=== PATIENT | male | born 1965 | race Caucasian/White ===

== ENCOUNTER 2018-02-02 07:45 | Inpatient (IN) | payer SELFPAY ==
[2018-02-02] VITALS (20 sets, daily range): BP systolic 111–186; BP diastolic 57–95; PULSE 47–84; RESP 11–24; TEMP 97.3–98.1; O2SAT 93–100
[~2018-02-02] VITALS: Ht 167.6 cm; Wt 100.5 kg
[~2018-02-02 07:45] MED LIST: ALPR.25 PO; ASPI325T PO; CARV6.25 PO; LISI-357 PO; MAGN250T13 PO; PLAV75TA PO; PRAV40TA2 PO
--- NOTE | 2018-02-02 07:57 | PD ---
HPI Chief Complaint: Chest Pain Time Seen by Provider: 07:47 Travel History International Travel<30 days: No Contact w/Intl Traveler<30days: No Traveled to known affect area: No History of Present Illness HPI 52 y/o male presents from triage with his with intermittent chest pain for the past couple of days. He states that it got worse this morning. He states he also started sweating this morning. He states that he took a full aspirin today. He states that he currently does not have insurance and has not followed with a district manager for a couple of years. He states his last stent was in 2013 and he had one also in 2005. He denies any heart workup since then. He denies any other concurrent complaints. Quality is pressure. Severity is moderate. He denies specific modifying factors. PFSH Past Medical History Hx Anticoagulant Therapy: Yes Arthritis: Yes Asthma: No Autoimmune Disease: No Blood Disorders: No Anxiety: Yes Depression: Yes Heart Rhythm Problems: No Cancer: No Cardiac Catheterization: Yes (10/25/2013) Cardiovascular Problems: Yes High Cholesterol: No Chemotherapy: No Chest Pain: Yes Congestive Heart Failure: No COPD: No Cerebrovascular Accident: No Diabetes: No Diminished Hearing: No Endocrine: No Gastrointestinal Disorders: Yes (ACID REFLUX) GERD: Yes Glaucoma: No Genitourinary: No Headaches: No Hepatitis: No Hiatal Hernia: No Hypertension: No Immune Disorder: No Kidney Stones: No Musculoskeletal: Yes Neurologic: No Psychiatric: Yes Reproductive: No Respiratory: Yes Migraines: No Myocardial Infarction: Yes () Radiation Therapy: No Renal Failure: No Seizures: No Sickle Cell Disease: No Sleep Apnea: No Thyroid Disease: No Ulcer: No Tetanus Vaccination: Unknown Influenza Vaccination: No Past Surgical History Abdominal Surgery: No AICD: No Appendectomy: No Arteriovenous Shunt: No Body Medical Devices: ESOPHAGITIS Cardiac Surgery: No Cholecystectomy: No Coronary Stent: Yes (05/2006X1 - 10/2013X1) Ear Surgery: No Endocrine Surgery: No Eye Surgery: No Genitourinary Surgery: No Gynecologic Surgery: No Insulin Pump: No Joint Replacement: No Oral Surgery: No Pacemaker: No Thoracic Surgery: No Tonsillectomy: Yes (1969) Other Surgery: Yes Social History Alcohol Use: No Tobacco Use: Yes Substance Use: No Allergies-Medications (Allergen,Severity, Reaction): Coded Allergies: No Known Allergies (Unverified , 02/02/18) Reported Meds & Prescriptions Reported Meds & Active Scripts Active Reported [Fish Oil] 1 Cap PO DAILY Aspirin 325 Mg Tab 325 Mg PO DAILY Review of Systems Except as stated in HPI: all other systems reviewed are Neg Physical Exam Narrative GENERAL: 52-year-old male who appears uncomfortable SKIN: Focused skin assessment diaphoretic HEAD: Atraumatic. Normocephalic. EYES: Pupils equal and round. No scleral icterus. No injection or drainage. ENT: No nasal bleeding or discharge. Mucous membranes pink and moist. NECK: Trachea midline. No JVD. CARDIOVASCULAR: Regular rate and rhythm. RESPIRATORY: No accessory muscle use. Clear to auscultation. Breath sounds equal bilaterally. GASTROINTESTINAL: Abdomen soft, non-tender, nondistended. MUSCULOSKELETAL: No obvious deformities. No clubbing. No cyanosis. No edema. NEUROLOGICAL: Awake and alert. No obvious cranial nerve deficits. Motor grossly within normal limits. Normal speech. Data Data Last Documented VS Vital Signs Date Time Temp Pulse Resp B/P (MAP) Pulse Ox O2 Delivery O2 Flow Rate FiO2 02/02/18 09:19 55 158/70 02/02/18 09:13 18 98 Nasal Cannula 2.00 02/02/18 07:55 97.3 Orders Orders Electrocardiogram (02/02/18 07:49) B-Type Natriuretic Peptide (02/02/18 07:49) Ckmb (Isoenzyme) Profile (02/02/18 07:49) Complete Blood Count With Diff (02/02/18 07:49) Comprehensive Metabolic Panel (02/02/18 07:49) Magnesium (Mg) (02/02/18 07:49) Prothrombin Time / Inr (Pt) (02/02/18 07:49) Act Partial Throm Time (Ptt) (02/02/18 07:49) Troponin I (02/02/18 07:49) Lipase (02/02/18 07:49) Chest, Single Ap (02/02/18 07:49) Ecg Monitoring (02/02/18 07:49) Bilateral Bp Monitoring (02/02/18 07:49) Iv Access Insert/Monitor (02/02/18 07:49) Oximetry (02/02/18 07:49) Nitroglycerin-D5w 50 Mg/250 Ml (Nitrogly (02/02/18 08:00) Sodium Chloride 0.9% Flush (Ns Flush) (02/02/18 08:00) Electrocardiogram (02/02/18 08:00) Heparin Inj (Heparin Inj) (02/02/18 08:15) Heparin Inj (Heparin Inj) (02/02/18 14:15) Heparin Inj (Heparin Inj) (02/02/18 14:15) Heparin-D5w 25,000 U/250 Ml (Heparin-D5w (02/02/18 08:15) Cbc No Diff, Includes Plts (02/05/18 06:00) Act Partial Throm Time (Ptt) (02/02/18 15:09) Occult Blood (Hemoccult) Stool (02/02/18 08:09) Diet Npo (02/02/18 Breakfast) Pantoprazole Inj (Protonix Inj) (02/02/18 08:15) Morphine Inj (Morphine Inj) (02/02/18 08:30) Ondansetron Inj (Zofran Inj) (02/02/18 08:30) Consult Cardiology (02/02/18 ) (Hub Use Only)Inp Phy Cons/Ref (02/02/18 ) Admit Order (Ed Use Only) (02/02/18 09:40) Labs Laboratory Tests Test 02/02/18 07:50 White Blood Count 11.2 TH/MM3 Red Blood Count 5.81 MIL/MM3 Hemoglobin 19.3 GM/DL Hematocrit 54.2 % Mean Corpuscular Volume 93.4 FL Mean Corpuscular Hemoglobin 33.2 PG Mean Corpuscular Hemoglobin Concent 35.5 % Red Cell Distribution Width 13.5 % Platelet Count 193 TH/MM3 Mean Platelet Volume 9.0 FL Neutrophils (%) (Auto) 63.6 % Lymphocytes (%) (Auto) 24.9 % Monocytes (%) (Auto) 8.2 % Eosinophils (%) (Auto) 2.3 % Basophils (%) (Auto) 1.0 % Neutrophils # (Auto) 7.1 TH/MM3 Lymphocytes # (Auto) 2.8 TH/MM3 Monocytes # (Auto) 0.9 TH/MM3 Eosinophils # (Auto) 0.3 TH/MM3 Basophils # (Auto) 0.1 TH/MM3 CBC Comment DIFF FINAL Differential Comment Prothrombin Time 10.5 SEC Prothromb Time International Ratio 1.0 RATIO Activated Partial Thromboplast Time 27.5 SEC Blood Urea Nitrogen 17 MG/DL Creatinine 0.98 MG/DL Random Glucose 124 MG/DL Total Protein 8.4 GM/DL Albumin 3.8 GM/DL Calcium Level 9.1 MG/DL Magnesium Level 2.2 MG/DL Alkaline Phosphatase 93 U/L Aspartate Amino Transf (AST/SGOT) 20 U/L Alanine Aminotransferase (ALT/SGPT) 41 U/L Total Bilirubin 0.3 MG/DL Sodium Level 139 MEQ/L Potassium Level 3.9 MEQ/L Chloride Level 104 MEQ/L Carbon Dioxide Level 23.8 MEQ/L Anion Gap 11 MEQ/L Estimat Glomerular Filtration Rate 80 ML/MIN Total Creatine Kinase 75 U/L Troponin I LESS THAN 0.02 NG/ML B-Type Natriuretic Peptide 37 PG/ML Lipase 313 U/L [facility] Medical Decision Making Medical Screen Exam Complete: Yes Emergency Medical Condition: Yes Medical Record Reviewed: Yes (Past history confirmed) Interpretation(s) EKG is sinus rhythm at 73, hyperacute T's laterally, no ST elevation or depression Repeat EKG unchanged CBC & BMP Diagram 02/02/18 07:50 Total Protein 8.4 H, Albumin 3.8, Calcium Level 9.1, Magnesium Level 2.2, Alkaline Phosphatase 93, Aspartate Amino Transf (AST/SGOT) 20, Alanine Aminotransferase (ALT/SGPT) 41, Total Bilirubin 0.3 Last 24 hours Impressions Chest X-Ray 02/02/18 0749 Signed Impressions: CONCLUSION: No acute abnormality or significant interval change. Differential Diagnosis PR, vasospasm, gastritis, CHF Narrative Course Will check lab work, chest x-ray, EKG and placed on nitroglycerin drip and he will need to be monitored closely. On recheck pain has gone down from 10 out 10 to 8 out of 10 on nitroglycerin drip. Repeat EKG is unchanged. Will keep n.p.o. and start heparin drip after discussion with district manager Pain is now 3 out of 10. Will dose with morphine and admit. Patient agrees to plan Critical Care Narrative Aggregate critical care time was 45 minutes. Time to perform other separately billable procedures was not included in the critical care time. My time did not include minutes spent treating any other patients simultaneously or on activities that did not directly contribute to the patient's treatment. The services I provided to this patient were to treat and/or prevent clinically significant deterioration that could result in: PR, cardiogenic shock, I provided critical care services requiring my management, as noted below: Chart data review, documentation time, medication orders and management, vital sign assessments/reviewing monitor data, ordering and reviewing lab tests, ordering and interpreting/reviewing x-rays and diagnostic studies, care of the patient and discussion of the patient with the admitting physicians. Physician Communication Physician Communication Dr. Brown agrees to nitroglycerin drip and to close repeat EKG. Dr. Brown request data input clerk.o. and heparin dr wong agrees to admit Diagnosis Primary Impression: Unstable angina Admitting Information Admitting Physician Requests: Admit Abigail Hernandez MD February 02, 2018 07:57
[2018-02-02] MEDS ORDERED: SODIUM CHLORIDE 0.9% FLUSH 10 ML FLUSH IVF PRN (08:00)
[2018-02-02] MEDS ORDERED: NITROGLYCERIN-D5W 50 MG/250 ML 250 ML IV ONE (08:00)
[2018-02-02] MEDS ORDERED: FISHOIL PO (08:07)
[2018-02-02] MEDS ORDERED: ASPI-183 PO (08:07)
[2018-02-02 08:15] LABS: AUTOMATED NEUTROPHIL # 7.1 TH/MM3 (1.8-7.7); BASOPHIL # 0.1 TH/MM3 (0-0.2); EOSINOPHIL # 0.3 TH/MM3 (0-0.4); EOSINOPHIL % 2.3 % (0.0-4.0); HEMATOCRIT 54.2 % (39.0-51.0); HEMOGLOBIN 19.3 GM/DL (13.0-17.0); LYMPH % 24.9 % (9.0-44.0); LYMPHOCYTE # 2.8 TH/MM3 (1.0-4.8); MEAN CELL VOLUME 93.4 FL (80.0-100.0); MEAN CORPUSCULAR HEMOGLOBIN 33.2 PG (27.0-34.0); MEAN CORPUSCULAR HGB CONC 35.5 % (32.0-36.0); MONO % 8.2 % (0.0-8.0); MONOCYTE # 0.9 TH/MM3 (0-0.9); NEUT % 63.6 % (16.0-70.0); PLATELET COUNT 193 TH/MM3 (150-450); RED BLOOD COUNT 5.81 MIL/MM3 (4.50-5.90); RED CELL DISTRIBUTION WIDTH 13.5 % (11.6-17.2); WHITE BLOOD COUNT 11.2 TH/MM3 (4.0-11.0)
[2018-02-02] MEDS ORDERED: HEPARIN-D5W 25,000 U/250 ML 250 ML IV PRN (08:15)
[2018-02-02] MEDS ORDERED: PANTOPRAZOLE SODIUM 40 MG VIAL IV PUSH ONE (08:15)
[2018-02-02] MEDS ORDERED: HEPARIN SODIUM - IV 10,000 UNITS/10 ML VIAL IV ONE (08:15)
[2018-02-02 08:24] LABS: PROTHROMBIN TIME - PATIENT 10.5 SEC (9.8-11.6)
[2018-02-02] MEDS ORDERED: MORPHINE SULFATE 4 MG/ML INJ IV PUSH ONE (08:30)
[2018-02-02] MEDS ORDERED: ONDANSETRON HCL 4 MG/2 ML VIAL IV PUSH ONE (08:30)
[2018-02-02 08:32] LABS: ALBUMIN 3.8 GM/DL (3.4-5.0); ALT (GPT) 41 U/L (12-78); AST (GOT) 20 U/L (15-37); BICARBONATE 23.8 MEQ/L (21.0-32.0); BLOOD UREA NITROGEN 17 MG/DL (7-18); CALCIUM 9.1 MG/DL (8.5-10.1); CHLORIDE 104 MEQ/L (98-107); CREATININE 0.98 MG/DL (0.60-1.30); GLOMERULAR FILTRATION RATE 80 ML/MIN (>89); GLUCOSE,RANDOM 124 MG/DL (74-106); MAGNESIUM 2.2 MG/DL (1.5-2.5); SODIUM (NA) 139 MEQ/L (136-145)
[2018-02-02 08:36] LABS: ALKALINE PHOSPHATASE 93 U/L (45-117); TOTAL BILIRUBIN ADULT 0.3 MG/DL (0.2-1.0); TOTAL PROTEIN 8.4 GM/DL (6.4-8.2); TROPONIN I LESS THAN 0.02 NG/ML (0.02-0.05)
--- NOTE | 2018-02-02 08:44 | RADRPT ---
EXAM DATE: 02/02/2018 8:20 AM EDT AGE/SEX: 52 years / Male INDICATIONS: Mid-chest pain and shortness of breath. CLINICAL DATA: This is the patient's initial encounter. Patient reports that signs and symptoms have been present for 3 days and indicates a pain score of 10/10. MEDICAL/SURGICAL HISTORY: None. None. COMPARISON: [facility] [place], CHEST SINGLE AP, 08/01/2012. . FINDINGS: No significant new focal pleural or parenchymal opacities. Mild diffuse interstitial promi nence similar to previous exam. The cardiomediastinal contours are unremarkable. Osseous structures are intact. CONCLUSION: No acute abnormality or significant interval change. Electronically signed by: Betito Luke MD 02/02/2018 8:43 AM EDT
[2018-02-02] MEDS ORDERED: HEPARIN-NS/PF INJ 1,000 ML ONE (11:49)
[2018-02-02] MEDS ORDERED: AMINOCAPROIC ACID INJ 250 MG/ML 20 ML VIAL IV ONE (12:00)
[2018-02-02] MEDS ORDERED: AMIODARONE HCL 150 MG/3 ML VIAL IV ONE (12:00)
[2018-02-02] MEDS ORDERED: NORMOSOL R INJ 2,000 ML IV ONE (12:00)
[2018-02-02] MEDS ORDERED: MAGNESIUM SULFATE 1 GM/2 ML VIAL IV ONE (12:00)
[2018-02-02] MEDS ORDERED: DEXTROSE 5% IN WATER 100 ML BAG IV ONE (12:00)
[2018-02-02] MEDS ORDERED: LACTATED RINGER'S 1000 ML INJ 2,000 ML IV ONE (12:00)
[2018-02-02] MEDS ORDERED: NS 100 ML (PAB BAG) 100 ML IV ONE (12:00)
[2018-02-02] MEDS ORDERED: SODIUM CHLOR 0.9% 250 ML INJ 250 ML IV ONE (12:00)
[2018-02-02] MEDS ORDERED: SODIUM CHLORID 0.9% 500 ML INJ 500 ML IV ONE (12:00)
[2018-02-02] MEDS ORDERED: HEPARIN SODIUM - SQ 10,000 UNITS/ML VIAL OTHER ONE (12:00)
[2018-02-02] MEDS ORDERED: PROTAMINE SULFATE 250 MG/25 ML VIAL IV ONE (12:00)
[2018-02-02] MEDS ORDERED: PHENYLEPH/NS 1000 MCG/10 ML SYR IV ONE (12:00)
[2018-02-02] MEDS ORDERED: SODIUM BICARBONATE 8.4% INJ 50 MEQ/50 ML SYR IV ONE (12:00)
[2018-02-02] MEDS ORDERED: DEXMEDETOMIDINE HCL 200 MCG/2 ML VIAL IV ONE (12:00)
[2018-02-02] MEDS ORDERED: VECURONIUM BROMIDE 10 MG VIAL IV ONE (12:00)
[2018-02-02] MEDS ORDERED: PHENYLEPHRINE HCL 10 MG/ML VIAL IV ONE (12:00)
[2018-02-02] MEDS ORDERED: NEOSTIGMINE METHYLSULFATE 10 MG/10 ML VIAL IV PUSH ONE (12:00)
[2018-02-02] MEDS ORDERED: GLYCOPYRROLATE 0.2 MG/ML VIAL IV ONE (12:00)
[2018-02-02] MEDS ORDERED: MIDAZOLAM HCL 2 MG/2 ML VIAL ONE ×2 (12:10→18:54)
[2018-02-02] MEDS ORDERED: HEPARIN-NS/PF INJ 500 ML ONE (12:43)
[2018-02-02] MEDS ORDERED: SODIUM CHLORIDE 0.9% FLUSH 10 ML FLUSH IV FLUSH PRN ×3 (12:45→17:45)
[2018-02-02] MEDS ORDERED: MISC INFORMATION XX ONE (12:45)
--- NOTE | 2018-02-02 12:45 | MB ---
cc: Davi Brown MD DATE: 02/02/2018 HISTORY OF PRESENT ILLNESS: Marcus is a very pleasant 52-year-old gentleman with history of PCI x 2, history of myocardial infarction, who began developing chest pain several days prior to admission: The chest pain recurred with activities of daily living this morning, 06/23, similar to the pain he had prior to his previous heart attack was relieved in the ER with aspirin, nitro and heparin drip. Otherwise, he denies any fevers, chills, cough, GI or bleeding, PND, orthopnea, syncope or dizziness. PAST MEDICAL HISTORY:. As per History of Present Illness. Also includes anxiety, depression, acid reflux, myocardial infarction in 2005 and 2013, esophagitis, stent placement May 2006 and October 2013, tonsillectomy. SOCIAL HISTORY: He does smoke. Denies alcohol use. Currently says he is vaping. ALLERGIES: NONE. MEDICATIONS PRIOR TO ADMISSION: Aspirin 325 mg daily. MEDICATIONS IN THE HOSPITAL: Heparin bolus and drip, IV nitro; the patient received aspirin 325 mg en route to the ER. PHYSICAL EXAMINATION: VITAL SIGNS: Blood pressure 113/58, pulse ranging between 47 and 55, respiratory rate 15, temperature 97.3. Note: Blood pressures were as high as 186/84 in the ER. Sats 99% on 2 liters nasal cannula. GENERAL: He is alert and oriented x 3, in no acute distress. NECK: Supple. No JVD, no bruit. HEART: S1, S2. No murmurs, rubs or gallops. LUNGS: Clear to auscultation bilaterally. ABDOMEN: Soft, nontender, nondistended with positive bowel sounds. EXTREMITIES: No lower extremity edema. LABORATORY DATA: White count of 11.2, hemoglobin 19.3, hematocrit 54.2, platelet count 193. Sodium 139, potassium 3.9, chloride 104, bicarbonate 23.8, BUN 17, creatinine 0.98, glucose 124. Troponin less than 0.02 seconds. Second troponin is 0.26. AST 20, ALT 41. INR is 1.0. IMAGING STUDIES: Chest x-ray: No acute abnormality or significant interval change. EKG is not available, but I did see this in the ER. It showed anteroseptal Q-waves, but no acute ST-T wave changes. DIAGNOSES: 1. Ccp-RL-sdsdnempt myocardial infarction. 2. Tobacco abuse. 3. Coronary artery disease. 4. Polycythemia. 5. Elevated white count. 6. Hyperglycemia. DISCUSSION: The patient has been appropriately treated with aspirin, heparin and nitro in the emergency room with relief of symptoms. Given his tobacco use, previous history of coronary artery disease, elevated troponin, lack of use of statin, it is very likely the patient is going to have an ischemic etiology to his symptoms and presentation. Therefore, I have recommended urgent left heart catheterization. I explained to the patient that the risks of catheterization with PCI is 5-10% chance of , stroke, heart attack, bleeding, infection, need for bypass surgery, surgery for dialysis, blood transfusion, bleeding, infection, anaphylaxis and arrhythmia. The patient understands and consented to proceed with the procedure. Strongly recommend smoking cessation. Further recommendations based on the details of his coronary anatomy and angiography. MD CORTES Hwang/SB , 12:16 PM , 12:45 PM
--- NOTE | 2018-02-02 13:07 | MA ---
cc: Davi Brown MD DATE: 02/02/2018 PROCEDURE PERFORMED: Left heart catheterization, left ventriculography, coronary angiography. INDICATIONS: Non-ST elevation myocardial infarction. Coronary artery disease with multiple cardiac risk factors. METHOD: The patient was brought to the cardiac catheterization lab, prepped and draped in the usual sterile fashion. 10 mL of 1% lidocaine was used to locally anesthetize his right common femoral artery. A 4-Belarusian sheath was placed in the right common femoral artery and 4-[place]ian JL4 and JR4 catheters were used to perform left and right coronary angiography and left ventriculography. FINDINGS: LV pressure is 120/10-11. The right coronary artery is dominant. It is diffusely ectatic, largest reference vessel diameter is probably at least 6.5 mm. Mild to moderate relative stenosis in the midsegment, up to 30-40% angiographically. The right PDA has a proximal bifurcation; it has mild diffuse disease of 20-30% angiographically. The right posterolateral artery is a large vessel, which has 2 bifurcation points with mild diffuse disease up to 10-20% angiographically. The left main coronary has a distal 90% stenosis. The LAD has an ostial 90% stenosis. It is a transapical vessel supplying the distal inferior wall with mild diffuse disease up to 20% angiographically. The ramus intermedius vessel is a medium-sized vessel. The ramus is a 2.5 mm vessel, mild disease up to 20% angiographically. The left circumflex vessel has an ostial 90% stenosis. The first obtuse marginal vessel is a medium to large-sized vessel, reference vessel diameter 3 mm. Mild diffuse disease up to 20% angiographically. The remainder of the AV groove left circumflex vessel has no significant disease angiographically. It supplies a very small obtuse marginal vessel off the mid-segment, 0.5 mm in diameter and 2 small posterolateral arteries, 0.5-1 mm in diameter. ASSESSMENT AND RECOMMENDATIONS: 1. Severe left main and two vessel coronary artery disease in a right dominant system, as detailed above. 2. Preserved left ventricular systolic function, ejection fraction of 55%. 3. I discussed the case with Dr. Melba Sifuentes. Would recommend urgent coronary artery bypass grafting. We will leave the sheath in place, restart the patient's heparin without a bolus which has been started in the cath laboratory technician. Order a preop 2-dimensional echocardiogram and carotid ultrasound. The patient's condition is currently critical. I strongly recommend smoking cessation. Will check fasting lipids, ALT, CK, treat per NCEP guidelines. MD CORTES Hwang/JEWEL , 12:38 PM , 01:07 PM
[2018-02-02] MEDS ORDERED: DEXTROSE 50% IN WATER 50 ML VIAL(D50) IV PUSH PRN ×2 (13:15→17:45)
[2018-02-02] MEDS ORDERED: ceFAZolin 2 GM PREMIX 50 ML IV SCH (13:15)
[2018-02-02] MEDS ORDERED: INSULIN REGULAR (IV INFUSION) 100 UNITS in SODIUM CHLORIDE 0.9% INJ 99 ML IV PRN ×2 (13:15→17:45)
[2018-02-02] MEDS ORDERED: PAPAVERINE INJ 60 MG, NITROGLYCERIN INJ 100 MCG, VERAPAMIL INJ 100 MG in SODIUM CHLORID... IRRIGATION SCH (13:15)
[2018-02-02] MEDS ORDERED: METOPROLOL TARTRATE 25 MG TAB PO SCH (13:15)
[2018-02-02] MEDS ORDERED: CEFAZOLIN INJ 500 MG in SODIUM CHLORIDE 0.9% IRR BTL 500 ML IRRIGATION SCH (13:15)
[2018-02-02] MEDS ORDERED: CHLORHEXIDINE GLUCONATE 4% SOLN 120 ML BTL TOPICAL SCH (13:15)
--- NOTE | 2018-02-02 13:17 | CATHPROC ---
[employer] HIS Report Study Information Study Number Admission Scheduled Start Study Start [id number] Feb 02 2018 9:42AM 02/02/2018 Feb 02 2018 12:00PM [place] [facility] Cardiac Catheterization Admit Source Facility Department Emergency department [facility] Physician and Clinical Staff Initial Davi Domingo Aviation Safety Techniciannicole Ruff RN, Anoop Bowers,RN Recorder Dania Pearson,RT(R) Scrub Lydia Salamanca,STACEY TECH2 Procedures Performed Procedure Location (Site) Vessel Name Coronary Angiograms LCA Left Coronary Coronary Angiograms RCA Right Coronary L Heart Cath LV Gram-hand inj. LV LV Ventricle Wire insertion Fem Art (right) Femoral Art Equipment Time Mechanic Insulator Description Size Mfg Part Number Used/Scraped TRANSDUCER, TRUWAVE [id number] 12:03 NINO SKAGGS * Used W/STOCKCOCK *[id number] *[id number] *[id number] 12:03 MEDLINE IND[employer] PACK, CCL CUSTOM * Used *[id number] 12:03 [employer] PACER PEN, SKIN DUAL W/ RULER * Used *[id number] 12:03 [employer] Shop Expert WIRE, 3MMJ .035 180CM 180CM Used *[id number] 12:03 NAMIC MANIFOLD, 4 PORT * Used *[id number] 12:03 NYCOMED OMNIPAQUE, 350 MG, 150ML 150ML [id number] Used 12:24 NYCOMED OMNIPAQUE, 350 MG, 150ML 150ML [id number] Used [id number] 12:03 [employer] MED[employer] BLANKET,WARM AIR CCL * Used *[id number] 12:03 TERUMO MEDICAL SHEATH, FR4 TERUMO (10CM) FR 4 Used *[id number] History: Allergies Allergy Reaction No Known Allergies History: Risk Factors Family History of Hypertension Dyslipidemia Previous AL Previous Heart Failure Premature CAD Yes Yes Yes Yes No Prior Valve Prior PCI Prior PCIDate Prior CABG Surgery No Yes 10/25/2013 No Cerebrovascular Peripheral Artery Chronic Lung On Dialysis Diabetes Disease Disease Disease No No No No No History: Symptoms/Diagnosis Selection Items Chest pain History: CV Disease Selection Items Known CAD History: Stress Tests Stress or Imaging Studies Performed No History: Other Current Smoker Method Packs a Day Years Used Pack Years Yes Cigarettes 2 32 64 Labs Hgb (g/dl) Hct (%) RBC (MIL/MM3) WBC (l/cumm) Platelets (thousands) 11.60-17.00 35.00-51.00 4.00-5.90 4.00-11.00 150.00-450.00 19.3 54.2 5.8 11.2 193 Glucose (mg/dl) BUN (mg/dl) Creatinine (mg/dl) BUN:Creatinine (1:x) 74.00-106.00 7.00-18.00 0.50-1.30 10.00-20.00 124 17 0.9 18.9 Na (meq/l) K (meq/l) Cl (meq/l) CO2 (mmol/L) Ca (mg/dl) 136.00-145.00 3.50-5.10 98.00-107.00 21.00-32.00 8.50-10.10 139 3.9 104 23.8 9.1 PT (sec) PTT (sec) INR (PTT:PT) 9.80-11.60 24.30-30.10 0.90-1.10 10.5 27.5 1 Troponin I (ng/ml) CPK (u/l) CPK-MB (ng/ML) 0.02-0.05 26.00-308.00 0.50-3.60 0.26 75 Not Drawn Medication Medication Total Dose (Bolus/Oral) Medication Total Dosage/Unit 1% XYLOCAINE 20 mL FENTANYL 25 mcg VERSED 1 mg Medications (Bolus/Oral) Medication Time Given Dosage/Unit Administered By Reason VERSED 02/02/2018 12:12:38 PM 1 mg Anoop Welch 1 mg VERSED given in lab by Anoop Welch RN via Peripheral IV. FENTANYL 02/02/2018 12:13:50 PM 25 mcg Anoop Welch 25 mcg FENTANYL given in lab by Anoop Welch RN via Peripheral IV. 1% XYLOCAINE 02/02/2018 12:18:01 PM 20 mL Davi Brown 20 mL 1% XYLOCAINE given in lab by Davi Brown in Right Groin via Subcutaneous. Medication (Drip) Medication Time Given Dosage/Unit Concentration/Unit Diluent (ml) Solution HEPARIN DRIP 02/02/2018 12:35:10 PM 1000 units/hr 28182 units 250 D5W 1000 units/hr HEPARIN DRIP given in lab by Davi Brown via Peripheral IV. Pump/Drip Flow = 10 ml /hr [place] [address] units in 250 ml. IV Solutions 02/02/2018 12:05:22 PM 0 mL (IV) 500 NaCl .9 Patient arrived on IV Solutions in Left Antecubital via Peripheral IV. Pump/Drip Flow = 20 ml/hr usin g NaCl .9. NITROGLYCERIN DRIP 02/02/2018 12:04:47 PM 30 mcg/min 50 mg 250 D5W Patient arrived on 30 mcg/min NITROGLYCERIN DRIP in Right Forearm via Peripheral IV. Pump/Drip Flow = 9 ml/hr using D5W with a concentration of 50 mg in 250 ml. Initial Case Assessment Cardiovascular HR Rhythm NIBP Chest Pain 55 reg 133/83 0 Edema Present Skin color Skin None Normal Warm Circulatory - Right Pulses Dorsalis Pedis Femoral 2 2 Scale (0,1,2,3,4,d) Circulatory - Left Pulses Dorsalis Pedis Femoral 2 2 Scale (0,1,2,3,4,d) Circulatory - Lower Extremities Color Lower Right Color Lower Left Normal Normal Neurological State Oriented to time-place- Alert Moves all extremities person Respiration - General Respiration Rate SpO2 (%) (B/min) 15 96 Final Case Assessment Cardiovascular HR Rhythm NIBP Chest Pain 75 reg 128/82 0 Edema Present Skin color Skin None Normal Warm Circulatory - Right Pulses Dorsalis Pedis Femoral 2 2 Scale (0,1,2,3,4,d) Circulatory - Left Pulses Dorsalis Pedis Femoral 2 2 Scale (0,1,2,3,4,d) Circulatory - Lower Extremities Color Lower Right Color Lower Left Normal Normal Neurological State Oriented to time-place- Alert Moves all extremities person Respiration - General Respiration Rate SpO2 (%) (B/min) 12 94 Chronological Log Time Study Chronological Log 11:45:31 Patient arrived via Bed. 11:45:59 heparin discontinued 11:46:37 Patient Name, D.O.B, / Armband Verified By R.N. 11:47:42 Consent signed by the physician and the patient and verified by the [facility] staff. 11:48:46 Pre-op and post- op instructions given; patient acknowledges understanding of instructions. 11:49:52 Verbal Stimulation=2 Physical Stimulation=2 Airway=2 Respiration=2 TOTAL=8. (0=absent, 1=li mited, 2=present) 11:50:10 Verbal Stimulation=2 Physical Stimulation=2 Airway=2 Respiration=2 TOTAL=8. (0=absent, 1=li mited, 2=present) Vitals capture started with the following parameters, Patient=Adult, Interval=5 min, Initial Pr fyyqxm=284 mmHg, 12:00:15 Deflation Rate=5 mmHg, Cuff placed on Left Arm 12:00:29 Reference ECG taken 12:01:18 Patient has been NPO for More than 6Hrs. 12:01:19 Skin Breakdown-none 12:02:07 HR=57 bpm, QIGI=336/91 mmhg, SpO2=95.0 %, Resp=11 B/min, Pain=0, Vish=10, Wiggins=2 12:04:36 Patient Warmer Placed on the Table. 12:04:37 A # 20 IV was noted in the Forearm (right). Grade = 0 Patient arrived on 30 mcg/min NITROGLYCERIN DRIP in Right Forearm via Peripheral IV. Pump/Drip Flow = 9 ml/hr 12:04:47 using D5W with a concentration of 50 mg in 250 ml. 12:05:15 A # 20 IV was noted in the Antecubital (left). Grade = 0 12:05:22 Patient arrived on IV Solutions in Left Antecubital via Peripheral IV. Pump/Drip Flow = 20 ml/hr using NaCl .9. 12:05:45 History and physical on the chart or being dictated. Assessment: Initial Case, HR=55 BPM, Rhythm=reg, QPMG=665/83 mmhg, Chest Pain=0, Edema=None, Co mahendra=Normal, Skin = Warm Right Pulses: Brenton Ped=2, Femoral=2 Left Pulses: [place] Ped=2, Femoral=2 12:05:46 Lower Right Extremities: Color=Normal Lower Left Extremities: Color=Normal Neurological: State=Alert, Ox3, NGO Respiration: Resp=15 B/min, SpO2=96 % 12:06:35 Pressure channel 1 zeroed. 12:06:42 HR=56 bpm, IEYN=442/83 mmhg, SpO2=96.0 %, Resp=13 B/min, Pain=0, Vish=10, Wiggins=2 12:07:18 Bilateral groins prepped with 2% chlorhexidine, and draped after a 3 minute waiting time. 12:07:29 MD arrived. Time Out. Correct patient, correct procedure, correct physician, labs, allergies, and equipment verified with oil laboratory analyst 12:11:18 team present. Fire risk assesment completed (see hard stop sheet for coding). Time Out Conc urred by MD and individual staff in procedure. 12:11:39 HR=53 bpm, DXQE=964/76 mmhg, SpO2=95.0 %, Resp=12 B/min, Pain=0, Vish=10, Wiggins=2 12:12:38 1 mg VERSED given in lab by Anoop Welch, CARMEL via Peripheral IV. 12:13:50 25 mcg FENTANYL given in lab by Anoop Welch RN via Peripheral IV. 12:17:08 HR=54 bpm, SDQW=028/74 mmhg, SpO2=93.0 %, Resp=14 B/min, Pain=0, Vish=10, Wiggins=2 12:17:49 Case Start 12:17:51 Verbal Stimulation=2 Physical Stimulation=2 Airway=2 Respiration=2 TOTAL=8. (0=absent, 1=li mited, 2=present) 12:18:01 20 mL 1% XYLOCAINE given in lab by Davi Brown in Right Groin via Subcutaneous. 12:19:00 Access site was Right Femoral Artery. 12:19:05 A wire was inserted via Fem Art (right). 12:19:07 A SHEATH, FR4 TERUMO (10CM) FR 4 was advanced into the Fem Art (right) using the Percutaneo us technique. 12:19:32 Activated Clotting Time Drawn A JR 4.0 INFINITI CATHETER FR 4 was advanced over a wire. OMNIPAQUE, 350 MG, 150ML 150ML was us ed for 12:20:05 injections. Recorded Pressure: LV, HR=55, Condition=Condition 1 12:21:06 (Left Ventricle) LV 111/1/9 Recorded Pressure: LV, HR=57, Condition=Condition 1 12:21:17 (Left Ventricle) LV 113/-1/4 12:21:27 The LV was manually injected with 8 cc's and visualized. OMNIPAQUE, 350 MG, 150ML 150ML use d. Recorded Pressure: LV, Ao, HR=57, Condition=Condition 1 12:21:31 (Left Ventricle) LV 23/-5/22, (Aorta) Ao 109/67/85 12:21:37 HR=58 bpm, BIXM=276/75 mmhg, SpO2=94.0 %, Resp=12 B/min, Pain=0, Vish=10, Wiggins=2 12:22:25 The RCA was injected and visualized at various angles. OMNIPAQUE, 350 MG, 150ML 150ML used . Recorded Pressure: Ao, HR=56, Condition=Condition 1 12:22:31 (Aorta) Ao 108/65/82 12:22:43 ACT (Normal Range 90-180) = 168 12:23:06 Catheter was removed A JL 4.0 INFINITI CATHETER FR 4 was advanced over a wire. OMNIPAQUE, 350 MG, 150ML 150ML was us ed for 12:23:21 injections. 12:24:58 The LCA was injected and visualized at various angles. OMNIPAQUE, 350 MG, 150ML 150ML used . 12:26:38 HR=73 bpm, RIDO=367/82 mmhg, SpO2=93 %, Resp=20 B/min, Pain=0, Vish=10, Wiggins=2 12:27:22 Catheter was removed 12:27:33 Case End Assessment: Final Case, HR=75 BPM, Rhythm=reg, DPEI=303/82 mmhg, Chest Pain=0, Edema=None, [place] r=Normal, Skin = Warm Right Pulses: Brenton Ped=2, Femoral=2 Left Pulses: Brenton Ped=2, Femoral=2 12:28:04 Lower Right Extremities: Color=Normal Lower Left Extremities: Color=Normal Neurological: State=Alert, Ox3, NGO Respiration: Resp=12 B/min, SpO2=94 % 12:28:32 Catheter(s) removed without difficulty 12:30:35 Sheath(s) left in place,sutured,and connected to franky 12::39 HR=59 bpm, PDEA=268/79 mmhg, SpO2=93.0 %, Resp=18 B/min, Pain=0, Vish=10, Wiggins=2 12:31:43 Sterile dressing applied to site 12::44 No case complications noted. 12::46 Cine recording checked. 12:31:49 Bedside Report will be given. 12:31:54 dr garcia consulted 12:32:30 A Left Heart Cath was performed. 12:32:33 Clinical correlaton risk stratification. 12:33:28 dr garcia arrived to view films 1000 units/hr HEPARIN DRIP given in lab by Davi Brown via Peripheral IV. Pump/Drip Flow = 10 ml/hr using D5W 12:35:10 [place] [address] units in 250 ml. 12:36:38 HR=54 bpm, NQQC=086/75 mmhg, SpO2=94.0 %, Resp=14 B/min, Pain=0, Vish=10, Wiggins=2 12:41:39 HR=58 bpm, GJYM=275/71 mmhg, SpO2=94.0 %, Resp=7 B/min, Pain=0, Vish=10, Wiggins=2 12:46:40 HR=52 bpm, MNHY=851/69 mmhg, SpO2=92.0 %, Resp=12 B/min, Pain=0, Vish=10, Wiggins=2 12:46:41 In the Fem Art (right) the SHEATH, FR4 TERUMO (10CM) FR [address] by Kaveh Salamanca, BANK MESSENGER TECH2. 12:50:58 stat echo being done now 12:52:12 HR=52 bpm, GBZN=483/66 mmhg, SpO2=94.0 %, Resp=10 B/min, Pain=0, Vish=10, Wiggins=2 12:52:21 Pressure channel 1 zeroed. 12:56:38 HR=57 bpm, HITF=454/66 mmhg, SpO2=93 %, Resp=19 B/min, Pain=0, Vish=10, Wiggins=2 13:01:39 HR=57 bpm, AYGF=172/63 mmhg, SpO2=90.0 %, Resp=15 B/min, Pain=0, Vish=10, Wiggins=2 13:05:31 Baylee Go CHILD WELFARE SPECIALIST consulting with pt 13:06:40 HR=58 bpm, KLZR=993/72 mmhg, SpO2=93.0 %, Resp=9 B/min, Pain=0, Vish=10, Wiggins=2 13:11:37 Vitals capture stopped. End Study - Contrast Media Used In Study Contrast Total Opened (mL) Total Used (mL) Total Wasted (mL) Omnipaque 25 25 0 End Study - Maximum Contrast Load Max Contrast Load (mL) 600.0 End Study - Radiation Exposure Fluoro Time (minutes) 2.0 End Study - Patient Disposition Complications Transferred To Interventional Outcome No Critical Care Bed No attempt made
[2018-02-02] MEDS ORDERED: HEPARIN SODIUM - SQ 10,000 UNITS/ML VIAL ONE (13:19)
[2018-02-02] MEDS ORDERED: methylPREDNISolone SOD SUCC 125 MG/2 ML VIAL ONE (13:19)
[2018-02-02] MEDS ORDERED: VANCOMYCIN HCL 1000 MG VIAL ONE (13:20)
[2018-02-02] MEDS ORDERED: ceFAZolin 2 GM PREMIX 50 ML ONE (13:20)
--- NOTE | 2018-02-02 13:24 | ECHRPT ---
Indication: Chest pain, unspecified CONCLUSIONS The left ventricular systolic function is low normal with an estimated ejection fraction in the rang e of 50- 55%. Wall thickness is measured at the upper limits of normal. Normal left ventricular size. BP: / HR: Rhythm: Sinus MEASUREMENTS (Male / Female) Normal Values Technical Quality:Fair 2D ECHO LV Diastolic Diameter PLAX 4.4 cm 4.2 - 5.9 / 3.9 - 5.3 cm LV Systolic Diameter PLAX 3.5 cm IVS Diastolic Thickness 1.1 cm 0.6 - 1.0 / 0.6 - 0.9 cm LVPW Diastolic Thickness 1.1 cm 0.6 - 1.0 / 0.6 - 0.9 cm LV Relative Wall Thickness 0.5 LVOT Diameter 2.0 cm M-MODE Aortic Root Diameter MM 3.3 cm LA Systolic Diameter MM 4.1 cm LA Ao Ratio MM 1.2 AV Cusp Separation MM 2.0 cm DOPPLER AV Peak Velocity 151.0 cm/s AV Peak Gradient 9.1 mmHg LVOT Peak Velocity 93.8 cm/s LVOT Peak Gradient 3.5 mmHg AV Area Cont Eq pk 2.0 cm Mitral E Point Velocity 84.4 cm/s Mitral A Point Velocity 41.5 cm/s Mitral E to A Ratio 2.0 LV E' Lateral Velocity 12.1 cm/s Mitral E to LV E' Lateral Ratio 7.0 LV E' Septal Velocity 8.3 cm/s Mitral E to LV E' Septal Ratio 10.2 PV Peak Velocity 90.9 cm/s PV Peak Gradient 3.3 mmHg FINDINGS LEFT VENTRICLE The left ventricular systolic function is low normal with an estimated ejection fraction in the rang e of 50- 55%. Wall thickness is measured at the upper limits of normal. Normal left ventricular size. RIGHT VENTRICLE Normal right ventricular size and systolic function. LEFT ATRIUM The left atrial size is normal. RIGHT ATRIUM The right atrial size is normal. ATRIAL SEPTUM Normal atrial septal thickness without atrial level shunting by limited color doppler interrogation. AORTA The aortic root and proximal ascending aorta are normal in size on limited imaging. MITRAL VALVE Structurally normal mitral valve. No mitral valve stenosis or regurgitation. AORTIC VALVE Trileaflet aortic valve. No aortic valve stenosis or regurgitation. TRICUSPID VALVE Structurally normal tricuspid valve. No tricuspid valve stenosis or regurgitation. PULMONARY VALVE The pulmonary valve is not well visualized. VESSELS The inferior vena cava is normal in size. PERICARDIUM No pericardial effusion. Davi Kevin MD, FACC, FSCAI (Electronically Signed) Final Date:02 Feb 2018 13:23
[2018-02-02] MEDS ORDERED: IOHEXOL 350 MG/ML 50 ML BTL (for Cath Lab) OTHER ONE (13:26)
[2018-02-02] MEDS ORDERED: ceFAZolin 2 GM in NS 100 ML IV SCH (13:30)
[2018-02-02] MEDS ORDERED: PILL SPLITTER OTHER PRN (13:45)
[2018-02-02 13:49] LABS: ALBUMIN 3.6 GM/DL (3.4-5.0); DIRECT BILIRUBIN ADULT 0.1 MG/DL (0.0-0.2)
[2018-02-02 13:51] LABS: CHOLESTEROL/ HDL RATIO 5.04 RATIO; HDL CHOLESTEROL 36.3 MG/DL (40.0-60.0); INDIRECT BILIRUBIN 0.2 MG/DL (0.0-0.8); TOTAL BILIRUBIN ADULT 0.3 MG/DL (0.2-1.0); TOTAL PROTEIN 7.8 GM/DL (6.4-8.2)
[2018-02-02] MEDS ORDERED: HEPARIN SODIUM - IV 10,000 UNITS/10 ML VIAL IV PRN ×2 (14:15)
[2018-02-02] MEDS ORDERED: ALBUMIN 25% INJ 50 ML IV ONE (14:30)
[2018-02-02] MEDS ORDERED: CARDIOPLEGIC IRR 2,000 ML ONE (14:30)
[2018-02-02] MEDS ORDERED: POTASSIUM CHLOR 40 MEQ PREMIX 100 ML ONE (14:30)
[2018-02-02] MEDS ORDERED: HEPARIN SODIUM - IV 10,000 UNITS/10 ML VIAL ONE (14:31)
[2018-02-02] MEDS ORDERED: SODIUM BICARBONATE 8.4% INJ 100 ML ONE (14:31)
[2018-02-02] MEDS ORDERED: MANNITOL INJ 100 ML ONE (14:31)
[2018-02-02] MEDS ORDERED: CALCIUM CHLORIDE 10% SOLN 1 GRAM/10 ML SYR ONE (14:32)
--- NOTE | 2018-02-02 15:23 | PD.CAR.PN ---
CVT Progress Note Subjective/Hospital Course: pt seen and evaluated / full consult to follow RISK SCORES About the STS Risk Calculator Procedure: CAB Only Risk of Mortality: 0.754% Morbidity or Mortality: 9.562% Long Length of Stay: 2.907% Short Length of Stay: 66.61% Permanent Stroke: 0.467% Prolonged Ventilation: 7.592% DSW Infection: 0.35% Renal Failure: 1.213% Reoperation: 4.273% Objective: Vital Signs Date Time Temp Pulse Resp B/P (MAP) Pulse Ox O2 Delivery O2 Flow Rate FiO2 02/02/18 13:45 98.1 56 16 125/81 (96) 93 122/64 (83) 02/02/18 13:00 60 02/02/18 11:31 47 15 113/58 (76) 96 Nasal Cannula 2.00 02/02/18 11:30 47 15 113/58 (76) 96 Nasal Cannula 2.00 02/02/18 10:36 47 15 121/68 (85) 96 Nasal Cannula 2.00 02/02/18 10:05 48 112/58 02/02/18 09:19 55 158/70 02/02/18 09:13 53 18 125/63 (83) 98 Nasal Cannula 2.00 02/02/18 09:10 53 125/63 02/02/18 08:24 50 14 171/95 (120) 99 Nasal Cannula 2.00 02/02/18 08:21 57 171/95 02/02/18 08:13 54 180/111 02/02/18 08:09 54 21 186/84 (118) 99 Nasal Cannula 2.00 02/02/18 08:03 60 160/79 02/02/18 07:55 97.3 76 21 169/76 (107) 99 Nasal Cannula 2.00 160/79 (106) 02/02/18 07:53 76 21 169/76 (107) 100 Nasal Cannula 2.00 02/02/18 07:51 76 22 169/76 (107) 99 Nasal Cannula 2.00 02/02/18 07:51 76 24 99 Nasal Cannula 2.00 02/02/18 07:46 84 24 169/76 (107) Labs: Laboratory Tests Test 02/02/18 07:50 02/02/18 10:43 White Blood Count 11.2 TH/MM3 (4.0-11.0) Red Blood Count 5.81 MIL/MM3 (4.50-5.90) Hemoglobin 19.3 GM/DL (13.0-17.0) Hematocrit 54.2 % (39.0-51.0) Mean Corpuscular Volume 93.4 FL (80.0-100.0) Mean Corpuscular Hemoglobin 33.2 PG (27.0-34.0) Mean Corpuscular Hemoglobin Concent 35.5 % (32.0-36.0) Red Cell Distribution Width 13.5 % (11.6-17.2) Platelet Count 193 TH/MM3 (150-450) Mean Platelet Volume 9.0 FL (7.0-11.0) Neutrophils (%) (Auto) 63.6 % (16.0-70.0) Lymphocytes (%) (Auto) 24.9 % (9.0-44.0) Monocytes (%) (Auto) 8.2 % (0.0-8.0) Eosinophils (%) (Auto) 2.3 % (0.0-4.0) Basophils (%) (Auto) 1.0 % (0.0-2.0) Neutrophils # (Auto) 7.1 TH/MM3 (1.8-7.7) Lymphocytes # (Auto) 2.8 TH/MM3 (1.0-4.8) Monocytes # (Auto) 0.9 TH/MM3 (0-0.9) Eosinophils # (Auto) 0.3 TH/MM3 (0-0.4) Basophils # (Auto) 0.1 TH/MM3 (0-0.2) CBC Comment DIFF FINAL Differential Comment Prothrombin Time 10.5 SEC (9.8-11.6) Prothromb Time International Ratio 1.0 RATIO Activated Partial Thromboplast Time 27.5 SEC (24.3-30.1) Blood Urea Nitrogen 17 MG/DL (7-18) Creatinine 0.98 MG/DL (0.60-1.30) Random Glucose 124 MG/DL (74-106) Total Protein 8.4 GM/DL (6.4-8.2) 7.8 GM/DL (6.4-8.2) Albumin 3.8 GM/DL (3.4-5.0) 3.6 GM/DL (3.4-5.0) Calcium Level 9.1 MG/DL (8.5-10.1) Magnesium Level 2.2 MG/DL (1.5-2.5) Alkaline Phosphatase 93 U/L (45-117) 81 U/L (45-117) Aspartate Amino Transf (AST/SGOT) 20 U/L (15-37) 23 U/L (15-37) Alanine Aminotransferase (ALT/SGPT) 41 U/L (12-78) 39 U/L (12-78) Total Bilirubin 0.3 MG/DL (0.2-1.0) 0.3 MG/DL (0.2-1.0) Sodium Level 139 MEQ/L (136-145) Potassium Level 3.9 MEQ/L (3.5-5.1) Chloride Level 104 MEQ/L (98-107) Carbon Dioxide Level 23.8 MEQ/L (21.0-32.0) Anion Gap 11 MEQ/L (5-15) Estimat Glomerular Filtration Rate 80 ML/MIN (>89) Total Creatine Kinase 75 U/L (39-308) Troponin I LESS THAN 0.02 NG/ML 0.26 NG/ML (0.02-0.05) B-Type Natriuretic Peptide 37 PG/ML (0-100) Lipase 313 U/L (73-393) Direct Bilirubin 0.1 MG/DL (0.0-0.2) Indirect Bilirubin 0.2 MG/DL (0.0-0.8) Triglycerides Level 107 MG/DL (42-150) Cholesterol Level 183 MG/DL (120-200) LDL Cholesterol 125 MG/DL (0-99) HDL Cholesterol 36.3 MG/DL (40.0-60.0) Cholesterol/HDL Ratio 5.04 RATIO Result Diagram: 02/02/18 0750 02/02/18 0750 Parisa Higgins February 02, 2018 15:23
--- NOTE | 2018-02-02 15:44 | HHI.FF ---
Face to Face Verification Diagnosis: (1) Acute systolic CHF (congestive heart failure) (2) ST elevation myocardial infarction (STEMI) of anterior wall (3) CAD (coronary artery disease) (4) S/P CABG (coronary artery bypass graft) Home Health Nursing Order: Signs/symptoms of disease process Medication education-adverse effect Wound care and dressing changes Nursing assessment with vital signs Instructions: PREVENA Single Use Negative Wound Therapy System Caregiver Instruction Sheet 1. A Prevena dressing system was applied to the chest incision during surgery , to promote wound healing. It works via a suction device (negative pressure wound therapy) to remove low to moderate levels of exudate (drainage) and infectious materials. We recommend that the device stay in place for up to seven days, from day of surgery. 2. Day of Surgery__/ Day of Removal ___/ 3. The dressing should only be removed by a health urgent care nurse practitioner. Please arrange removal of device to coincide with Home Health visit and or with Nursing staff at Rehab 4. If skin reddening or irritation of skin occurs, or excessive drainage, please notify the Cardiovascular Surgeons office at [phone]. 5. Light showering is permissible; however the pump should be disconnected and placed in safe location, where it will not get wet. The dressing should not be exposed to direct spray or submerged in water. No bath tub / shower only. Ensure the end of the tubing attached to the dressing is facing down so that water does not enter the top of the tube. 6. To remove Prevena dressing: press purple button to turn off device / remove the suction. Then disconnect the tubing from the pump. The fixation strips should be stretched away from the skin and the dressing lifted at one corner and peeled back until it has been fully removed. 7. After removal, it is ok to shower daily using liquid dial soap and clean wash cloth, rinse and pat dry, and leave incision open to air dry. For any concerns regarding Prevena dressing, and or wounds, please contact Daniella Spencer, patient navigator at [phone] or notify the Cardiovascular Surgeons office at [phone]. 3 Heart and Vascular Surgery patients *Special attention to sternal dressing Mandatory frequency Assess and evaluation, 4 days in a row The next week 3X week 2 times a week for 4 weeks 1 time a week for 5 weeks Schedule Heart and Vascular patients for full 60 day certification period Initial visit Review Open Heart Surgery Discharge Instructions (Sternal precautions, Activity, Elastic hose, Incision care, Driving, Incentive spirometry, Smoking, [place], Work and other) Need Betadine to paint incision Medication reconciliation Importance of follow up care/ check on appointments Make calendar record temperature daily When to call [facility] at Home nurse, review instructions, phone list Incentive Spirometry, demonstration Visit 1- Begin discharge instruction for patient family and/ or caregiver using teach back method- Signs and symptoms of infection Disease characteristics Medicines and side effects Foods and nutrition/ appetite Infection control/ hand washing/ hygiene Visit 2- Continue teaching Discharge instructions- include additional information on smoking cessation , sternal dressing (sternal vac) Visit 3- Continue teaching- Cough and deep breathing, incision monitoring. Choose my plate Visit 4- Continue teaching- Discuss limitations Discuss how they are feeling Discuss progress toward goals Remaining visits- continue teaching and monitoring For any questions please call : Thursday 8am-5pm Heart & Vascular Surgery Office ( Dr. Cho & Dr. Sifuentes), After Hours / Nights (5pm -8am) Weekends and Holidays Please call [facility] Card[facility] Unit ([facility]) Charge Nurse Incentive spirometry Q1 hr x 10, while awake, also use acapella device hourly whole awake Sternal Breast Bone Precautions: NO pushing or pulling, ( pt must use sternal pillow to support chest with all activities and with coughing ( takes up to 3 months breast bone to heal ) Daily incision care: ok to shower daily, no tub bath. Wash all incisions with liquid dial soap, clean wash cloth to each site, rinse and pat dry. Observe for any signs of infection, such as drainage which is dark yellow, mann, green or foul smelling. Immediately report to the surgeon any drainage from the chest incision, or legs, and for any abnormal drainage from the chest tube sites. Notify surgeon if any temp >101.5 degrees F. When specialty dressing removed/ or if you do not have one, continue to shower daily as above, then rinse and pat incision dry and paint with betadine daily x 5 days. Allow steri strips to fall off if you have any. Avoid lotions, creams, salves, oils, etc. for the first month Please see attached forms for additional instructions regarding post Open Heart specialty wound vacuum dressings. WAYNE or Prevena , Dressing to be removed by Nursing staff on _02/09/[address] Sifuentes patients , please obtain CBC, BMP, PA & Lat CXR in 2 weeks, results to Dr. Sifuentes ( prescription will be given) ( ) (Tele: [phone]) , F/U appointment: as per DC instructions: PCP in 2 weeks, CV surgeon 2 weeks, Risk Control Manager 3-4 weeks For any questions regarding incisions/ dressing / meds / post op care or above Symptoms, Thursday 8am-5pm Heart & Vascular Surgery Office ( Dr. Cho & Dr. Sifuentes), After Hours / Nights (5pm -8am) Weekends and Holidays Please call [facility] ([facility]) Charge Nurse I have seen patient Marcus Lewis on 02/02/18. My clinical findings support the need for the requested home health care services because: Deconditioned w/ increased weakness I certify that my clinical findings support that this patient is homebound because: Post-op weakness Parisa Higgins February 02, 2018 15:44
--- NOTE | 2018-02-02 16:01 | MB ---
cc: Parisa Higgins Jacqueline R ARNP DATE: 02/02/2018 DATE OF : 1965 HISTORY OF PRESENT ILLNESS: A 52-year-old male with history of coronary artery disease with prior PCI 10 years ago for the first and then in October of 2013. He has 2 stents into the LAD. He presented to the emergency room with chest pain 10/10 early this morning, felt like it was the same kind of pain that he had with his previous LA. His pain was relieved with aspirin, nitro and heparin drip. Troponin peaked at 0.26. He was taken to the laborer shaft sinking by Dr. Brown with risk factors including age, prior LA, tobacco abuse. Catheterization showed ejection fraction of 55%, left main disease 95%, proximal LAD 95%. The circumflex was 90%. We were called immediately to take the patient to the operating room after discussing and interviewing the patient in the laborer shaft sinking. PAST MEDICAL HISTORY: Includes anxiety, depression, prior LA in 2005 and 2013, esophagitis, tonsillectomy. The patient has had no followup with primary care physician. He was on the Plavix for a short time after his last stent placement. MEDICATIONS: He only takes an aspirin. ALLERGIES: HE HAS NO KNOWN ALLERGIES. PAST SURGICAL HISTORY: Tonsillectomy, cardiac stent placement. FAMILY HISTORY: Mother with ovarian cancer. Father alive, has history of heart disease with a stent. 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 He has been smoking since age 15, 1/2 pack to 1 pack per day, but stopped in September. He now uses a vaporizing cigarette. REVIEW OF SYSTEMS: GENERAL: No night sweats, fever, heat or cold intolerance. SKIN: No psoriasis, itching or hives. HEENT: No blurred vision or hearing loss. He does have poor dentition, some loose teeth in the left upper back molar area. NECK: His neck is supple. CHEST: He has positive chest pain as above in the HPI. GASTROINTESTINAL: No diarrhea or vomiting. GENITOURINARY: No burning, frequency, urgency. NEUROLOGIC: No history of TIA, CVA, seizure disorder. ENDOCRINOLOGY: No history of diabetes and/or hypothyroidism. PHYSICAL EXAMINATION: VITAL SIGNS: Blood pressure 120/60, heart rate of 56, temperature max 98.1. The patient is awake, alert, currently pain free. HEENT: Head is normocephalic, atraumatic. Pupils equal and reactive. Oral mucosa pink, moist. NECK: Supple. No JVD. He has got very poor dentition with some halitosis. HEART SOUNDS: S1, S2. Regular rate and rhythm. No audible rubs, murmurs, gallops. LUNGS: Clear to auscultation. No wheezes, rales or rhonchi. ABDOMEN: Obese, soft, nontender. No masses or organomegaly. EXTREMITIES: No cyanosis, clubbing, or edema. LABORATORY DATA: Hemoglobin 19, hematocrit of 54, white cell count of 11, platelet count of 193. Sodium 139, potassium 3.9, BUN of 17 with a creatinine of 0.98, glucose 124, AST 23, ALT 39. Troponin 0.26, triglycerides 107, cholesterol 183, LDL 125. INR 1.0. IMAGING STUDIES: Chest x-ray: No acute changes. Echocardiogram: EF of 50%. No valvular disease. IMPRESSION: This is a 52-year-old male admitted with a non-ST elevation myocardial infarction, underwent emergent cardiac catheterization with left main disease. At this time, the cardiac films have been reviewed by Dr. Melba Sifuentes. Procedures, alternatives and risks discussed with the patient. STS data documented at 0.754%. PLAN: The patient will be taken emergently to the operating room today for coronary artery bypass x 2. The patient is agreeable. I did discuss and get the consent signed by the since the patient had received some sedation during his heart catheterization. JOSEPHINE Acharya MD JRT/JEWEL , 03:31 PM , 04:00 PM
--- NOTE | 2018-02-02 16:34 | HHI.HP ---
[facility] [place] Physician No Primary Care Physician Admission Diagnosis unstable angina Diagnoses: Chief Complaint: chest pain Travel History International Travel<30 Days: No Contact w/Intl Traveler <30 Da: No Traveled to Known Affected Are: No History of Present Illness A 52-year-old male with history of coronary artery disease with prior PCI 10 years ago for the first and then in October of 2013. He has 2stents into the LAD. He presented to the emergency room with chest pain 10/ early this morning, felt like it was the same kind of pain that he had with his previous TN. His pain was relieved with aspirin,nitro and heparin drip. Troponin peaked at 0.26. He was taken to the laborer pullet farm by Dr. Brown. Cardiac Catheterization showed ejection fraction of 55%, left main disease 95%, proximal LAD 95%. The circumflex was 90%. Cardiothoracic surgery was emergently consulted for surgery Past Family Social History Past Medical History MEDICATIONS: He only takes an aspirin. Hypertension, CAD Past Surgical History Tonsillectomy, cardiac stent placement. Reported Medications Aspirin Allergies: Coded Allergies: No Known Allergies (Unverified , 02/02/18) Family History Mother with ovarian cancer. Father alive, has history of heart disease with a stent. 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 He has been smoking since age 15, 1/2 pack to 1 pack per day, but stopped in September. He now uses a vaporizing cigarette. rare alcohol use Physical Exam Vital Signs Vital Signs Date Time Temp Pulse Resp B/P (MAP) Pulse Ox O2 Delivery O2 Flow Rate FiO2 02/02/18 13:45 98.1 56 16 125/81 (96) 93 122/64 (83) 02/02/18 13:00 60 02/02/18 11:31 47 15 113/58 (76) 96 Nasal Cannula 2.00 02/02/18 11:30 47 15 113/58 (76) 96 Nasal Cannula 2.00 02/02/18 10:36 47 15 121/68 (85) 96 Nasal Cannula 2.00 02/02/18 10:05 48 112/58 02/02/18 09:19 55 158/70 02/02/18 09:13 53 18 125/63 (83) 98 Nasal Cannula 2.00 02/02/18 09:10 53 125/63 02/02/18 08:24 50 14 171/95 (120) 99 Nasal Cannula 2.00 02/02/18 08:21 57 171/95 02/02/18 08:13 54 180/111 02/02/18 08:09 54 21 186/84 (118) 99 Nasal Cannula 2.00 02/02/18 08:03 60 160/79 02/02/18 07:55 97.3 76 21 169/76 (107) 99 Nasal Cannula 2.00 160/79 (106) 02/02/18 07:53 76 21 169/76 (107) 100 Nasal Cannula 2.00 02/02/18 07:51 76 22 169/76 (107) 99 Nasal Cannula 2.00 02/02/18 07:51 76 24 99 Nasal Cannula 2.00 02/02/18 07:46 84 24 169/76 (107) Physical Exam seen post op- patient on vent SKIN: No rashes, Cool and dry. HEAD: Atraumatic. EYES: Pupils equal round and reactive. ET in place ENT: Nose without bleeding, NECK: No JVD or lymphadenopathy. Supple, nontender, no meningeal signs. CARDIOVASCULAR: Regular rate RESPIRATORY: Clear to auscultation. Breath sounds equal bilaterally. No wheezes , rales, or rhonchi. GASTROINTESTINAL: Abdomen soft,alas in place MUSCULOSKELETAL: Extremities without clubbing, cyanosis, or edema. NEUROLOGICAL: patient seen post op on vent Laboratory Laboratory Tests Test 02/02/18 07:50 02/02/18 10:43 White Blood Count 11.2 Red Blood Count 5.81 Hemoglobin 19.3 Hematocrit 54.2 Mean Corpuscular Volume 93.4 Mean Corpuscular Hemoglobin 33.2 Mean Corpuscular Hemoglobin Concent 35.5 Red Cell Distribution Width 13.5 Platelet Count 193 Mean Platelet Volume 9.0 Neutrophils (%) (Auto) 63.6 Lymphocytes (%) (Auto) 24.9 Monocytes (%) (Auto) 8.2 Eosinophils (%) (Auto) 2.3 Basophils (%) (Auto) 1.0 Neutrophils # (Auto) 7.1 Lymphocytes # (Auto) 2.8 Monocytes # (Auto) 0.9 Eosinophils # (Auto) 0.3 Basophils # (Auto) 0.1 CBC Comment DIFF FINAL Differential Comment Prothrombin Time 10.5 Prothromb Time International Ratio 1.0 Activated Partial Thromboplast Time 27.5 Blood Urea Nitrogen 17 Creatinine 0.98 Random Glucose 124 Total Protein 8.4 7.8 Albumin 3.8 3.6 Calcium Level 9.1 Magnesium Level 2.2 Alkaline Phosphatase 93 81 Aspartate Amino Transf (AST/SGOT) 20 23 Alanine Aminotransferase (ALT/SGPT) 41 39 Total Bilirubin 0.3 0.3 Sodium Level 139 Potassium Level 3.9 Chloride Level 104 Carbon Dioxide Level 23.8 Anion Gap 11 Estimat Glomerular Filtration Rate 80 Total Creatine Kinase 75 Troponin I LESS THAN 0.02 0.26 B-Type Natriuretic Peptide 37 Lipase 313 Direct Bilirubin 0.1 Indirect Bilirubin 0.2 Triglycerides Level 107 Cholesterol Level 183 LDL Cholesterol 125 HDL Cholesterol 36.3 Cholesterol/HDL Ratio 5.04 Result Diagram: 02/02/18 0750 02/02/18 0750 Imaging Last Impressions Chest X-Ray 02/02/18 0749 Signed Impressions: CONCLUSION: No acute abnormality or significant interval change. Caprini VTE Risk Assessment Caprini VTE Risk Assessment: Mod/High Risk (score >= 2) VTE Pharm Contraindication: possible procedure Caprini Risk Assessment Model Point Value = 1 Point Value = 2 Point Value = 3 Point Value = 5 Age 41-60 Minor surgery BMI > 25 kg/m2 Swollen legs Varicose veins or History of unexplained or recurrent spontaneous Oral contraceptives or hormone replacement Sepsis (< 1 month) Serious lung disease, including pneumonia (< 1 month) Abnormal pulmonary function Acute myocardial infarction Congestive heart failure (< 1 month) History of inflammatory bowel disease Medical patient at bed rest Age 61-74 Arthroscopic surgery Major open surgery (> 45 min) Laparoscopic surgery (> 45 min) Malignancy Confined to bed (> 72 hours) Immobilizing plaster cast Central venous access Age >= 75 History of VTE Family history of VTE Factor V Leiden Prothrombin [id number] Lupus anticoagulant Anticardiolipin antibodies Elevated serum homocysteine Heparin-induced thrombocytopenia Other congenital or acquired thrombophilia Stroke (< 1 month) Elective arthroplasty Hip, pelvis, or leg fracture Acute spinal cord injury (< 1 month) Prophylaxis Regimen Total Risk Factor Score Risk Level Prophylaxis Regimen 0-1 Low Early ambulation 2 Moderate Order ONE of the following: *Sequential Compression Device (SCD) *Heparin 5000 units SQ BID 3-4 Higher Order ONE of the following medications: *Heparin 5000 units SQ TID *Enoxaparin/Lovenox 40 mg SQ daily (WT < 150 kg, CrCl > 30 mL/min) *Enoxaparin/Lovenox 30 mg SQ daily (WT < 150 kg, CrCl > 10-29 mL/min) *Enoxaparin/Lovenox 30 mg SQ BID (WT < 150 kg, CrCl > 30 mL/min) AND/OR *Sequential Compression Device (SCD) 5 or more Highest Order ONE of the following medications: *Heparin 5000 units SQ TID (Preferred with Epidurals) *Enoxaparin/Lovenox 40 mg SQ daily (WT < 150 kg, CrCl > 30 mL/min) *Enoxaparin/Lovenox 30 mg SQ daily (WT < 150 kg, CrCl > 10-29 mL/min) *Enoxaparin/Lovenox 30 mg SQ BID (WT < 150 kg, CrCl > 30 mL/min) AND *Sequential Compression Device (SCD) Assessment and Plan Assessment and Plan 52-year-old male admitted with a ACS- non-ST elevation myocardial infarction, underwent emergent cardiac catheterization with left main disease Hyperlipidemia - LDL 125 - Cardiothoracic ff - coronary artery bypass x 2. - cardiology ff - continue cardiac meds - will start statins post op Erythrocytosis - non smoker, not dehydrated - get erythropoietin level -recheck CBC in am - consider Hematology consult post op Physician Certification 2 Midnight Certification Type: Admission for Inpatient Services Order for Inpatient Services The services are ordered in accordance with Medicare regulations or non- Medicare payer requirements, as applicable. In the case of services not specified as inpatient-only, they are appropriately provided as inpatient services in accordance with the 2-midnight benchmark. Estimated LOS (days): 3 days is the estimated time the patient will need to remain in the hospital, assuming treatment plan goals are met and no additional complications. Post-Hospital Plan: Not yet determined Lang Jarrett MD February 02, 2018 16:34
--- NOTE | 2018-02-02 17:00 | EKG ---
Date Performed: 02/02/2018 Time Performed: 07:44:09 PTAGE: 52 years EKG: Sinus rhythm ANTERIOR MYOCARDIAL INFARCTION ABNORMAL ECG INTERPRETATION BASED ON A DEFAULT AGE OF 40 YEARS PREVIOUS TRACING 02/18/2014 @ 22.50.34 Since the previous tracing, no significant change n oted DOCTOR: Andreea Perdue Interpretating Date/Time 02/02/2018 16:59:24
--- NOTE | 2018-02-02 17:00 | EKG ---
Date Performed: 02/02/2018 Time Performed: 08:05:50 PTAGE: 52 years EKG: SINUS BRADYCARDIA ANTEROSEPTAL MYOCARDIAL INFARCTION ABNORMAL ECG PREVIOUS TRACING : 02/02/2018 08.05 Since the previous tracing, no significant change noted DOCTOR: Andreea Perdue Interpretating Date/Time 02/02/2018 16:59:37
[2018-02-02] MEDS ORDERED: LACTATED RINGER'S 1000 ML INJ 500 ML IV PRN (17:39)
[2018-02-02] MEDS ORDERED: CLEVIDIPINE INJ 50 ML IV PRN (17:45)
[2018-02-02] MEDS ORDERED: DEXMEDETOMIDINE INJ 200 MCG in SODIUM CHLORIDE 0.9% INJ 50 ML IV PRN (17:45)
[2018-02-02] MEDS ORDERED: CALCIUM CHLORIDE INJ 1 GM in SODIUM CHLORIDE 0.9% INJ 100 ML IV PRN (17:45)
[2018-02-02] MEDS ORDERED: POTASSIUM CHLORIDE 20 MEQ CONTROLLED RELEASE TAB PO PRN ×2 (17:45)
[2018-02-02] MEDS ORDERED: ALBUMIN 5% INJ 250 ML IV PRN (17:45)
[2018-02-02] MEDS ORDERED: Post-op Orders (for Pharmacy) OTHER ONE (17:45)
[2018-02-02] MEDS ORDERED: RESP: RACEPINEPHRINE 2.25% 0.5 ML NEB NEB PRN (17:45)
[2018-02-02] MEDS ORDERED: hydrALAZINE HCL 20 MG/ML VIAL IV PUSH PRN (17:45)
[2018-02-02] MEDS ORDERED: RESP: ALBUTEROL 2.5 MG/IPRATROPIUM 0.5 MG NEB (PRN) NEB (17:45)
[2018-02-02] MEDS ORDERED: POTASSIUM CHLOR 20 MEQ PREMIX 100 ML IV PRN ×3 (17:45)
[2018-02-02] MEDS ORDERED: ACETAMINOPHEN 325 MG TAB PO PRN (17:45)
[2018-02-02] MEDS ORDERED: CALCIUM CHLORIDE 10% 1 GRAM/10 ML VIAL IV PUSH PRN (17:45)
[2018-02-02] MEDS ORDERED: MAGNESIUM SULFATE INJ 2 GM in SODIUM CHLORIDE 0.9% INJ 100 ML IV PRN ×4 (17:45)
[2018-02-02] MEDS ORDERED: METOPROLOL TARTRATE 5 MG/5 ML VIAL IV PUSH PRN (17:45)
[2018-02-02] MEDS ORDERED: SODIUM BICARBONATE 8.4% SOLN 50 MEQ/50 ML VIAL IV PUSH PRN ×2 (17:45)
[2018-02-02] MEDS ORDERED: ONDANSETRON ODT 4 MG TAB PO PRN (17:45)
[2018-02-02] MEDS ORDERED: ACETAMINOPHEN 650 MG SUPP RECTAL PRN (17:45)
--- NOTE | 2018-02-02 17:48 | PD.OP ---
cc: Davi Brown MD; Melba Sifuentes MD Operative Report Date of Surgery: February 02, 2018 Preoperative Diagnosis: (1) ST elevation myocardial infarction (STEMI) of anterior wall (2) Acute systolic CHF (congestive heart failure) (3) CAD (coronary artery disease) Postoperative Diagnosis: same Procedure: Emergency CABG x 2 MUIR to LAD - fair SVG to OM - good [place] Anesthesia: Dr. Ryan Surgeon: Melba Sifuentes Telephone Order Clerk(s): Leah Lama PAC Operation and Findings: The risks, benefits, complications, treatment options, and expected outcomes were discussed with the patient. The possibilities of reaction to medication, pulmonary aspiration, perforation of viscus, bleeding, recurrent infection, the need for additional procedures, failure to diagnose a condition, and creating a complication requiring transfusion or operation were discussed with the patient. The patient concurred with the proposed plan, giving informed consent. The site of surgery properly noted/marked. The patient was taken to Operating Room, identified as Marcus Lewis and the procedure verified as Emergency CABG, [place], [place]. A Time Out was held and the above information confirmed. Standard monitoring lines and Little catheter were placed. General anesthesia was induced. The patient was prepped and draped in a sterile fashion. A median sternotomy was performed and electrocautery was used to obtain hemostasis. The left internal mammary artery was procured as a pedicle from the 7th rib to the 1st rib in the usual manner. Simultaneously left greater saphenous vein was procured from the left leg using a minimally invasive endoscopic technique. The vein was prepared for anastomosis and the leg wound was irrigated and closed in 2 layers. The pericardium was opened and a pericardial sling was created using interrupted 0 silk sutures. The patient was heparinized for cardiopulmonary bypass and the distal mammary pedicle was instrumented for anastomosis. The heart was instrumented for cardiopulmonary bypass in the usual manner. Antegrade blood cardioplegia was employed. The patient was placed on cardiopulmonary bypass. An aortic cross-clamp was applied and the heart was arrested using cold blood cardioplegia. Antegrade cardioplegia was administered after he each anastomosis. After adequate arrest, the 1st circumflex marginal artery was then opened with a [place] blade and found to be a 1.5 millimeter good target. The OM1 artery was intramyocardial. Saphenous vein was approximated to the OM1 artery using a running 7 0 Prolene suture. The graft was measured for length and orientation and was suspended from the pericardium. The distal LAD was opened with a [place] blade and found to be a 1.5 millimeter diffusely diseased fair target. The left internal mammary artery was approximated to the LAD using a running 7 0 Prolene suture. The pedicle was attached to the epicardium using interrupted 5 0 silk suture. The patient was systemically rewarmed and received a hotshot dose of warm blood cardioplegia. The aorta was vented and the proximal anastomosis to the OM1 graft was accomplished using a running 5 0 Prolene suture after creating an aortotomy was a 5 millimeter punch. The cross -clamp was removed and all proximal and distal anastomoses were examined for hemostasis. The patient was weaned from cardiopulmonary bypass. Protamine was given. There was no adverse reaction. Decannulation was carried out without incident. Wound was checked for hemostasis which was obtained using electrocautery. A 36 Irish mediastinal and 32 Irish left pleural chest tubes were placed and secured to the skin with 0 silk suture. The sternum was closed with stainless steel wire. The fascia was closed with 1. PDS. The subcutaneous tissue was closed using a running 2-0 Vicryl suture. The skin was closed with 4- 0 Monocryl. Sterile dressings were placed. At the end of the operation, all sponge, instruments, and needle counts were correct. The patient was transferred to the CVICU in stable condition. Findings: Diffuse CAD XC: 37 min CPB: 47 min Drains: mediastinal x 1 pleural x 1 Complications: none Disposition: to CVICU in stable condition Melba Sifuentes MD February 02, 2018 17:48
[2018-02-02] MEDS ORDERED: GLUCAGON 1 MG/ML VIAL OTHER PRN (18:45)
[2018-02-02] MEDS ORDERED: fentaNYL CITRATE 250 MCG/5 ML AMP ONE (18:55)
[2018-02-02] MEDS: ACETAMINOPHEN 1000 MG/100 ML 100 ML IV SCH ×2 (19:11→23:38)
[2018-02-02] MEDS: KETOROLAC TROMETHAMINE 30 MG/ML (IVP) VIAL IV PUSH PRN (19:12)
--- NOTE | 2018-02-02 19:12 | RADRPT ---
EXAM DATE: 02/02/2018 7:04 PM EDT AGE/SEX: 52 years / Male INDICATIONS: Post CABG. CLINICAL DATA: This is the patient's initial encounter. Patient reports that signs and symptoms have been present for 1 day and indicates a pain score of Nonresponsive. MEDICAL/SURGICAL HISTORY: None. None. [place] [facility] [place]. . FINDINGS: The patient is status post sternotomy. ET tube, right internal jugular vein central line, left chest tube, and mediastinal drain are well placed. The heart size is normal. The lungs are gross ly clear. CONCLUSION: Status post coronary bypass surgery with the tubes and lines being in good position. Electronically signed by: Ezequiel Ramos MD 02/02/2018 7:11 PM EDT
[2018-02-02] MEDS: oxyCODONE/ACETAMINOPHEN 5 MG/325 MG TAB PO PRN ×2 (19:44→23:37)
[2018-02-02] MEDS: RESP: ALBUTEROL 2.5 MG/IPRATROPIUM 0.5 MG NEB (SCH) NEB (20:17)
[2018-02-02] MEDS ORDERED: SODIUM CHLORIDE 0.9% FLUSH 10 ML FLUSH IV FLUSH SCH ×2 (21:00)
[2018-02-02] MEDS: SODIUM CHLORIDE 0.9% FLUSH 10 ML FLUSH IV FLUSH SCH (21:00)
[2018-02-02] MEDS: AMIODARONE 200 MG TAB PO SCH (22:00)
--- NOTE | 2018-02-02 23:04 | RADRPT ---
EXAM DATE: 02/02/2018 10:58 PM EDT AGE/SEX: 52 years / Male INDICATIONS: Unstable angina. CLINICAL DATA: This is the patient's initial encounter. Patient reports that signs and symptoms have been present for 2 days and indicates a pain score of 4/10. MEDICAL/SURGICAL HISTORY: Gastroesophageal reflux disease. Arthritis. Myocardial infarction. A nticoagulant therapy. Tonsillectomy. Cardiac catheterization with stent placement. Left hip surgery. COMPARISON: . No external comparison. VELOCITY PARAMETERS: ICA/CCA Ratio: Right 0.4 , Left 1.3 ICA: Right 57 cm/sec, Left 111 cm/sec CCA: Right 137 cm/sec, Left 84 cm/sec ECA: Right 119 cm/sec, Left 137 cm/sec Vertebral: Right 64 cm/sec antegrade, Left UTO cm/sec absent FINDINGS: Right Carotid: No significant stenosis is visualized. The waveforms are within normal limits. Left Carotid: No significant stenosis is visualized. The waveforms are within normal limits. Other: The left vertebral artery was not identified. The right vertebral artery demonstrates normal antegrade flow. CONCLUSION: 1. No significant stenosis seen in the carotid systems. There is minimally elevated peak systolic ve locity at the right common carotid artery without a significant stenosis identified. 2. The left vertebral artery was not identified. There is normal antegrade flow in the right vertebr al artery. Electronically signed by: Ezequiel Ramos MD 02/02/2018 11:03 PM EDT
[2018-02-02] MEDS: ceFAZolin 2 GM PREMIX 50 ML IV SCH (23:37)
[2018-02-02] MEDS ORDERED: ONDANSETRON HCL 4 MG/2 ML VIAL ONE (23:40)
[2018-02-03] VITALS (18 sets, daily range): BP systolic 109–139; BP diastolic 49–75; PULSE 52–83; RESP 12–18; TEMP 97.7–98.1; O2SAT 90–97
[2018-02-03] MEDS: KETOROLAC TROMETHAMINE 30 MG/ML (IVP) VIAL IV PUSH PRN ×2 (02:48→20:08)
[2018-02-03] MEDS: oxyCODONE/ACETAMINOPHEN 5 MG/325 MG TAB PO PRN ×3 (03:53→16:19)
[2018-02-03] MEDS: RESP: ALBUTEROL 2.5 MG/IPRATROPIUM 0.5 MG NEB (SCH) NEB ×2 (04:30→12:21)
--- NOTE | 2018-02-03 04:40 | RADRPT ---
EXAM DATE: 02/03/2018 4:36 AM EDT AGE/SEX: 52 years / Male INDICATIONS: Short of breath. CLINICAL DATA: This is the patient's subsequent encounter. Patient reports that signs and symptoms h ave been present for 4 - 6 days and indicates a pain score of 0/10. MEDICAL/SURGICAL HISTORY: None. None. COMPARISON: [facility] – [place], CHEST SINGLE AP, 02/02/2018. . FINDINGS: A single AP portable semierect view of the chest was obtained and demonstrates interval extubation. T he left-sided chest tube remains in place with no pneumothorax. The right internal jugular central ve nous line remains in place. There are no confluent infiltrates or effusions. The heart size remains a t the upper limits of normal with no perihilar edema. The patient is status post median sternotomy. T he bony thorax is otherwise intact. CONCLUSION: 1. Left-sided chest tube with no pneumothorax. 2. Status post extubation. Electronically signed by: Yobany Becerra MD 02/03/2018 4:39 AM EDT
[2018-02-03 05:09] LABS: AUTOMATED NEUTROPHIL # 14.6 TH/MM3 (1.8-7.7); BASOPHIL % 0.1 % (0.0-2.0); HEMATOCRIT 48.4 % (39.0-51.0); HEMOGLOBIN 16.7 GM/DL (13.0-17.0); LYMPH % 4.7 % (9.0-44.0); LYMPHOCYTE # 0.8 TH/MM3 (1.0-4.8); MEAN CELL VOLUME 94.5 FL (80.0-100.0); MEAN CORPUSCULAR HEMOGLOBIN 32.6 PG (27.0-34.0); MEAN CORPUSCULAR HGB CONC 34.5 % (32.0-36.0); MEAN PLATELET VOLUME 8.8 FL (7.0-11.0); MONO % 5.3 % (0.0-8.0); MONOCYTE # 0.9 TH/MM3 (0-0.9); NEUT % 89.9 % (16.0-70.0); PLATELET COUNT 117 TH/MM3 (150-450); RED BLOOD COUNT 5.12 MIL/MM3 (4.50-5.90); RED CELL DISTRIBUTION WIDTH 13.5 % (11.6-17.2); WHITE BLOOD COUNT 16.2 TH/MM3 (4.0-11.0)
[2018-02-03 05:27] LABS: BACTERIA, URINE RARE /hpf; BILIRUBIN, URINE NEG (NEG); BLOOD, URINE SMALL (NEG); GLUCOSE,URINE NEG (NEG); HYALINE CAST, URINE 6 /lpf (RARE); KETONE, URINE NEG (NEG); MUCUS URINE FEW /lpf (OCC); NITRITE,URINE NEG (NEG); RENAL EPITHELIAL CELLS <1 /hpf; TRANSITIONAL EPI CELLS, URINE <1 /hpf; URINE COLOR YELLOW (YELLW/STRAW); URINE LEUKOCYTE ESTERASE MOD (NEG)
[2018-02-03 05:37] LABS: BICARBONATE 23.6 MEQ/L (21.0-32.0); CALCIUM 8.4 MG/DL (8.5-10.1); CREATININE 0.89 MG/DL (0.60-1.30); MAGNESIUM 2.2 MG/DL (1.5-2.5)
[2018-02-03] MEDS: ACETAMINOPHEN 1000 MG/100 ML 100 ML IV SCH ×2 (05:42→11:54)
[2018-02-03] MEDS: PANTOPRAZOLE SOD 40 MG DELAYED RELEASE TAB PO SCH (06:00)
[2018-02-03] MEDS: AMIODARONE 200 MG TAB PO SCH ×3 (06:00→20:11)
[2018-02-03] MEDS: ceFAZolin 2 GM PREMIX 50 ML IV SCH ×3 (06:20→23:09)
[2018-02-03] MEDS ORDERED: ATORVASTATIN 40 MG TAB PO ONE (06:45)
[2018-02-03] MEDS ORDERED: GLUCAGON 1 MG/ML VIAL OTHER PRN (08:30)
[2018-02-03] MEDS ORDERED: BISACODYL 10 MG SUPP RECTAL PRN (08:30)
[2018-02-03] MEDS ORDERED: DEXTROSE 50% IN WATER 50 ML VIAL(D50) IV PUSH PRN (08:30)
[2018-02-03] MEDS: MAGNESIUM HYDROXIDE SUSP 30 ML CUP PO SCH (09:00)
[2018-02-03] MEDS: SODIUM CHLORIDE 0.9% FLUSH 10 ML FLUSH IV FLUSH SCH ×2 (09:00→20:12)
[2018-02-03] MEDS ORDERED: ATORVASTATIN 40 MG TAB PO SCH (09:00)
[2018-02-03] MEDS: ASPIRIN 81 MG CHEW TAB PO SCH (09:00)
[2018-02-03] MEDS: CHLORHEXIDINE GLUCONATE 0.12% 15 ML CUP SWISH-SPIT SCH ×2 (09:01→20:13)
[2018-02-03] MEDS: METOPROLOL TARTRATE 25 MG TAB PO SCH ×2 (09:01→20:09)
[2018-02-03] MEDS: MULTIVITAMINS/MINERALS THERAPEUTIC TAB PO SCH (09:01)
[2018-02-03] MEDS: INSULIN ASPART SUPPLEMENTAL SCALE SQ SCH ×4 (09:24→22:00)
[2018-02-03] MEDS ORDERED: FUROSEMIDE 40 MG/4 ML VIAL IV PUSH ONE (11:00)
[2018-02-03] MEDS ORDERED: POTASSIUM CHLORIDE 8 MEQ CONTROLLED RELEASE TAB PO ONE (11:00)
--- NOTE | 2018-02-03 11:04 | PD.CAR.PN ---
CVT Progress Note Subjective/Hospital Course: A 52-year-old male with history of coronary artery disease with prior PCI 10 years ago for the first and then in October of 2013. He has 2 stents into the LAD. He presented to the emergency room with chest pain 10/10 morning of 02/02 , felt like it was the same kind of pain that he had with his previous SC. His pain was relieved with aspirin, nitro and heparin drip. Troponin peaked at 0.26. He was taken to the cleaner laboratory equipment by Dr. Brown with risk factors including age, prior SC, tobacco abuse. Catheterization showed ejection fraction of 55%, left main disease 95%, proximal LAD 95%. The circumflex was 90%. We were called immediately to take the patient to the operating room after discussing and interviewing the patient in the cleaner laboratory equipment. PAST MEDICAL HISTORY: Includes anxiety, depression, prior SC in 2005 and 2013, esophagitis, tonsillectomy. preop dx (1) ST elevation myocardial infarction (STEMI) of anterior wall (2) Acute systolic CHF (congestive heart failure) (3) CAD (coronary artery disease) surgery 02/02 Emergency CABG x 2 MUIR to LAD - fair SVG to OM - good L EVH pt extubated after surgery crystalloid 3200cc, 1000cc cell saver, 2000cc EBL 02/03 remains on 5 liter 02 gentle diuresis will need social service consult and PCP for followup pain controlled transfer to stepdown unit Objective: GENERAL: A&O x 3 SKIN: Warm and dry. prevena dressing to chest , latasha wrap to left leg HEAD: Normocephalic. EYES: No scleral icterus. No injection or drainage. NECK: Supple, trachea midline. No JVD or lymphadenopathy. CARDIOVASCULAR: Regular rate and rhythm without murmurs, gallops, or rubs. RESPIRATORY: Breath sounds equal bilaterally. No accessory muscle use. few coarse breaths sounds , chest tube drained 160cc/ 12 hrs , no air leak GASTROINTESTINAL: Abdomen soft, non-tender, nondistended. MUSCULOSKELETAL: No cyanosis, or edema. BACK: Nontender without obvious deformity. No CVA tenderness. Vital Signs Date Time Temp Pulse Resp B/P (MAP) Pulse Ox O2 Delivery O2 Flow Rate FiO2 02/03/18 07:00 74 02/03/18 07:00 98.0 65 16 121/75 (90) 93 118/59 (78) 02/03/18 07:00 93 Nasal Cannula 5.00 02/03/18 03:00 97.8 58 12 126/73 (90) 94 109/49 (69) 02/03/18 03:00 58 02/02/18 23:20 97 Nasal Cannula 6.00 02/02/18 23:00 69 02/02/18 23:00 97.5 71 16 114/75 (88) 93 111/57 (75) 02/02/18 23:00 96 Nasal Cannula 6.00 02/02/18 21:00 95 Partial Non-Rebreather 02/02/18 20:25 93 Partial Rebreather 12.00 02/02/18 20:10 95 Nasal Cannula 5 02/02/18 20:10 95 Nasal Cannula 5.00 02/02/18 20:05 93 Nasal Cannula 5.00 02/02/18 19:00 97.5 47 11 125/60 (81) 97 125/58 (80) 02/02/18 19:00 55 02/02/18 18:55 93 60 02/02/18 18:41 95 55 02/02/18 18:40 49 02/02/18 18:40 55 02/02/18 13:45 98.1 56 16 125/81 (96) 93 122/64 (83) 02/02/18 13:00 60 02/02/18 11:31 47 15 113/58 (76) 96 Nasal Cannula 2.00 02/02/18 11:30 47 15 113/58 (76) 96 Nasal Cannula 2.00 Labs: Laboratory Tests Test 02/03/18 04:30 White Blood Count 16.2 TH/MM3 (4.0-11.0) Red Blood Count 5.12 MIL/MM3 (4.50-5.90) Hemoglobin 16.7 GM/DL (13.0-17.0) Hematocrit 48.4 % (39.0-51.0) Mean Corpuscular Volume 94.5 FL (80.0-100.0) Mean Corpuscular Hemoglobin 32.6 PG (27.0-34.0) Mean Corpuscular Hemoglobin Concent 34.5 % (32.0-36.0) Red Cell Distribution Width 13.5 % (11.6-17.2) Platelet Count 117 TH/MM3 (150-450) Mean Platelet Volume 8.8 FL (7.0-11.0) Neutrophils (%) (Auto) 89.9 % (16.0-70.0) Lymphocytes (%) (Auto) 4.7 % (9.0-44.0) Monocytes (%) (Auto) 5.3 % (0.0-8.0) Eosinophils (%) (Auto) 0.0 % (0.0-4.0) Basophils (%) (Auto) 0.1 % (0.0-2.0) Neutrophils # (Auto) 14.6 TH/MM3 (1.8-7.7) Lymphocytes # (Auto) 0.8 TH/MM3 (1.0-4.8) Monocytes # (Auto) 0.9 TH/MM3 (0-0.9) Eosinophils # (Auto) 0.0 TH/MM3 (0-0.4) Basophils # (Auto) 0.0 TH/MM3 (0-0.2) CBC Comment DIFF FINAL Differential Comment Urine Color YELLOW (YELLW/STRAW) Urine Turbidity CLEAR (CLEAR) Urine pH 6.0 (5.0-8.5) Urine Specific [place] 1.033 (1.002-1.035) Urine Protein TRACE mg/dL (NEG-TRACE) Urine Glucose (UA) NEG mg/dL (NEG) Urine Ketones NEG mg/dL (NEG) Urine Occult Blood SMALL (NEG) Urine Nitrite NEG (NEG) Urine Bilirubin NEG (NEG) Urine Urobilinogen LESS THAN 2.0 MG/DL (LESS Urine Leukocyte Esterase MOD (NEG) Urine RBC 6 /hpf (0-3) Urine WBC 41 /hpf (0-5) Urine Transitional Epithelial Cells <1 /hpf (NONE) Urine Renal Epithelial Cells <1 /hpf (NONE) Urine Bacteria RARE /hpf (NONE) Urine Hyaline Casts 6 /lpf (RARE) Urine Mucus FEW /lpf (OCC) Microscopic Urinalysis Comment CULTURE INDICATED Nasal Screen MRSA (PCR) MRSA NOT DETECTED (NOT Blood Urea Nitrogen 14 MG/DL (7-18) Creatinine 0.89 MG/DL (0.60-1.30) Random Glucose 117 MG/DL (74-106) Calcium Level 8.4 MG/DL (8.5-10.1) Magnesium Level 2.2 MG/DL (1.5-2.5) Sodium Level 139 MEQ/L (136-145) Potassium Level 4.6 MEQ/L (3.5-5.1) Chloride Level 104 MEQ/L (98-107) Carbon Dioxide Level 23.6 MEQ/L (21.0-32.0) Anion Gap 11 MEQ/L (5-15) Estimat Glomerular Filtration Rate 89 ML/MIN (>89) Result Diagram: 02/03/1842902/03/18429 Telemetry: NSR no acute changes (1) S/P CABG (coronary artery bypass graft) Plan: statin BB, ASA, amiodarone gentle diuresis OOB pulm toileting nebs ezpap acapella will need social service consult f/u UA (2) Chest pain (3) Bronchitis (4) CAD (coronary artery disease) (5) ST elevation myocardial infarction (STEMI) of anterior wall (6) Acute systolic CHF (congestive heart failure) Parisa Higgins February 03, 2018 11:04
--- NOTE | 2018-02-03 12:05 | HHI.PR ---
Subjective Remarks awake and alert, sore chest tube side telemetry - sinus Objective Vitals Vital Signs Date Time Temp Pulse Resp B/P (MAP) Pulse Ox O2 Delivery O2 Flow Rate FiO2 02/03/18 11:01 97.8 60 18 114/61 (78) 96 Arterial Line 02/03/18 07:00 74 02/03/18 07:00 98.0 65 16 121/75 (90) 93 118/59 (78) 02/03/18 07:00 93 Nasal Cannula 5.00 02/03/18 03:00 97.8 58 12 126/73 (90) 94 109/49 (69) 02/03/18 03:00 58 02/02/18 23:20 97 Nasal Cannula 6.00 02/02/18 23:00 69 02/02/18 23:00 97.5 71 16 114/75 (88) 93 111/57 (75) 02/02/18 23:00 96 Nasal Cannula 6.00 02/02/18 21:00 95 Partial Non-Rebreather 02/02/18 20:25 93 Partial Rebreather 12.00 02/02/18 20:10 95 Nasal Cannula 5 02/02/18 20:10 95 Nasal Cannula 5.00 02/02/18 20:05 93 Nasal Cannula 5.00 02/02/18 19:00 97.5 47 11 125/60 (81) 97 125/58 (80) 02/02/18 19:00 55 02/02/18 18:55 93 60 02/02/18 18:41 95 55 02/02/18 18:40 49 02/02/18 18:40 55 02/02/18 13:45 98.1 56 16 125/81 (96) 93 122/64 (83) 02/02/18 13:00 60 I/O 02/02/18 02/02/18 02/02/18 02/03/18 02/03/18 02/03/18 07:00 15:00 23:00 07:00 15:00 23:00 Intake Total 4510 ml 870 ml 240 ml Output Total 2825 ml 1430 ml 275 ml Balance 1685 ml -560 ml -35 ml Intake Oral 720 ml 240 ml IV Total 310 ml 150 ml Autotransfusion 1000 ml Other 3200 ml Output Urine Total 825 ml 1270 ml 225 ml Chest Tube Drainage Total 160 ml 50 ml Estimated Blood Loss 2000 ml # Bowel Movements 0 0 Result Diagram: 02/03/18 0430 02/03/18 0430 Imaging Last Impressions Chest X-Ray 02/03/18 0500 Signed Impressions: CONCLUSION: Carotid Artery Ultrasound 02/02/18 0000 Signed Impressions: CONCLUSION: Objective Remarks awake and alert, clear speech, 0n 02 NC anicteric chest tube in place regularr hythm no rales abdiomen - soft, alas in place extremities no edema, good epripheral pulses Procedures 02/02 Emergency CABG x 2 MUIR to LAD - fair SVG to OM - good [facility] [place] A/P Assessment and Plan 52-year-old male admitted with a ACS- non-ST elevation myocardial infarction S/P CABG 02/02 Hyperlipidemia - LDL 125 - cardiology ff - on-ASA/BB/Amiodarone - statins Erythrocytosis - Hgb 19 on admission- down 16- post op . continue to ff - non smoker, not dehydrated - erythropoietin level pending - Monitor CBC as OP - if persists- consider Hematology consult as OP PT daily Lang Jarrett MD February 03, 2018 12:05
--- NOTE | 2018-02-03 14:38 | EKG ---
Date Performed: 02/03/2018 Time Performed: 02:41:00 PTAGE: 52 years EKG: Sinus bradycardia with sinus arrhythmia Low QRS voltages in precordial leads Borderline ECG Compared to prior electrocardiogram, Anteroseptal infarct pattern is no longer present. This could b e due to changes in lead placement and clinical correlation suggested. PREVIOUS TRACING : 02/02/2018 08.05 DOCTOR: Hernando Lorenzo Interpretating Date/Time 02/03/2018 14:38:04
--- NOTE | 2018-02-03 15:05 | PD.CARD.PN ---
Subjective Subjective Remarks alert in nad Objective Medications Current Medications Medications (Trade) Dose Ordered Sig/Chayo Route Start Time Stop Time Status Last Admin (Pill Splitter) 1 ea UNSCH PRN OTHER 02/02/18 13:45 (Peridex 0.12% Liq) 15 ml BID SWISH-SPIT 02/03/18 09:00 02/03/18 09:01 (NS Flush) 2 ml BID IV FLUSH 02/02/18 21:00 (NS Flush) 2 ml UNSCH PRN IV FLUSH 02/02/18 17:45 (Aspirin Chew) 81 mg DAILY PO 02/03/18 09:00 02/03/18 09:00 (Protonix) 40 mg DAILY@06 PO 02/03/18 06:00 02/03/18 06:00 (Cordarone) 400 mg Q8HR PO 02/02/18 22:00 (Tylenol) 650 mg Q4H PRN PO 02/02/18 17:45 (Percocet 5-325 Mg) 1 tab Q3H PRN PO 02/02/18 17:45 02/03/18 03:53 (Toradol Inj) 15 mg Q6H PRN IV PUSH 02/02/18 17:45 02/04/18 17:44 02/03/18 02:48 (Zofran Odt) 4 mg Q6H PRN PO 02/02/18 17:45 (Apresoline Inj) 10 mg Q4H PRN IV PUSH 02/02/18 17:45 Cefazolin Sodium/ Dextrose 50 ml @ 100 mls/hr Q8H IV 02/02/18 23:00 02/04/18 07:29 02/03/18 06:20 (Duoneb Neb) 1 ampule Q2HR NEB PRN NEB 02/02/18 17:45 (Lipitor) 40 mg HS PO 02/03/18 21:00 (Percocet 5-325 Mg) 2 tab Q4H PRN PO 02/03/18 08:30 02/03/18 09:04 (Duoneb Neb) 1 ampule Q6HR WHILE AWAKE NEB NEB 02/03/18 14:00 02/05/18 13:59 02/03/18 12:21 (Colace) 100 mg BID PO 02/03/18 21:00 (Theragran M Tab) 1 tab DAILY PO 02/03/18 09:00 02/03/18 09:01 (Milk Of Magnesia Liq) 30 ml DAILY PO 02/03/18 09:00 02/03/18 09:00 (Dulcolax Supp) 10 mg UNSCH PRN RECTAL 02/03/18 08:30 (Miralax) 17 gm DAILY PO 02/04/18 09:00 (Senokot) 8.6 mg HS PO 02/03/18 21:00 (Fleets Enema (Adult)) 118 ml UNSCH PRN RECTAL 02/04/18 09:00 (Lopressor) 12.5 mg BID PO 02/03/18 09:00 02/03/18 09:01 (NovoLOG SUPPLEMENTAL SCALE) 1 02,06,10,14,18,22 SQ 02/03/18 10:00 02/04/18 09:59 (D50w (Vial) Inj) 50 ml UNSCH PRN IV PUSH 02/03/18 08:30 (Glucagon Inj) 1 mg UNSCH PRN OTHER 02/03/18 08:30 (NovoLOG SUPPLEMENTAL SCALE) 1 ACHS SQ 02/04/18 12:00 Vital Signs / I&O Vital Signs Date Time Temp Pulse Resp B/P (MAP) Pulse Ox O2 Delivery O2 Flow Rate FiO2 02/03/18 12:01 82 02/03/18 11:01 97.8 60 18 114/61 (78) 96 Arterial Line 02/03/18 11:01 62 02/03/18 10:01 83 02/03/18 10:01 97.7 83 18 122/68 (86) 95 Arterial Line 02/03/18 07:00 74 02/03/18 07:00 98.0 65 16 121/75 (90) 93 118/59 (78) 02/03/18 07:00 93 Nasal Cannula 5.00 02/03/18 03:00 97.8 58 12 126/73 (90) 94 109/49 (69) 02/03/18 03:00 58 02/02/18 23:20 97 Nasal Cannula 6.00 02/02/18 23:00 69 02/02/18 23:00 97.5 71 16 114/75 (88) 93 111/57 (75) 02/02/18 23:00 96 Nasal Cannula 6.00 02/02/18 21:00 95 Partial Non-Rebreather 02/02/18 20:25 93 Partial Rebreather 12.00 02/02/18 20:10 95 Nasal Cannula 5 02/02/18 20:10 95 Nasal Cannula 5.00 02/02/18 20:05 93 Nasal Cannula 5.00 02/02/18 19:00 97.5 47 11 125/60 (81) 97 125/58 (80) 02/02/18 19:00 55 02/02/18 18:55 93 60 02/02/18 18:41 95 55 02/02/18 18:40 49 02/02/18 18:40 55 I/O 02/02/18 02/02/18 02/02/18 02/03/18 02/03/18 02/03/18 07:00 15:00 23:00 07:00 15:00 23:00 Intake Total 4510 ml 870 ml 240 ml Output Total 2825 ml 1430 ml 275 ml Balance 1685 ml -560 ml -35 ml Intake Oral 720 ml 240 ml IV Total 310 ml 150 ml Autotransfusion 1000 ml Other 3200 ml Output Urine Total 825 ml 1270 ml 225 ml Chest Tube Drainage Total 160 ml 50 ml Estimated Blood Loss 2000 ml # Bowel Movements 0 0 Laboratory Laboratory Tests Test 02/02/18 21:15 02/03/18 04:30 White Blood Count 16.2 TH/MM3 Red Blood Count 5.12 MIL/MM3 Hemoglobin 16.7 GM/DL Hematocrit 48.4 % Mean Corpuscular Volume 94.5 FL Mean Corpuscular Hemoglobin 32.6 PG Mean Corpuscular Hemoglobin Concent 34.5 % Red Cell Distribution Width 13.5 % Platelet Count 117 TH/MM3 Mean Platelet Volume 8.8 FL Neutrophils (%) (Auto) 89.9 % Lymphocytes (%) (Auto) 4.7 % Monocytes (%) (Auto) 5.3 % Eosinophils (%) (Auto) 0.0 % Basophils (%) (Auto) 0.1 % Neutrophils # (Auto) 14.6 TH/MM3 Lymphocytes # (Auto) 0.8 TH/MM3 Monocytes # (Auto) 0.9 TH/MM3 Eosinophils # (Auto) 0.0 TH/MM3 Basophils # (Auto) 0.0 TH/MM3 CBC Comment DIFF FINAL Differential Comment Urine Color YELLOW Urine Turbidity CLEAR Urine pH 6.0 Urine Specific [place] 1.033 Urine Protein TRACE mg/dL Urine Glucose (UA) NEG mg/dL Urine Ketones NEG mg/dL Urine Occult Blood SMALL Urine Nitrite NEG Urine Bilirubin NEG Urine Urobilinogen LESS THAN 2.0 MG/DL Urine Leukocyte Esterase MOD Urine RBC 6 /hpf Urine WBC 41 /hpf Urine Transitional Epithelial Cells <1 /hpf Urine Renal Epithelial Cells <1 /hpf Urine Bacteria RARE /hpf Urine Hyaline Casts 6 /lpf Urine Mucus FEW /lpf Microscopic Urinalysis Comment CULTURE INDICATED Nasal Screen MRSA (PCR) MRSA NOT DETECTED Blood Urea Nitrogen 14 MG/DL Creatinine 0.89 MG/DL Random Glucose 117 MG/DL Calcium Level 8.4 MG/DL Magnesium Level 2.2 MG/DL Sodium Level 139 MEQ/L Potassium Level 4.6 MEQ/L Chloride Level 104 MEQ/L Carbon Dioxide Level 23.6 MEQ/L Anion Gap 11 MEQ/L Estimat Glomerular Filtration Rate 89 ML/MIN Imaging Last 24 hours Impressions Chest X-Ray 02/03/18 0500 Signed Impressions: CONCLUSION: Assessment and Plan Problem List: (1) S/P CABG (coronary artery bypass graft) ICD Codes: Z95.1 - Presence of aortocoronary bypass graft (2) Chest pain ICD Codes: R07.9 - Chest pain Status: Acute (3) Bronchitis ICD Codes: J40 - Bronchitis Status: Acute (4) CAD (coronary artery disease) ICD Codes: I25.10 - CAD (coronary artery disease) Status: Acute (5) ST elevation myocardial infarction (STEMI) of anterior wall ICD Codes: I21.09 - ST elevation myocardial infarction (STEMI) of anterior wall Status: Acute (6) Acute systolic CHF (congestive heart failure) ICD Codes: I50.21 - Acute systolic CHF (congestive heart failure) Status: Acute (7) Tobacco abuse ICD Codes: Z72.0 - Tobacco use (8) NSTEMI (non-ST elevated myocardial infarction) ICD Codes: I21.4 - Non-ST elevation (NSTEMI) myocardial infarction Assessment and Plan 1.) NSTEMI - pod#1 cabg, doing well, continue aspirin, add lipitor 40 mg hs Davi Brown MD February 03, 2018 15:05
[2018-02-03] MEDS: DOCUSATE SODIUM 100 MG CAP PO SCH (20:11)
[2018-02-03] MEDS: ATORVASTATIN 40 MG TAB PO SCH (20:11)
[2018-02-03] MEDS: SENNOSIDES 8.6 MG TAB PO SCH (20:12)
[2018-02-03] MEDS ORDERED: CYCLOBENZAPRINE HCL 10 MG TAB PO ONE (22:00)
[2018-02-04] VITALS (28 sets, daily range): BP systolic 119–141; BP diastolic 59–76; PULSE 46–80; RESP 16–18; TEMP 97.7–98.2; O2SAT 89–97
[2018-02-04] MEDS: INSULIN ASPART SUPPLEMENTAL SCALE SQ SCH ×5 (02:00→21:00)
[2018-02-04] MEDS: KETOROLAC TROMETHAMINE 30 MG/ML (IVP) VIAL IV PUSH PRN (04:49)
[2018-02-04] MEDS: PANTOPRAZOLE SOD 40 MG DELAYED RELEASE TAB PO SCH (04:50)
[2018-02-04] MEDS: oxyCODONE/ACETAMINOPHEN 5 MG/325 MG TAB PO PRN ×3 (04:50→20:13)
[2018-02-04] MEDS: AMIODARONE 200 MG TAB PO SCH ×3 (04:50→20:13)
[2018-02-04 05:04] LABS: AUTOMATED NEUTROPHIL # 9.5 TH/MM3 (1.8-7.7); BASOPHIL # 0.1 TH/MM3 (0-0.2); BASOPHIL % 0.8 % (0.0-2.0); EOSINOPHIL % 0.4 % (0.0-4.0); HEMATOCRIT 42.7 % (39.0-51.0); HEMOGLOBIN 14.8 GM/DL (13.0-17.0); LYMPH % 12.5 % (9.0-44.0); LYMPHOCYTE # 1.5 TH/MM3 (1.0-4.8); MEAN CELL VOLUME 93.8 FL (80.0-100.0); MEAN CORPUSCULAR HEMOGLOBIN 32.6 PG (27.0-34.0); MEAN CORPUSCULAR HGB CONC 34.7 % (32.0-36.0); MEAN PLATELET VOLUME 8.9 FL (7.0-11.0); MONO % 6.2 % (0.0-8.0); MONOCYTE # 0.7 TH/MM3 (0-0.9); NEUT % 80.1 % (16.0-70.0); PLATELET COUNT 99 TH/MM3 (150-450); RED BLOOD COUNT 4.55 MIL/MM3 (4.50-5.90); RED CELL DISTRIBUTION WIDTH 13.6 % (11.6-17.2); WHITE BLOOD COUNT 11.9 TH/MM3 (4.0-11.0)
[2018-02-04 08:04] LABS: BICARBONATE 33.2 MEQ/L (21.0-32.0); CALCIUM 8.3 MG/DL (8.5-10.1); CREATININE 0.87 MG/DL (0.60-1.30); MAGNESIUM 2.3 MG/DL (1.5-2.5)
[2018-02-04] MEDS: MULTIVITAMINS/MINERALS THERAPEUTIC TAB PO SCH (08:29)
[2018-02-04] MEDS: ASPIRIN 81 MG CHEW TAB PO SCH (08:29)
[2018-02-04] MEDS: SODIUM CHLORIDE 0.9% FLUSH 10 ML FLUSH IV FLUSH SCH ×2 (08:30→20:15)
[2018-02-04] MEDS: ceFAZolin 2 GM PREMIX 50 ML IV SCH (08:30)
[2018-02-04] MEDS: METOPROLOL TARTRATE 25 MG TAB PO SCH ×2 (08:30→20:14)
[2018-02-04] MEDS: CHLORHEXIDINE GLUCONATE 0.12% 15 ML CUP SWISH-SPIT SCH ×2 (08:31→20:13)
[2018-02-04] MEDS: DOCUSATE SODIUM 100 MG CAP PO SCH ×2 (08:31→20:14)
[2018-02-04] MEDS: POLYETHYLENE GLYCOL 17 GM PKG PO SCH (08:31)
[2018-02-04] MEDS: MAGNESIUM HYDROXIDE SUSP 30 ML CUP PO SCH (08:31)
[2018-02-04] MEDS: RESP: ALBUTEROL 2.5 MG/IPRATROPIUM 0.5 MG NEB (SCH) NEB ×3 (08:44→20:22)
[2018-02-04] MEDS ORDERED: SOD PHOSPHATE/SOD BIPHOSPHATE (ADULT) ENEMA 133ML RECTAL PRN (09:00)
--- NOTE | 2018-02-04 10:36 | PD.CAR.PN ---
CVT Progress Note Subjective/Hospital Course: A 52-year-old male with history of coronary artery disease with prior PCI 10 years ago for the first and then in October of 2013. He has 2 stents into the LAD. He presented to the emergency room with chest pain 10/10 morning of 02/02 , felt like it was the same kind of pain that he had with his previous SC. His pain was relieved with aspirin, nitro and heparin drip. Troponin peaked at 0.26. He was taken to the laboratory technologist by Dr. Brown with risk factors including age, prior SC, tobacco abuse. Catheterization showed ejection fraction of 55%, left main disease 95%, proximal LAD 95%. The circumflex was 90%. We were called immediately to take the patient to the operating room after discussing and interviewing the patient in the laboratory technologist. PAST MEDICAL HISTORY: Includes anxiety, depression, prior SC in 2005 and 2013, esophagitis, tonsillectomy. preop dx (1) ST elevation myocardial infarction (STEMI) of anterior wall (2) Acute systolic CHF (congestive heart failure) (3) CAD (coronary artery disease) surgery 02/02 Emergency CABG x 2 MUIR to LAD - fair SVG to OM - good L [facility] pt extubated after surgery crystalloid 3200cc, 1000cc cell saver, 2000cc EBL 02/03 remains on 5 liter 02 gentle diuresis will need social service consult and PCP for followup pain controlled transfer to stepdown unit 02/04 chest tube removed without difficulty on BB ASA, statin - balance / wean 02 as tolerated Objective: Vital Signs Date Time Temp Pulse Resp B/P (MAP) Pulse Ox O2 Delivery O2 Flow Rate FiO2 02/04/18 08:38 95 Nasal Cannula 3.00 02/04/18 08:15 98.1 60 18 119/63 (81) 90 02/04/18 08:15 90 Nasal Cannula 4.00 02/04/18 07:01 61 02/04/18 06:00 56 02/04/18 05:00 66 02/04/18 04:00 98.2 65 16 140/67 (91) 97 02/04/18 04:00 56 02/04/18 03:00 61 02/04/18 02:00 50 02/04/18 01:00 50 02/04/18 00:00 54 02/03/18 23:34 97.8 54 14 129/57 (81) 97 5/23/18 23:00 55 02/03/18 22:00 58 02/03/18 21:00 52 02/03/18 20:00 97.8 69 14 139/74 (95) 90 02/03/18 20:00 74 02/03/18 20:00 96 Nasal Cannula 4.00 02/03/18 19:00 76 02/03/18 18:01 65 02/03/18 17:01 62 02/03/18 16:04 63 02/03/18 15:01 98.1 74 18 120/59 (79) 96 02/03/18 15:00 60 02/03/18 14:00 60 02/03/18 13:00 64 02/03/18 12:01 82 02/03/18 11:01 97.8 60 18 114/61 (78) 96 Arterial Line 02/03/18 11:01 62 Labs: Laboratory Tests Test 02/04/18 04:30 02/04/18 07:12 White Blood Count 11.9 TH/MM3 (4.0-11.0) Red Blood Count 4.55 MIL/MM3 (4.50-5.90) Hemoglobin 14.8 GM/DL (13.0-17.0) Hematocrit 42.7 % (39.0-51.0) Mean Corpuscular Volume 93.8 FL (80.0-100.0) Mean Corpuscular Hemoglobin 32.6 PG (27.0-34.0) Mean Corpuscular Hemoglobin Concent 34.7 % (32.0-36.0) Red Cell Distribution Width 13.6 % (11.6-17.2) Platelet Count 99 TH/MM3 (150-450) Mean Platelet Volume 8.9 FL (7.0-11.0) Neutrophils (%) (Auto) 80.1 % (16.0-70.0) Lymphocytes (%) (Auto) 12.5 % (9.0-44.0) Monocytes (%) (Auto) 6.2 % (0.0-8.0) Eosinophils (%) (Auto) 0.4 % (0.0-4.0) Basophils (%) (Auto) 0.8 % (0.0-2.0) Neutrophils # (Auto) 9.5 TH/MM3 (1.8-7.7) Lymphocytes # (Auto) 1.5 TH/MM3 (1.0-4.8) Monocytes # (Auto) 0.7 TH/MM3 (0-0.9) Eosinophils # (Auto) 0.0 TH/MM3 (0-0.4) Basophils # (Auto) 0.1 TH/MM3 (0-0.2) CBC Comment AUTO DIFF Differential Comment AUTO DIFF CONFIRMED Blood Urea Nitrogen 16 MG/DL (7-18) Creatinine 0.87 MG/DL (0.60-1.30) Random Glucose 109 MG/DL (74-106) Calcium Level 8.3 MG/DL (8.5-10.1) Magnesium Level 2.3 MG/DL (1.5-2.5) Sodium Level 139 MEQ/L (136-145) Potassium Level 4.7 MEQ/L (3.5-5.1) Chloride Level 101 MEQ/L (98-107) Carbon Dioxide Level 33.2 MEQ/L (21.0-32.0) Anion Gap 5 MEQ/L (5-15) Estimat Glomerular Filtration Rate 92 ML/MIN (>89) Result Diagram: 02/04/18 0430 02/04/18 0712 (1) S/P CABG (coronary artery bypass graft) Plan: ASA, stain BB OOB ambulate pulm toileting CM to eval for [facility] chest tubes dc without difficulty (2) Chest pain (3) Bronchitis (4) CAD (coronary artery disease) (5) ST elevation myocardial infarction (STEMI) of anterior wall (6) Acute systolic CHF (congestive heart failure) (7) Tobacco abuse Plan: smoking cessation (8) NSTEMI (non-ST elevated myocardial infarction) Parisa Higgins February 04, 2018 10:36
--- NOTE | 2018-02-04 10:57 | HHI.PR ---
Subjective Remarks telemetry sinus up in chair already had breakfast, no N/V Objective Vitals Vital Signs Date Time Temp Pulse Resp B/P (MAP) Pulse Ox O2 Delivery O2 Flow Rate FiO2 02/04/18 08:38 95 Nasal Cannula 3.00 02/04/18 08:15 98.1 60 18 119/63 (81) 90 02/04/18 08:15 90 Nasal Cannula 4.00 02/04/18 07:01 61 02/04/18 06:00 56 02/04/18 05:00 66 02/04/18 04:00 98.2 65 16 140/67 (91) 97 02/04/18 04:00 56 02/04/18 03:00 61 02/04/18 02:00 50 02/04/18 01:00 50 02/04/18 00:00 54 02/03/18 23:34 97.8 54 14 129/57 (81) 97 02/03/18 23:00 55 02/03/18 22:00 58 02/03/18 21:00 52 02/03/18 20:00 97.8 69 14 139/74 (95) 90 02/03/18 20:00 74 02/03/18 20:00 96 Nasal Cannula 4.00 02/03/18 19:00 76 02/03/18 18:01 65 02/03/18 17:01 62 02/03/18 16:04 63 02/03/18 15:01 98.1 74 18 120/59 (79) 96 02/03/18 15:00 60 02/03/18 14:00 60 02/03/18 13:00 64 02/03/18 12:01 82 02/03/18 11:01 97.8 60 18 114/61 (78) 96 Arterial Line 02/03/18 11:01 62 I/O 02/03/18 02/03/18 02/03/18 02/04/18 02/04/18 02/04/18 07:00 15:00 23:00 07:00 15:00 23:00 Intake Total 870 ml 340 ml 480 ml 530 ml Output Total 1430 ml 275 ml 1295 ml 1625 ml Balance -560 ml 65 ml -815 ml -1095 ml Intake Oral 720 ml 240 ml 480 ml 480 ml IV Total 150 ml 100 ml 50 ml Output Urine Total 1270 ml 225 ml 1175 ml 1575 ml Chest Tube Drainage Total 160 ml 50 ml 120 ml 50 ml # Bowel Movements 0 0 0 0 Result Diagram: 02/04/18 0430 02/04/18 0712 Imaging Last Impressions Chest X-Ray 02/03/18 0500 Signed Impressions: CONCLUSION: 1. Left-sided chest tube with no pneumothorax. 2. Status post extubation. Carotid Artery Ultrasound 02/02/18 0000 Signed Impressions: CONCLUSION: 1. No significant stenosis seen in the carotid systems. There is minimally genesis vated peak systolic velocity at the right common carotid artery without a signi ficant stenosis identified. 2. The left vertebral artery was not identified. There is normal antegrade el w in the right vertebral artery. Objective Remarks awake and alert, clear speech, 0n 02 NC anicteric chest tube in place regular rhythm no rales abdomen - soft, extremities no edema,good pulses Procedures 02/02 Emergency CABG x 2 MUIR to LAD - fair SVG to OM - good [facility] [place] A/P Assessment and Plan 52-year-old male admitted with a ACS- non-ST elevation myocardial infarction S/P CABG 02/02 Hyperlipidemia - LDL 125 - cardiology ff - on-ASA/BB/Amiodarone - statins Erythrocytosis improved post op - Hgb 19 on admission- down 16- post op . continue to ff - non smoker, not dehydrated - erythropoietin level pending - Monitor CBC as OP - if persists- consider Hematology consult as OP PT daily Lang Jarrett MD February 04, 2018 10:57
--- NOTE | 2018-02-04 13:53 | HHI.DCPOC ---
Discharge Care Plan Diagnosis: (1) CAD (coronary artery disease) (2) ST elevation myocardial infarction (STEMI) of anterior wall (3) Tobacco abuse (4) NSTEMI (non-ST elevated myocardial infarction) (5) S/P CABG (coronary artery bypass graft) Additional Problems PREVENA Single Use Negative Wound Therapy System Caregiver Instruction Sheet 1. A Prevena dressing system was applied to the chest incision during surgery , to promote wound healing. It works via a suction device (negative pressure wound therapy) to remove low to moderate levels of exudate (drainage) and infectious materials. We recommend that the device stay in place for up to seven days, from day of surgery. 2. Day of Surgery___/ Day of Removal ___/ 3. The dressing should only be removed by a health manager care management. Please arrange removal of device to coincide with Home Health visit and or with Nursing staff at Rehab 4. If skin reddening or irritation of skin occurs, or excessive drainage, please notify the Cardiovascular Surgeons office at [phone]. 5. Light showering is permissible; however the pump should be disconnected and placed in safe location, where it will not get wet. The dressing should not be exposed to direct spray or submerged in water. No bath tub / shower only. Ensure the end of the tubing attached to the dressing is facing down so that water does not enter the top of the tube. 6. To remove Prevena dressing: press purple button to turn off device / remove the suction. Then disconnect the tubing from the pump. The fixation strips should be stretched away from the skin and the dressing lifted at one corner and peeled back until it has been fully removed. 7. After removal, it is ok to shower daily using liquid dial soap and clean wash cloth, rinse and pat dry, and leave incision open to air dry. For any concerns regarding Prevena dressing, and or wounds, please contact Daniella Spencer patient navigator at [phone] or notify the Cardiovascular Surgeons office at [phone]. Incentive spirometry Q1 hr x 10, while awake, also use acapella device hourly whole awake Sternal Breast Bone Precautions: NO pushing or pulling, ( pt must use sternal pillow to support chest with all activities and with coughing ( takes up to 3 months breast bone to heal ) All females to wear sternal bra , launder as needed Daily incision care: ok to shower daily, no tub bath. Wash all incisions with liquid dial soap, clean wash cloth to each site, rinse and pat dry. Observe for any signs of infection, such as drainage which is dark yellow, mann, green or foul smelling. Immediately report to the surgeon any drainage from the chest incision, or legs, and for any abnormal drainage from the chest tube sites. Notify surgeon if any temp >101.5 degrees F. When specialty dressing removed/ or if you do not have one, continue to shower daily as above, then rinse and pat incision dry and paint with betadine daily x 5 days. Allow steri strips to fall off if you have any. Avoid lotions, creams, salves, oils, etc. for the first month Please see attached forms for additional instructions regarding post Open Heart specialty wound vacuum dressings. WAYNE or Prevena , Dressing to be removed by Nursing staff on __02/09/[address] Sifuentes patients , please obtain CBC, BMP, PA & Lat CXR in 2 weeks, results to Dr. Sifuentes ( prescription will be given) ( ) (Tele: [phone]) , F/U appointment: as per MI instructions: PCP in 2 weeks, CV surgeon 2 weeks, Audio Tape Librarian 3-4 weeks For any questions regarding incisions/ dressing / meds / post op care or above Symptoms, Thursday 8am-5pm Heart & Vascular Surgery Office ( Dr. Cho & Dr. Sifuentes), After Hours / Nights (5pm -8am) Weekends and Holidays Please call [facility] ([facility]) Charge Nurse Goals to Promote Your Health * To prevent worsening of your condition and complications * To maintain your health at the optimal level Directions to Meet Your Goals Take your medications as prescribed Follow your dietary instruction Follow activity as directed Keep your appointments as scheduled Take your immunizations and boosters as scheduled If your symptoms worsen call your PCP, if no PCP go to Urgent Care Center or Emergency Room Smoking is Dangerous to Your Health. Avoid second hand smoke Call the 24-hour hour crisis hotline for domestic abuse at Parisa Higgins February 04, 2018 13:53
--- NOTE | 2018-02-04 16:49 | PD.CARD.PN ---
Subjective Subjective Remarks alert in nad Objective Medications Current Medications Medications (Trade) Dose Ordered Sig/Chayo Route Start Time Stop Time Status Last Admin (Pill Splitter) 1 ea UNSCH PRN OTHER 02/02/18 13:45 (Peridex 0.12% Liq) 15 ml BID SWISH-SPIT 02/03/18 09:00 02/04/18 08:31 (NS Flush) 2 ml BID IV FLUSH 02/02/18 21:00 02/04/18 08:30 (NS Flush) 2 ml UNSCH PRN IV FLUSH 02/02/18 17:45 (Aspirin Chew) 81 mg DAILY PO 02/03/18 09:00 02/04/18 08:29 (Protonix) 40 mg DAILY@06 PO 02/03/18 06:00 02/04/18 04:50 (Cordarone) 400 mg Q8HR PO 02/02/18 22:00 02/04/18 16:25 (Tylenol) 650 mg Q4H PRN PO 02/02/18 17:45 (Percocet 5-325 Mg) 1 tab Q3H PRN PO 02/02/18 17:45 02/04/18 11:44 (Toradol Inj) 15 mg Q6H PRN IV PUSH 02/02/18 17:45 02/04/18 17:44 02/04/18 04:49 (Zofran Odt) 4 mg Q6H PRN PO 02/02/18 17:45 (Apresoline Inj) 10 mg Q4H PRN IV PUSH 02/02/18 17:45 (Duoneb Neb) 1 ampule Q2HR NEB PRN NEB 02/02/18 17:45 (Lipitor) 40 mg HS PO 02/03/18 21:00 02/03/18 20:11 (Percocet 5-325 Mg) 2 tab Q4H PRN PO 02/03/18 08:30 02/04/18 04:50 (Duoneb Neb) 1 ampule Q6HR WHILE AWAKE NEB NEB 02/03/18 14:00 02/05/18 13:59 02/04/18 12:01 (Colace) 100 mg BID PO 02/03/18 21:00 (Theragran M Tab) 1 tab DAILY PO 02/03/18 09:00 02/04/18 08:29 (Milk Of Magnesia Liq) 30 ml DAILY PO 02/03/18 09:00 02/03/18 09:00 (Dulcolax Supp) 10 mg UNSCH PRN RECTAL 02/03/18 08:30 (Miralax) 17 gm DAILY PO 02/04/18 09:00 (Senokot) 8.6 mg HS PO 02/03/18 21:00 (Fleets Enema (Adult)) 118 ml UNSCH PRN RECTAL 02/04/18 09:00 (Lopressor) 12.5 mg BID PO 02/03/18 09:00 02/04/18 08:30 (D50w (Vial) Inj) 50 ml UNSCH PRN IV PUSH 02/03/18 08:30 (Glucagon Inj) 1 mg UNSCH PRN OTHER 02/03/18 08:30 (NovoLOG SUPPLEMENTAL SCALE) 1 ACHS SQ 02/04/18 12:00 Vital Signs / I&O Vital Signs Date Time Temp Pulse Resp B/P (MAP) Pulse Ox O2 Delivery O2 Flow Rate FiO2 02/04/18 15:15 98.1 60 18 122/74 (90) 90 02/04/18 12:00 58 02/04/18 11:30 97.7 58 18 131/59 (83) 96 02/04/18 11:00 58 02/04/18 10:00 66 02/04/18 09:00 64 02/04/18 08:38 95 Nasal Cannula 3.00 02/04/18 08:15 98.1 60 18 119/63 (81) 90 02/04/18 08:15 90 Nasal Cannula 4.00 02/04/18 08:00 62 02/04/18 07:01 61 02/04/18 06:00 56 02/04/18 05:00 66 02/04/18 04:00 98.2 65 16 140/67 (91) 97 02/04/18 04:00 56 02/04/18 03:00 61 02/04/18 02:00 50 02/04/18 01:00 50 02/04/18 00:00 54 02/03/18 23:34 97.8 54 14 129/57 (81) 97 02/03/18 23:00 55 02/03/18 22:00 58 02/03/18 21:00 52 02/03/18 20:00 97.8 69 14 139/74 (95) 90 02/03/18 20:00 74 02/03/18 20:00 96 Nasal Cannula 4.00 02/03/18 19:00 76 02/03/18 18:01 65 02/03/18 17:01 62 I/O 02/03/18 02/03/18 02/03/18 02/04/18 02/04/18 02/04/18 07:00 15:00 23:00 07:00 15:00 23:00 Intake Total 870 ml 340 ml 480 ml 530 ml 50 ml Output Total 1430 ml 275 ml 1295 ml 1625 ml Balance -560 ml 65 ml -815 ml -1095 ml 50 ml Intake Oral 720 ml 240 ml 480 ml 480 ml IV Total 150 ml 100 ml 50 ml 50 ml Output Urine Total 1270 ml 225 ml 1175 ml 1575 ml Chest Tube Drainage Total 160 ml 50 ml 120 ml 50 ml # Bowel Movements 0 0 0 0 Laboratory GENERAL: SKIN: Warm and dry. HEAD: Normocephalic. EYES: No scleral icterus. No injection or drainage. NECK: Supple, trachea midline. No JVD or lymphadenopathy. CARDIOVASCULAR: Regular rate and rhythm without murmurs, gallops, or rubs. RESPIRATORY: Breath sounds equal bilaterally. No accessory muscle use. GASTROINTESTINAL: Abdomen soft, non-tender, nondistended. MUSCULOSKELETAL: No cyanosis, or edema. BACK: Nontender without obvious deformity. No CVA tenderness. Laboratory Tests Test 02/04/18 04:30 02/04/18 07:12 White Blood Count 11.9 TH/MM3 Red Blood Count 4.55 MIL/MM3 Hemoglobin 14.8 GM/DL Hematocrit 42.7 % Mean Corpuscular Volume 93.8 FL Mean Corpuscular Hemoglobin 32.6 PG Mean Corpuscular Hemoglobin Concent 34.7 % Red Cell Distribution Width 13.6 % Platelet Count 99 TH/MM3 Mean Platelet Volume 8.9 FL Neutrophils (%) (Auto) 80.1 % Lymphocytes (%) (Auto) 12.5 % Monocytes (%) (Auto) 6.2 % Eosinophils (%) (Auto) 0.4 % Basophils (%) (Auto) 0.8 % Neutrophils # (Auto) 9.5 TH/MM3 Lymphocytes # (Auto) 1.5 TH/MM3 Monocytes # (Auto) 0.7 TH/MM3 Eosinophils # (Auto) 0.0 TH/MM3 Basophils # (Auto) 0.1 TH/MM3 CBC Comment AUTO DIFF Differential Comment AUTO DIFF CONFIRMED Blood Urea Nitrogen 16 MG/DL Creatinine 0.87 MG/DL Random Glucose 109 MG/DL Calcium Level 8.3 MG/DL Magnesium Level 2.3 MG/DL Sodium Level 139 MEQ/L Potassium Level 4.7 MEQ/L Chloride Level 101 MEQ/L Carbon Dioxide Level 33.2 MEQ/L Anion Gap 5 MEQ/L Estimat Glomerular Filtration Rate 92 ML/MIN Assessment and Plan Problem List: (1) S/P CABG (coronary artery bypass graft) ICD Codes: Z95.1 - Presence of aortocoronary bypass graft (2) Chest pain ICD Codes: R07.9 - Chest pain Status: Acute (3) Bronchitis ICD Codes: J40 - Bronchitis Status: Acute (4) CAD (coronary artery disease) ICD Codes: I25.10 - CAD (coronary artery disease) Status: Acute (5) ST elevation myocardial infarction (STEMI) of anterior wall ICD Codes: I21.09 - ST elevation myocardial infarction (STEMI) of anterior wall Status: Acute (6) Acute systolic CHF (congestive heart failure) ICD Codes: I50.21 - Acute systolic CHF (congestive heart failure) Status: Acute (7) Tobacco abuse ICD Codes: Z72.0 - Tobacco use (8) NSTEMI (non-ST elevated myocardial infarction) ICD Codes: I21.4 - Non-ST elevation (NSTEMI) myocardial infarction Assessment and Plan 1.) NSTEMI - pod#2 cabg, doing well, continue aspirin, lipitor 40 mg hs, metoprolol; chest tubes out Davi Brown MD February 04, 2018 16:49
[2018-02-04] MEDS: ATORVASTATIN 40 MG TAB PO SCH (20:13)
[2018-02-04] MEDS: SENNOSIDES 8.6 MG TAB PO SCH (20:14)
[2018-02-04] MEDS ORDERED: PILL SPLITTER OTHER PRN (21:15)
[2018-02-04] MEDS: CYCLOBENZAPRINE HCL 10 MG TAB PO SCH (22:36)
[2018-02-05] VITALS (27 sets, daily range): BP systolic 113–174; BP diastolic 65–102; PULSE 46–88; RESP 16–18; TEMP 97.8–98.2; O2SAT 92–97
[2018-02-05 04:45] LABS: HEMATOCRIT 43.5 % (39.0-51.0); HEMOGLOBIN 14.9 GM/DL (13.0-17.0); MEAN CELL VOLUME 95.2 FL (80.0-100.0); MEAN CORPUSCULAR HEMOGLOBIN 32.5 PG (27.0-34.0); MEAN CORPUSCULAR HGB CONC 34.2 % (32.0-36.0); MEAN PLATELET VOLUME 8.2 FL (7.0-11.0); PLATELET COUNT 107 TH/MM3 (150-450); RED BLOOD COUNT 4.57 MIL/MM3 (4.50-5.90); RED CELL DISTRIBUTION WIDTH 13.7 % (11.6-17.2); WHITE BLOOD COUNT 10.2 TH/MM3 (4.0-11.0)
[2018-02-05] MEDS: PANTOPRAZOLE SOD 40 MG DELAYED RELEASE TAB PO SCH (05:48)
[2018-02-05] MEDS: AMIODARONE 200 MG TAB PO SCH ×2 (05:48→14:05)
[2018-02-05] MEDS: oxyCODONE/ACETAMINOPHEN 5 MG/325 MG TAB PO PRN ×3 (06:24→21:21)
--- NOTE | 2018-02-05 06:52 | RADRPT ---
EXAM DATE: 02/05/2018 6:27 AM EDT AGE/SEX: 52 years / Male INDICATIONS: Chest tube removal- rule out pneumothorax. CLINICAL DATA: This is the patient's subsequent encounter. Patient reports that signs and symptoms h ave been present for 1 day and indicates a pain score of Nonresponsive. MEDICAL/SURGICAL HISTORY: None. Non-responsive. [place] [facility] [place]. . FINDINGS: The patient is status post sternotomy. The heart size is borderline enlarged. There is a right manufacturing intern al jugular central line in good position. There is some minimal increased density at the bases being worse on the right. The left-sided chest tube is been removed. No pneumothorax is seen. CONCLUSION: Suspected minimal atelectasis at the bases being worse on the right. Electronically signed by: Ezequiel Ramos MD 02/05/2018 6:51 AM EDT
[2018-02-05] MEDS: INSULIN ASPART SUPPLEMENTAL SCALE SQ SCH (08:00)
[2018-02-05] MEDS: RESP: ALBUTEROL 2.5 MG/IPRATROPIUM 0.5 MG NEB (SCH) NEB ×3 (08:16→19:51)
[2018-02-05] MEDS: MAGNESIUM HYDROXIDE SUSP 30 ML CUP PO SCH (08:30)
[2018-02-05] MEDS: METOPROLOL TARTRATE 25 MG TAB PO SCH ×2 (08:30→21:22)
[2018-02-05] MEDS: MULTIVITAMINS/MINERALS THERAPEUTIC TAB PO SCH (08:30)
[2018-02-05] MEDS: ASPIRIN 81 MG CHEW TAB PO SCH (08:30)
[2018-02-05] MEDS: POLYETHYLENE GLYCOL 17 GM PKG PO SCH (08:31)
[2018-02-05] MEDS: DOCUSATE SODIUM 100 MG CAP PO SCH ×3 (08:31→21:15)
[2018-02-05] MEDS: CHLORHEXIDINE GLUCONATE 0.12% 15 ML CUP SWISH-SPIT SCH ×2 (08:31→21:00)
[2018-02-05] MEDS: SODIUM CHLORIDE 0.9% FLUSH 10 ML FLUSH IV FLUSH SCH ×2 (08:32→21:00)
[2018-02-05] MEDS ORDERED: FUROSEMIDE 40 MG/4 ML VIAL IV PUSH ONE (10:00)
[2018-02-05] MEDS: methylPREDNISolone SOD SUCC 40 MG/1 ML VIAL IV PUSH SCH ×2 (14:07→17:19)
--- NOTE | 2018-02-05 14:08 | PD.CARD.PN ---
Subjective Subjective Remarks alert in nad Objective Medications Current Medications Medications (Trade) Dose Ordered Sig/Chayo Route Start Time Stop Time Status Last Admin (Pill Splitter) 1 ea UNSCH PRN OTHER 02/02/18 13:45 (Peridex 0.12% Liq) 15 ml BID SWISH-SPIT 02/03/18 09:00 02/05/18 08:31 (NS Flush) 2 ml BID IV FLUSH 02/02/18 21:00 02/05/18 08:32 (NS Flush) 2 ml UNSCH PRN IV FLUSH 02/02/18 17:45 (Aspirin Chew) 81 mg DAILY PO 02/03/18 09:00 02/05/18 08:30 (Protonix) 40 mg DAILY@06 PO 02/03/18 06:00 02/05/18 05:48 (Cordarone) 400 mg Q8HR PO 02/02/18 22:00 02/05/18 14:05 (Tylenol) 650 mg Q4H PRN PO 02/02/18 17:45 (Percocet 5-325 Mg) 1 tab Q3H PRN PO 02/02/18 17:45 02/05/18 14:06 (Zofran Odt) 4 mg Q6H PRN PO 02/02/18 17:45 (Apresoline Inj) 10 mg Q4H PRN IV PUSH 02/02/18 17:45 (Duoneb Neb) 1 ampule Q2HR NEB PRN NEB 02/02/18 17:45 (Lipitor) 40 mg HS PO 02/03/18 21:00 02/04/18 20:13 (Percocet 5-325 Mg) 2 tab Q4H PRN PO 02/03/18 08:30 02/05/18 06:24 (Colace) 100 mg BID PO 02/03/18 21:00 02/05/18 08:34 (Theragran M Tab) 1 tab DAILY PO 02/03/18 09:00 02/05/18 08:30 (Milk Of Magnesia Liq) 30 ml DAILY PO 02/03/18 09:00 02/03/18 09:00 (Dulcolax Supp) 10 mg UNSCH PRN RECTAL 02/03/18 08:30 (Miralax) 17 gm DAILY PO 02/04/18 09:00 (Senokot) 8.6 mg HS PO 02/03/18 21:00 (Fleets Enema (Adult)) 118 ml UNSCH PRN RECTAL 02/04/18 09:00 (Lopressor) 12.5 mg BID PO 02/03/18 09:00 02/05/18 08:30 (D50w (Vial) Inj) 50 ml UNSCH PRN IV PUSH 02/03/18 08:30 (Glucagon Inj) 1 mg UNSCH PRN OTHER 02/03/18 08:30 (Flexeril) 5 mg HS PO 02/04/18 21:00 02/04/18 22:36 (Pill Splitter) 1 ea UNSCH PRN OTHER 02/04/18 21:15 (Duoneb Neb) 1 ampule Q6HR WHILE AWAKE NEB NEB 02/05/18 14:00 02/05/18 13:06 (SoluMEDROL INJ) 40 mg Q6HR IV PUSH 02/05/18 13:30 02/06/18 06:01 02/05/18 14:07 Vital Signs / I&O Vital Signs Date Time Temp Pulse Resp B/P (MAP) Pulse Ox O2 Delivery O2 Flow Rate FiO2 02/05/18 13:01 64 02/05/18 12:00 58 02/05/18 11:30 98.1 63 18 118/78 (91) 96 02/05/18 11:00 60 02/05/18 10:01 62 02/05/18 09:00 60 02/05/18 08:30 90 Nasal Cannula 4.00 02/05/18 08:30 98.2 65 18 126/72 (90) 96 02/05/18 08:00 64 02/05/18 07:00 50 02/05/18 05:00 55 02/05/18 04:00 49 02/05/18 03:00 50 02/05/18 03:00 98.2 49 16 144/73 (96) 97 02/05/18 02:00 53 02/05/18 01:00 46 02/05/18 00:00 97 Nasal Cannula 3.00 02/05/18 00:00 98.1 57 18 142/65 (90) 97 02/05/18 00:00 48 02/04/18 23:00 46 02/04/18 22:00 50 02/04/18 21:00 56 02/04/18 20:24 Nasal Cannula 3.00 02/04/18 20:00 89 Room Air 02/04/18 20:00 98.1 59 18 141/76 (97) 89 02/04/18 20:00 80 02/04/18 19:00 54 02/04/18 18:01 60 02/04/18 17:01 56 02/04/18 16:00 66 02/04/18 15:15 98.1 60 18 122/74 (90) 90 02/04/18 15:00 56 I/O 02/04/18 02/04/18 02/04/18 02/05/18 02/05/18 02/05/18 07:00 15:00 23:00 07:00 15:00 23:00 Intake Total 530 ml 50 ml 480 ml 480 ml Output Total 1625 ml 450 ml Balance -1095 ml 50 ml 30 ml 480 ml Intake Oral 480 ml 480 ml 480 ml IV Total 50 ml 50 ml Output Urine Total 1575 ml 450 ml Chest Tube Drainage Total 50 ml # Voids 2 4 # Bowel Movements 0 1 0 Laboratory GENERAL: SKIN: Warm and dry. HEAD: Normocephalic. EYES: No scleral icterus. No injection or drainage. NECK: Supple, trachea midline. No JVD or lymphadenopathy. CARDIOVASCULAR: Regular rate and rhythm without murmurs, gallops, or rubs. RESPIRATORY: Breath sounds equal bilaterally. No accessory muscle use. GASTROINTESTINAL: Abdomen soft, non-tender, nondistended. MUSCULOSKELETAL: No cyanosis, or edema. BACK: Nontender without obvious deformity. No CVA tenderness. Laboratory Tests Test 02/05/18 04:30 White Blood Count 10.2 TH/MM3 Red Blood Count 4.57 MIL/MM3 Hemoglobin 14.9 GM/DL Hematocrit 43.5 % Mean Corpuscular Volume 95.2 FL Mean Corpuscular Hemoglobin 32.5 PG Mean Corpuscular Hemoglobin Concent 34.2 % Red Cell Distribution Width 13.7 % Platelet Count 107 TH/MM3 Mean Platelet Volume 8.2 FL Imaging Last 24 hours Impressions Chest X-Ray 02/05/18 0600 Signed Impressions: CONCLUSION: Suspected minimal atelectasis at the bases being worse on the right. Assessment and Plan Problem List: (1) S/P CABG (coronary artery bypass graft) ICD Codes: Z95.1 - Presence of aortocoronary bypass graft (2) Chest pain ICD Codes: R07.9 - Chest pain Status: Acute (3) Bronchitis ICD Codes: J40 - Bronchitis Status: Acute (4) CAD (coronary artery disease) ICD Codes: I25.10 - CAD (coronary artery disease) Status: Acute (5) ST elevation myocardial infarction (STEMI) of anterior wall ICD Codes: I21.09 - ST elevation myocardial infarction (STEMI) of anterior wall Status: Acute (6) Acute systolic CHF (congestive heart failure) ICD Codes: I50.21 - Acute systolic CHF (congestive heart failure) Status: Acute (7) Tobacco abuse ICD Codes: Z72.0 - Tobacco use (8) NSTEMI (non-ST elevated myocardial infarction) ICD Codes: I21.4 - Non-ST elevation (NSTEMI) myocardial infarction Assessment and Plan 1.) NSTEMI - pod# 3, cabg, doing well, continue aspirin, lipitor 40 mg hs, metoprolol; chest tubes out Davi Brown MD February 05, 2018 14:08
--- NOTE | 2018-02-05 15:59 | PD.CAR.PN ---
CVT Progress Note Subjective/Hospital Course: A 52-year-old male with history of coronary artery disease with prior PCI 10 years ago for the first and then in October of 2013. He has 2 stents into the LAD. He presented to the emergency room with chest pain 10/10 morning of 02/02 , felt like it was the same kind of pain that he had with his previous VT. His pain was relieved with aspirin, nitro and heparin drip. Troponin peaked at 0.26. He was taken to the dental laboratory technician apprentice by Dr. Brown with risk factors including age, prior VT, tobacco abuse. Catheterization showed ejection fraction of 55%, left main disease 95%, proximal LAD 95%. The circumflex was 90%. We were called immediately to take the patient to the operating room after discussing and interviewing the patient in the dental laboratory technician apprentice. PAST MEDICAL HISTORY: Includes anxiety, depression, prior VT in 2005 and 2013, esophagitis, tonsillectomy. preop dx (1) ST elevation myocardial infarction (STEMI) of anterior wall (2) Acute systolic CHF (congestive heart failure) (3) CAD (coronary artery disease) surgery 02/02 Emergency CABG x 2 MUIR to LAD - fair SVG to OM - good L EVH pt extubated after surgery crystalloid 3200cc, 1000cc cell saver, 2000cc EBL 02/03 remains on 5 liter 02 gentle diuresis will need social service consult and PCP for followup pain controlled transfer to stepdown unit 02/04 chest tube removed without difficulty on BB ASA, statin - balance / wean 02 as tolerated 02/05 on 02 , has insp and exp wheeze lasix IV and Solumedrol x 3 doses CXR noted eval for dc in am Objective: GENERAL: A&O x 3 SKIN: Warm and dry. prevena dressing to chest , incision intact to left leg HEAD: Normocephalic. EYES: No scleral icterus. No injection or drainage. NECK: Supple, trachea midline. No JVD or lymphadenopathy. CARDIOVASCULAR: Regular rate and rhythm without murmurs, gallops, or rubs. RESPIRATORY: Breath sounds equal bilaterally. No accessory muscle use. Insp and exp wheeze noted GASTROINTESTINAL: Abdomen soft, non-tender, nondistended. MUSCULOSKELETAL: No cyanosis, or edema. BACK: Nontender without obvious deformity. No CVA tenderness. Vital Signs Date Time Temp Pulse Resp B/P (MAP) Pulse Ox O2 Delivery O2 Flow Rate FiO2 5/25/18 15:15 95 Nasal Cannula 3.00 02/05/18 15:15 98.0 65 18 113/70 (84) 95 02/05/18 13:01 64 02/05/18 12:00 58 02/05/18 11:30 98.1 63 18 118/78 (91) 96 02/05/18 11:00 60 02/05/18 10:01 62 02/05/18 09:00 60 02/05/18 08:30 90 Nasal Cannula 4.00 02/05/18 08:30 98.2 65 18 126/72 (90) 96 02/05/18 08:00 64 02/05/18 07:00 50 02/05/18 05:00 55 02/05/18 04:00 49 02/05/18 03:00 50 02/05/18 03:00 98.2 49 16 144/73 (96) 97 02/05/18 02:00 53 02/05/18 01:00 46 02/05/18 00:00 97 Nasal Cannula 3.00 02/05/18 00:00 98.1 57 18 142/65 (90) 97 02/05/18 00:00 48 02/04/18 23:00 46 02/04/18 22:00 50 02/04/18 21:00 56 02/04/18 20:24 Nasal Cannula 3.00 02/04/18 20:00 89 Room Air 02/04/18 20:00 98.1 59 18 141/76 (97) 89 02/04/18 20:00 80 02/04/18 19:00 54 02/04/18 18:01 60 02/04/18 17:01 56 02/04/18 16:00 66 Labs: Laboratory Tests Test 02/05/18 04:30 White Blood Count 10.2 TH/MM3 (4.0-11.0) Red Blood Count 4.57 MIL/MM3 (4.50-5.90) Hemoglobin 14.9 GM/DL (13.0-17.0) Hematocrit 43.5 % (39.0-51.0) Mean Corpuscular Volume 95.2 FL (80.0-100.0) Mean Corpuscular Hemoglobin 32.5 PG (27.0-34.0) Mean Corpuscular Hemoglobin Concent 34.2 % (32.0-36.0) Red Cell Distribution Width 13.7 % (11.6-17.2) Platelet Count 107 TH/MM3 (150-450) Mean Platelet Volume 8.2 FL (7.0-11.0) Result Diagram: 02/05/18 0430 02/04/18 0712 Telemetry: NSR (1) S/P CABG (coronary artery bypass graft) Plan: ASA, stain BB OOB ambulate pulm toileting CM to eval for HHC gentle diuresis eval for dc in am (2) Chest pain (3) Bronchitis (4) CAD (coronary artery disease) (5) ST elevation myocardial infarction (STEMI) of anterior wall (6) Acute systolic CHF (congestive heart failure) (7) Tobacco abuse Plan: smoking cessation (8) NSTEMI (non-ST elevated myocardial infarction) (9) COPD (chronic obstructive pulmonary disease) Plan: nebs, ezpap , acapella solumedrol 40mg q6hr x 4 doses Parisa Higgins February 05, 2018 15:59
[2018-02-05] MEDS ORDERED: ASPI81 PO (16:14)
[2018-02-05] MEDS ORDERED: METO25TA3 PO (16:14)
[2018-02-05] MEDS ORDERED: ZITH250T PO (16:14)
[2018-02-05] MEDS ORDERED: DOCU1CAP39 PO (16:14)
[2018-02-05] MEDS ORDERED: OXYC1TAB63 PO (16:14)
[2018-02-05] MEDS ORDERED: THERM PO (16:14)
[2018-02-05] MEDS ORDERED: AMIO200T PO (16:14)
[2018-02-05] MEDS ORDERED: LOVA40TA PO (16:14)
[2018-02-05] MEDS ORDERED: MEDR4PAK PO (16:14)
[2018-02-05] MEDS ORDERED: LOVA20TA PO (16:14)
[2018-02-05] MEDS ORDERED: AZITHROMYCIN 250 MG TAB PO ONE (17:00)
[2018-02-05] MEDS: CYCLOBENZAPRINE HCL 10 MG TAB PO SCH (21:15)
[2018-02-05] MEDS: ATORVASTATIN 40 MG TAB PO SCH (21:15)
[2018-02-05] MEDS: SENNOSIDES 8.6 MG TAB PO SCH (21:15)
[2018-02-06] VITALS (18 sets, daily range): BP systolic 121–156; BP diastolic 69–87; PULSE 48–74; RESP 16–18; TEMP 97.8–98.1; O2SAT 92–95
[2018-02-06] MEDS: methylPREDNISolone SOD SUCC 40 MG/1 ML VIAL IV PUSH SCH ×2 (00:24→05:11)
[2018-02-06] MEDS: AMIODARONE 200 MG TAB PO SCH ×2 (02:14→15:16)
[2018-02-06 04:29] LABS: BICARBONATE 34.2 MEQ/L (21.0-32.0); CALCIUM 8.7 MG/DL (8.5-10.1); CREATININE 0.91 MG/DL (0.60-1.30); MAGNESIUM 2.4 MG/DL (1.5-2.5)
[2018-02-06] MEDS: PANTOPRAZOLE SOD 40 MG DELAYED RELEASE TAB PO SCH (05:11)
[2018-02-06] MEDS: RESP: ALBUTEROL 2.5 MG/IPRATROPIUM 0.5 MG NEB (SCH) NEB ×2 (08:26→12:18)
[2018-02-06] MEDS: CHLORHEXIDINE GLUCONATE 0.12% 15 ML CUP SWISH-SPIT SCH (09:28)
[2018-02-06] MEDS: ASPIRIN 81 MG CHEW TAB PO SCH (09:28)
[2018-02-06] MEDS: POLYETHYLENE GLYCOL 17 GM PKG PO SCH (09:28)
[2018-02-06] MEDS: MAGNESIUM HYDROXIDE SUSP 30 ML CUP PO SCH (09:29)
[2018-02-06] MEDS: DOCUSATE SODIUM 100 MG CAP PO SCH (09:29)
[2018-02-06] MEDS: METOPROLOL TARTRATE 25 MG TAB PO SCH (09:29)
[2018-02-06] MEDS: MULTIVITAMINS/MINERALS THERAPEUTIC TAB PO SCH (09:29)
[2018-02-06] MEDS: SODIUM CHLORIDE 0.9% FLUSH 10 ML FLUSH IV FLUSH SCH (09:33)
--- NOTE | 2018-02-06 09:43 | HHI.DS ---
Discharge Summary Admission Date February 02, 2018 at 09:42 Admitting Diagnosis unstable angina CBC/BMP: 02/05/18 0430 02/06/18 0348 Significant Findings Laboratory Tests Test 02/04/18 04:30 02/04/18 07:12 02/05/18 04:30 02/06/18 03:48 White Blood Count 11.9 TH/MM3 (4.0-11.0) Platelet Count 99 TH/MM3 (150-450) 107 TH/MM3 (150-450) Neutrophils (%) (Auto) 80.1 % (16.0-70.0) Neutrophils # (Auto) 9.5 TH/MM3 (1.8-7.7) Random Glucose 109 MG/DL (74-106) 143 MG/DL (74-106) Calcium Level 8.3 MG/DL (8.5-10.1) Carbon Dioxide Level 33.2 MEQ/L (21.0-32.0) 34.2 MEQ/L (21.0-32.0) Blood Urea Nitrogen 19 MG/DL (7-18) Chloride Level 97 MEQ/L (98-107) Estimat Glomerular Filtration Rate 87 ML/MIN (>89) Hospital Course A 52-year-old male with history of coronary artery disease with prior PCI 10 years ago for the first and then in October of 2013. He has 2 stents into the LAD. He presented to the emergency room with chest pain 10/10 morning of 02/02 , felt like it was the same kind of pain that he had with his previous OH. His pain was relieved with aspirin, nitro and heparin drip. Troponin peaked at 0.26. He was taken to the lab pack chemist by Dr. Brown with risk factors including age, prior OH, tobacco abuse. Catheterization showed ejection fraction of 55%, left main disease 95%, proximal LAD 95%. The circumflex was 90%. We were called immediately to take the patient to the operating room after discussing and interviewing the patient in the lab pack chemist. PAST MEDICAL HISTORY: Includes anxiety, depression, prior OH in 2005 and 2013, esophagitis, tonsillectomy. preop dx (1) ST elevation myocardial infarction (STEMI) of anterior wall (2) Acute systolic CHF (congestive heart failure) (3) CAD (coronary artery disease) surgery 02/02 Emergency CABG x 2 MUIR to LAD - fair SVG to OM - good L EVH pt extubated after surgery crystalloid 3200cc, 1000cc cell saver, 2000cc EBL 02/03 remains on 5 liter 02 gentle diuresis will need social service consult and PCP for followup pain controlled transfer to stepdown unit 02/04 chest tube removed without difficulty on BB ASA, statin - balance / wean 02 as tolerated 02/05 on 02 , has insp and exp wheeze lasix IV and Solumedrol x 3 doses CXR noted eval for dc in am 02/06 D/C Home Pt Condition on Discharge: Good Discharge Disposition: Disch w/ Home Health Serv Discharge Instructions DIET: Follow Instructions for: Heart Healthy Diet Activities you can perform: Weight Bearing as [place], Shower Only-No Bath, Shaving Activities to avoid: Lifting/Bending, Driving, Sexual Activity Courtney Cho MD February 06, 2018 09:43
--- NOTE | 2018-02-06 09:44 | HHI.DS ---
Discharge Summary Admission Date February 02, 2018 at 09:42 Admitting Diagnosis unstable angina CBC/BMP: 02/05/18 0430 02/06/18 0348 Significant Findings Laboratory Tests Test 02/04/18 04:30 02/04/18 07:12 02/05/18 04:30 02/06/18 03:48 White Blood Count 11.9 TH/MM3 (4.0-11.0) Platelet Count 99 TH/MM3 (150-450) 107 TH/MM3 (150-450) Neutrophils (%) (Auto) 80.1 % (16.0-70.0) Neutrophils # (Auto) 9.5 TH/MM3 (1.8-7.7) Random Glucose 109 MG/DL (74-106) 143 MG/DL (74-106) Calcium Level 8.3 MG/DL (8.5-10.1) Carbon Dioxide Level 33.2 MEQ/L (21.0-32.0) 34.2 MEQ/L (21.0-32.0) Blood Urea Nitrogen 19 MG/DL (7-18) Chloride Level 97 MEQ/L (98-107) Estimat Glomerular Filtration Rate 87 ML/MIN (>89) Hospital Course A 52-year-old male with history of coronary artery disease with prior PCI 10 years ago for the first and then in October of 2013. He has 2 stents into the LAD. He presented to the emergency room with chest pain 10/10 morning of 02/02 , felt like it was the same kind of pain that he had with his previous AZ. His pain was relieved with aspirin, nitro and heparin drip. Troponin peaked at 0.26. He was taken to the [facility] by Dr. Brown with risk factors including age, prior AZ, tobacco abuse. Catheterization showed ejection fraction of 55%, left main disease 95%, proximal LAD 95%. The circumflex was 90%. We were called immediately to take the patient to the operating room after discussing and interviewing the patient in the [facility]. PAST MEDICAL HISTORY: Includes anxiety, depression, prior AZ in 2005 and 2013, esophagitis, tonsillectomy. preop dx (1) ST elevation myocardial infarction (STEMI) of anterior wall (2) Acute systolic CHF (congestive heart failure) (3) CAD (coronary artery disease) surgery 02/02 Emergency CABG x 2 MUIR to LAD - fair SVG to OM - good L EVH pt extubated after surgery crystalloid 3200cc, 1000cc cell saver, 2000cc EBL 02/03 remains on 5 liter 02 gentle diuresis will need social service consult and PCP for followup pain controlled transfer to stepdown unit 02/04 chest tube removed without difficulty on BB ASA, statin - balance / wean 02 as tolerated 02/05 on 02 , has insp and exp wheeze lasix IV and Solumedrol x 3 doses CXR noted eval for dc in am 02/06 D/C Home Pt Condition on Discharge: Good Discharge Disposition: Disch w/ Home Health Serv Discharge Instructions DIET: Follow Instructions for: Heart Healthy Diet Activities you can perform: Weight Bearing as [place], Shower Only-No Bath, Shaving Activities to avoid: Lifting/Bending, Driving, Sexual Activity Follow up Referrals: Cardiology - 4 Weeks with Davi Brown MD PCP Follow-up - 2 Weeks with Jokaris Hernandez Please contact for appt within 2 weeks of discharge Surgical - 2 Weeks with Parisa Higgins New Orders: BASIC METABOLIC PROF - 2 Weeks CBC NO DIFF - 2 Weeks X-RAY CHEST PA & LAT - 2 Weeks New Medications: Azithromycin (Zithromax) 250 Mg Tab 250 MG PO DAILY for Infection for 4 Days, #4 TAB 0 Refills Lovastatin (Lovastatin) 20 Mg Tab 20 MG PO DAILY for Cholesterol Management, #30 TAB 0 Refills Lovastatin (Lovastatin) 40 Mg Tab 40 MG PO DAILY for Cholesterol Management, #30 TAB 2 Refills Methylprednisolone Dosepak (Medrol Dosepak) 4 Mg Dspk 4 MG PO DIRECTED, #1 DSPK 0 Refills Per Pharmacist direction Amiodarone (Amiodarone) 200 Mg Tab 200 MG PO Q12H for heart rhythm, #28 TAB 0 Refills Aspirin (Tgt Aspirin) 81 Mg Chw 81 MG PO DAILY for Blood Clot Prevention, #30 EA 2 Refills Docusate Sodium (Dok) 100 Mg Cap 100 MG PO BID for Constipation, #60 CAP 0 Refills Metoprolol Tartrate (Metoprolol Tartrate) 25 Mg Tab 12.5 MG PO BID for Blood Pressure Management, #60 TAB 2 Refills Multiple Vitamins W/ Minerals (Thera M Plus) 1 Tab 1 TAB PO DAILY for mutli vitamin, #30 TAB 2 Refills Oxycodone HCl/Acetaminophen (Oxycodone-Acetaminophen 5-325) 5 Mg-325 Mg Tablet 1 TAB PO Q4HR PRN for PAIN SCALE 1 TO 5, #40 TAB 0 Refills Courtney Cho MD February 06, 2018 09:44
[2018-02-06] MEDS ORDERED: FUROSEMIDE 40 MG/4 ML VIAL IV PUSH ONE (11:00)
--- NOTE | 2018-02-06 11:23 | PD.CARD.PN ---
Subjective Subjective Remarks alert in nad Objective Medications Current Medications Medications (Trade) Dose Ordered Sig/Chayo Route Start Time Stop Time Status Last Admin (Pill Splitter) 1 ea UNSCH PRN OTHER 02/02/18 13:45 (Peridex 0.12% Liq) 15 ml BID SWISH-SPIT 02/03/18 09:00 02/06/18 09:28 (NS Flush) 2 ml BID IV FLUSH 02/02/18 21:00 02/06/18 09:33 (NS Flush) 2 ml UNSCH PRN IV FLUSH 02/02/18 17:45 (Aspirin Chew) 81 mg DAILY PO 02/03/18 09:00 02/06/18 09:28 (Protonix) 40 mg DAILY@06 PO 02/03/18 06:00 02/06/18 05:11 (Tylenol) 650 mg Q4H PRN PO 02/02/18 17:45 (Percocet 5-325 Mg) 1 tab Q3H PRN PO 02/02/18 17:45 02/05/18 14:06 (Zofran Odt) 4 mg Q6H PRN PO 02/02/18 17:45 (Apresoline Inj) 10 mg Q4H PRN IV PUSH 02/02/18 17:45 (Duoneb Neb) 1 ampule Q2HR NEB PRN NEB 02/02/18 17:45 (Lipitor) 40 mg HS PO 02/03/18 21:00 02/05/18 21:15 (Percocet 5-325 Mg) 2 tab Q4H PRN PO 02/03/18 08:30 02/05/18 21:21 (Colace) 100 mg BID PO 02/03/18 21:00 02/06/18 09:29 (Theragran M Tab) 1 tab DAILY PO 02/03/18 09:00 02/06/18 09:29 (Milk Of Magnesia Liq) 30 ml DAILY PO 02/03/18 09:00 02/06/18 09:29 (Dulcolax Supp) 10 mg UNSCH PRN RECTAL 02/03/18 08:30 (Miralax) 17 gm DAILY PO 02/04/18 09:00 02/06/18 09:28 (Senokot) 8.6 mg HS PO 5/23/18 21:00 02/05/18 21:15 (Fleets Enema (Adult)) 118 ml UNSCH PRN RECTAL 02/04/18 09:00 (Lopressor) 12.5 mg BID PO 02/03/18 09:00 02/06/18 09:29 (D50w (Vial) Inj) 50 ml UNSCH PRN IV PUSH 02/03/18 08:30 (Glucagon Inj) 1 mg UNSCH PRN OTHER 02/03/18 08:30 (Flexeril) 5 mg HS PO 02/04/18 21:00 02/05/18 21:15 (Pill Splitter) 1 ea UNSCH PRN OTHER 02/04/18 21:15 (Duoneb Neb) 1 ampule Q6HR WHILE AWAKE NEB NEB 02/05/18 14:00 02/06/18 08:26 (Cordarone) 400 mg Q12H PO 02/06/18 02:00 02/06/18 02:14 Vital Signs / I&O Vital Signs Date Time Temp Pulse Resp B/P (MAP) Pulse Ox O2 Delivery O2 Flow Rate FiO2 02/06/18 10:00 54 02/06/18 09:00 60 02/06/18 08:28 95 Nasal Cannula 3.00 02/06/18 08:09 97.8 60 16 128/80 (96) 92 02/06/18 08:09 92 Nasal Cannula 3.50 02/06/18 08:00 60 02/06/18 07:00 51 02/06/18 06:00 52 02/06/18 05:00 57 02/06/18 04:00 98.1 65 16 153/77 (102) 93 02/06/18 04:00 52 02/06/18 03:00 51 02/06/18 02:00 52 02/06/18 01:00 50 02/06/18 00:00 97.8 48 18 121/69 (86) 92 02/06/18 00:00 48 02/05/18 23:00 51 02/05/18 22:00 54 02/05/18 21:00 70 02/05/18 20:00 64 02/05/18 20:00 92 Nasal Cannula 3.00 02/05/18 20:00 97.8 65 18 174/102 (126) 92 02/05/18 19:51 94 Nasal Cannula 3.00 02/05/18 19:00 64 02/05/18 18:01 61 02/05/18 17:01 66 02/05/18 16:00 58 02/05/18 15:15 95 Nasal Cannula 3.00 02/05/18 15:15 98.0 65 18 113/70 (84) 95 02/05/18 15:00 66 02/05/18 14:00 72 02/05/18 13:01 64 02/05/18 12:00 58 02/05/18 11:30 98.1 63 18 118/78 (91) 96 I/O 02/05/18 02/05/18 02/05/18 02/06/18 02/06/18 02/06/18 07:00 15:00 23:00 07:00 15:00 23:00 Intake Total 480 ml 802 ml 480 ml Output Total 1850 ml 550 ml Balance 480 ml -1048 ml -70 ml Intake Oral 480 ml 802 ml 480 ml Output Urine Total 1850 ml 550 ml # Voids 4 6 # Bowel Movements 0 0 0 Physical Exam GENERAL: SKIN: Warm and dry. HEAD: Normocephalic. EYES: No scleral icterus. No injection or drainage. NECK: Supple, trachea midline. No JVD or lymphadenopathy. CARDIOVASCULAR: Regular rate and rhythm without murmurs, gallops, or rubs. RESPIRATORY: Breath sounds equal bilaterally. No accessory muscle use. GASTROINTESTINAL: Abdomen soft, non-tender, nondistended. MUSCULOSKELETAL: No cyanosis, or edema. BACK: Nontender without obvious deformity. No CVA tenderness. Laboratory Laboratory Tests Test 02/06/18 03:48 Blood Urea Nitrogen 19 MG/DL Creatinine 0.91 MG/DL Random Glucose 143 MG/DL Calcium Level 8.7 MG/DL Magnesium Level 2.4 MG/DL Sodium Level 139 MEQ/L Potassium Level 4.4 MEQ/L Chloride Level 97 MEQ/L Carbon Dioxide Level 34.2 MEQ/L Anion Gap 8 MEQ/L Estimat Glomerular Filtration Rate 87 ML/MIN Assessment and Plan Problem List: (1) S/P CABG (coronary artery bypass graft) ICD Codes: Z95.1 - Presence of aortocoronary bypass graft (2) Chest pain ICD Codes: R07.9 - Chest pain Status: Acute (3) Bronchitis ICD Codes: J40 - Bronchitis Status: Acute (4) CAD (coronary artery disease) ICD Codes: I25.10 - CAD (coronary artery disease) Status: Acute (5) ST elevation myocardial infarction (STEMI) of anterior wall ICD Codes: I21.09 - ST elevation myocardial infarction (STEMI) of anterior wall Status: Acute (6) Acute systolic CHF (congestive heart failure) ICD Codes: I50.21 - Acute systolic CHF (congestive heart failure) Status: Acute (7) Tobacco abuse ICD Codes: Z72.0 - Tobacco use (8) NSTEMI (non-ST elevated myocardial infarction) ICD Codes: I21.4 - Non-ST elevation (NSTEMI) myocardial infarction (9) COPD (chronic obstructive pulmonary disease) ICD Codes: J44.9 - Chronic obstructive pulmonary disease, unspecified Assessment and Plan 1.) NSTEMI - pod# 4, cabg, requiring nc O2, o/w doing well, continue aspirin, lipitor 40 mg hs, metoprolol; chest tubes out Davi Brown MD February 06, 2018 11:23
== END 2018-02-06 16:04 | disposition home health service (06) | DRG 233 ==
LOC: NEPC 07:45 → NEDA 09:42 → HCVI 13:25 → HCPC 02-03 09:53
PROVIDERS: ADMIT Thoracic Surgery (Cardiothoracic Vascular Surgery); ATTEND Thoracic Surgery (Cardiothoracic Vascular Surgery)
PROC: 021009W Bypass Coronary Artery, One Artery from Aorta with Autologous Venous Tissue, Open Approach (ICD-10-PCS; 2018-02-02)
PROC: 06BQ4ZZ Excision of Left Saphenous Vein, Percutaneous Endoscopic Approach (ICD-10-PCS; 2018-02-02)
PROC: B246ZZ4 Ultrasonography of Right and Left Heart, Transesophageal (ICD-10-PCS; 2018-02-02)
PROC: 0T9B70Z Drainage of Bladder with Drainage Device, Via Natural or Artificial Opening (ICD-10-PCS; 2018-02-02)
PROC: 5A1221Z Performance of Cardiac Output, Continuous (ICD-10-PCS; 2018-02-02)
PROC: B2111ZZ Fluoroscopy of Multiple Coronary Arteries using Low Osmolar Contrast (ICD-10-PCS; 2018-02-02)
PROC: B2151ZZ Fluoroscopy of Left Heart using Low Osmolar Contrast (ICD-10-PCS; 2018-02-02)
PROC: 02100Z9 Bypass Coronary Artery, One Artery from Left Internal Mammary, Open Approach (ICD-10-PCS; principal; 2018-02-02 11:45)
PROC: 4A023N7 Measurement of Cardiac Sampling and Pressure, Left Heart, Percutaneous Approach (ICD-10-PCS; 2018-02-02 14:03)
DX: I21.09 ST elevation (STEMI) myocardial infarction involving other coronary artery of anterior wall (principal); I50.21 Acute systolic (congestive) heart failure; D75.1 Secondary polycythemia; F32.9 Major depressive disorder, single episode, unspecified; E78.5 Hyperlipidemia, unspecified; I25.110 Atherosclerotic heart disease of native coronary artery with unstable angina pectoris; I25.2 Old myocardial infarction; Z95.5 Presence of coronary angioplasty implant and graft; Z79.82 Long term (current) use of aspirin; Z87.891 Personal history of nicotine dependence; F41.9 Anxiety disorder, unspecified; K21.0 Gastro-esophageal reflux disease with esophagitis; R73.9 Hyperglycemia, unspecified; Z82.49 Family history of ischemic heart disease and other diseases of the circulatory system; Z80.41 Family history of malignant neoplasm of ovary; J44.9 Chronic obstructive pulmonary disease, unspecified; R06.2 Wheezing
CPT/HCPCS: 36430; 71045; 76937; 80048; 80053; 80061; 80076; 81001; 82550; 82668; 82948; 83690; 83735; 83880; 84484; 85002; 85014; 85025; 85027; 85610; 85730; 86850; 86900; 86901; 86920; 87086; 87641; 93005; 93306; 93318; 93458; 93880; 94002; 94150; 94618; 94640; 94664; 94667; 94668; 96365; 96366; 96368; 96375; 99152; C1769; C1893; C9113; J0131; J0282; J0690; J1644; J1817; J1885; J1940; J2150; J2250; J2270; J2370; J2405; J2440; J2710; J2720; J2920; J2930; J3010; J3370; J3475; J3480; J7040; J7050; J7120; P9016; P9047; Q9967

== ENCOUNTER → 2018-02-23 | Outpatient (CLI) | payer SELFPAY ==
[~2018-02-23] MED LIST changes: -ALPR.25 PO; +AMIO200T PO; -ASPI325T PO; +ASPI81 PO; -CARV6.25 PO; +DOCU1CAP39 PO; +FISHOIL PO; -LISI-357 PO; +LOVA20TA PO; +LOVA40TA PO; -MAGN250T13 PO; +MEDR4PAK PO; +METO25TA3 PO; +OXYC1TAB63 PO; -PLAV75TA PO; -PRAV40TA2 PO; +THERM PO; +ZITH250T PO
[2018-02-23 12:17] LABS: HEMATOCRIT 47.7 % (39.0-51.0); HEMOGLOBIN 16.6 GM/DL (13.0-17.0); MEAN CELL VOLUME 94.6 FL (80.0-100.0); MEAN CORPUSCULAR HGB CONC 34.9 % (32.0-36.0); MEAN PLATELET VOLUME 7.9 FL (7.0-11.0); PLATELET COUNT 240 TH/MM3 (150-450); RED BLOOD COUNT 5.04 MIL/MM3 (4.50-5.90); RED CELL DISTRIBUTION WIDTH 14.2 % (11.6-17.2); WHITE BLOOD COUNT 8.7 TH/MM3 (4.0-11.0)
[2018-02-23 12:36] LABS: BICARBONATE 28.8 MEQ/L (21.0-32.0); CALCIUM 9.2 MG/DL (8.5-10.1); CREATININE 0.96 MG/DL (0.60-1.30)
--- NOTE | 2018-02-23 12:53 | RADRPT ---
EXAM DATE: 02/23/2018 12:32 PM EDT AGE/SEX: 52 years / Male INDICATIONS: Follow up post CABG. CLINICAL DATA: This is the patient's initial encounter. Patient reports that signs and symptoms have been present for 3 weeks and indicates a pain score of 0/10. MEDICAL/SURGICAL HISTORY: . myocardial infarction. Coronary artery stent. CABG. cardiac cath . COMPARISON: [facility] [place], CHEST SINGLE AP, 02/05/2018. . FINDINGS: The lungs are clear without infiltrate, nodule, or mass. There is no appreciable pleural effusion for technique. Heart and mediastinum are unremarkable. There is evidence for prior median sternotomy. CONCLUSION: No acute cardiopulmonary disease. Electronically signed by: Neftali Amaro MD 02/23/2018 12:51 PM EDT
== END ==
LOC: CLAB 11:27
PROVIDERS: ATTEND Nurse Practitioner
DX: Z95.1 Presence of aortocoronary bypass graft (principal)
CPT/HCPCS: 36415; 71046; 80048; 85027

== ENCOUNTER 2018-04-15 11:15 | Inpatient (IN) ==
[2018-04-15] MEDS ORDERED: MethylPREDNISolone Sod Succinate Inj 125 MG/2 ML Vial IV.PUSH ONE (11:55)
--- NOTE | 2018-04-15 12:08 | ED ---
HPI General Chief complaint: Chest Pain Stated complaint: Chest Complaint Time Seen by Provider: 04/15/18 11:44 Source: patient and family Mode of arrival: ambulatory Limitations: no limitations History of Present Illness HPI narrative: Patient is a 52-year-old male presenting to the emergency department for evaluation of midsternal chest pain that radiates to his shoulder blades and right anterior chest wall. Patient states it started Thursday afternoon, after the pain started he presented to the emergency department and was diagnosed with pneumonia, he was prescribed Levaquin and albuterol inhaler. He reports compliance with Levaquin but did not fill the prescription for the albuterol inhaler due to cost. He states this morning at 7 AM when he awoke the pain got worse and has persisted since that time. Patient denies any diaphoresis, fever, chills, shortness of breath. He does report increased chest congestion and wheezing. He denies any recent injury or trauma. Patient reports a past medical history significant for 3 previous heart attacks with subsequent coronary artery bypass graft surgery. Symptom onset was gradual, symptoms are moderate nature. There are no alleviating factors. Symptoms are somewhat exacerbated with movement. Patient is on metoprolol and takes a baby aspirin daily. Patient had been a former smoker for 40 years but recently quit. He states he was never diagnosed with COPD. Onset (ago): day(s) (5) Location: chest and back Radiation: back Severity: moderate Severity scale (1-10): 3 Quality: aching Pain Consistency: constant Relieving factors: none Exacerbating factors: movement Associated symptoms: denies other symptoms Related Data Home Medications Medication Instructions Recorded Confirmed aspirin [Aspir-Low] 81 mg PO DAILY 04/10/18 04/10/18 metoprolol tartrate 12.5 mg PO BID 04/10/18 04/10/18 Previous Rx's Medication Instructions Recorded ipratropium bromide [Atrovent HFA] 1 inh INHALATION Q6H PRN #12.9 g 04/11/18 levofloxacin [Levaquin] 500 mg PO DAILY 7 Days #7 tab 04/11/18 Allergies Allergy/AdvReac Type Severity Reaction Status Date / Time No Known Allergies Allergy Verified 04/10/18 20:08 Review of Systems Except as stated in HPI: all other systems reviewed are negative [facility] Medical History Medical History Hypercholesteremia (Acute) Hypertension (Acute) Myocardial infarction (Acute) Surgical History Surgical History H/O heart artery stent (Acute) S/P CABG x 2 (Acute) Social History Social History Substance History: No History of Abuse Second Hand Smoke Exposure: No Smoking Status: Former smoker Tobacco Type: Cigarettes How Often Do You Have a Drink Containing Alcohol: 2 to 4 times a month Recent Travel in [facility] within the Last 8 Weeks: No Recent Out of Country Travel within the Last 8 Weeks: No Immunization History Tetanus Immunization: Unsure Hx Influenza Vaccine This Season: Yes Exam Narrative Exam Narrative: GENERAL: Overweight, well-developed, alert male. Presenting in no acute distress. SKIN: Focused skin assessment warm/dry. HEAD: Atraumatic. Normocephalic. EYES: Pupils equal and round. No scleral icterus. No injection or drainage. ENT: No nasal bleeding or discharge. Mucous membranes pink and moist. NECK: Trachea midline. No JVD. CARDIOVASCULAR: Regular rate and rhythm. No murmur appreciated. RESPIRATORY: No accessory muscle use. Coarse breath sounds in bilateral lower lung bases, expiratory wheezing throughout, worse on the right than the left. GASTROINTESTINAL: Abdomen soft, non-tender, nondistended. Hepatic and splenic margins not palpable. MUSCULOSKELETAL: No obvious deformities. No clubbing. No cyanosis. No edema. NEUROLOGICAL: Awake and alert. No obvious cranial nerve deficits. Motor grossly within normal limits. Normal speech. PSYCHIATRIC: Appropriate mood and affect; insight and judgment normal. Course Initial Documented Vital Signs Temperature 98.5 F 04/15/18 11:33 Pulse Rate 60 04/15/18 11:33 Respiratory Rate 20 04/15/18 11:33 Blood Pressure 145/81 H 04/15/18 11:33 Pulse Oximetry 97 04/15/18 11:33 Last Documented Vital Signs Temperature 98.5 F 04/15/18 11:33 Pulse Rate 59 L 04/15/18 13:36 Respiratory Rate 18 04/15/18 13:36 Blood Pressure 152/85 H 04/15/18 13:36 Pulse Oximetry 95 04/15/18 13:36 Medical Decision Making ART Attestation ART supervised visit: Yes Attestation: I, Dr. Wise, have reviewed the advance practice practitioner's documentation and am in agreement, met with the patient face to face, made the diagnosis, and the medical decision making was done by me. *My assessment and Findings: Patient with atypical right-sided pain. Patient status post coronary artery bypass graft 2 months prior. Troponin is 0.25. Patient does have history consistent with bronchitis more so than ACS. He has been given 3 further baby aspirin and has an inch of Nitropaste on his skin. He will be admitted and his troponin will be trended. Case was discussed with Dr. Horton, [facility], who agrees with the above plan. MDM Narrative Medical decision making narrative: Patient is a 52-year-old male presenting for the second time for evaluation of chest pain. Initial workup on Thursday revealed a pneumonia in the left lower lobe. Patient's been compliant with Levaquin. His vital signs are stable and he is afebrile. A CT of the aorta to rule out dissection on Thursday was negative. Cardiac enzymes were also negative at that time. Labs and imaging ordered and pending. IV access was established, patient was placed on telemetry monitoring continuous pulse oximetry. Patient will be given a DuoNeb treatment now. Will reassess. As reviewed, there were no acute abnormalities other than the elevated troponin at 0.25. Patient had no improvement in his symptoms with the DuoNeb treatment. Patient was given an additional 243 mg of aspirin. Nitroglycerin paste was placed on patient's chest wall. Patient was advised on findings and plan of care. Patient was admitted to Dr. Horton. Patient was also seen and evaluated by my attending physician. BNP has not resulted. The labs stated that they have to send samples to [facility] [place] and the stat supervisor network control operators has 2 hours to respond. Patient will be admitted with a diagnosis of NSTEMI. Differential Diagnosis Differential Diagnosis: Pneumonia versus metabolic abnormality versus cardiac arrhythmia versus ACS versus [place] versus other Medical Records Medical records reviewed: Yes I reviewed the patient's medical records. Lab Data Result diagrams: 04/15/18 12:08 04/15/18 12:08 Lab Results 04/15/18 04/15/18 04/15/18 Range/Units 12:08 12:08 12:08 WBC 9.7 (4.0-11.0) th/mm3 RBC 5.23 (4.50-5.90) mil/mm3 Hgb 17.9 H (13.0-17.0) gm/dL Hct 50.2 (39.0-51.0) % MCV 96.1 (80.0-100.0) fL MCH 34.3 H (27.0-34.0) pg MCHC 35.7 (32.0-36.0) % RDW 13.7 (11.6-17.2) % Plt Count 174 (150-450) th/mm3 MPV 9.0 (7.0-11.0) fL Neut % (Auto) 76.5 H (16.0-70.0) % Lymph % (Auto) 16.3 (9.0-44.0) % [place] % (Auto) 5.3 (0.0-8.0) % Eos % (Auto) 1.4 (0.0-4.0) % Baso % (Auto) 0.5 (0.0-2.0) % Neut # (Auto) 7.5 (1.8-7.7) th/mm3 Lymph # (Auto) 1.6 (1.0-4.8) th/mm3 [place] # (Auto) 0.5 (0.0-0.9) th/mm3 Eos # (Auto) 0.1 (0.0-0.4) th/mm3 Baso # (Auto) 0.1 (0.0-0.2) th/mm3 WBC Differential . Differential Comment Auto diff final PT 10.8 (9.8-11.6) sec INR 1.1 Ratio APTT 30.4 H (24.3-30.1) sec Sodium 138 (136-145) meq/L Potassium 4.3 (3.5-5.1) meq/L Chloride 104 (98-107) meq/L Carbon Dioxide 24.6 (21.0-32.0) meq/L Anion Gap 9 (5-15) meq/L BUN 18 (7-18) mg/dL Creatinine 0.87 (0.60-1.30) mg/dL Estimated GFR Greater than 89 (>89) mL/min Random Glucose 97 (74-106) mg/dL Calcium 9.2 (8.5-10.1) mg/dL Magnesium 2.0 (1.5-2.5) mg/dL Total Bilirubin 0.3 (0.2-1.0) mg/dL AST 29 (15-37) U/L ALT 52 (12-78) U/L Alkaline Phosphatase 76 (45-117) U/L Total Creatine Kinase 66 (39-308) U/L Troponin I 0.25 H (0.02-0.05) ng/mL Total Protein 8.2 (6.4-8.2) g/dL Albumin 3.9 (3.4-5.0) g/dL Imaging Data Radiologist's impression: Chest X-Ray 04/15/18 11:55 CONCLUSION: No acute cardiopulmonary process. Discharge Plan Discharge Disposition Patient Disposition: 30 Still Patient Discharge Condition Condition: Stable Discharge Details Diagnosis: Acute non-ST elevation myocardial infarction (NSTEMI), Bronchitis, Coronary artery disease Physicians Team ED Provider: George Wise ED Midlevel Provider: Norma Calix Primary Care Provider: Primary Care Brittany Berkowitz Attending Provider: Kota Horton Other Providers: Davi Brown Discharge Interventions Interventions: Vital Signs Last Done: 04/15/18 13:36 Status ED Status: Admitted Patient
[2018-04-15 12:40] LABS: Baso # (Auto) 0.1 th/mm3 (0.0-0.2); Baso % (Auto) 0.5 % (0.0-2.0); Eos # (Auto) 0.1 th/mm3 (0.0-0.4); Eos % (Auto) 1.4 % (0.0-4.0); Hematocrit 50.2 % (39.0-51.0); Hemoglobin 17.9 gm/dL (13.0-17.0); Lymph # (Auto) 1.6 th/mm3 (1.0-4.8); Lymph % (Auto) 16.3 % (9.0-44.0); Mean Corpuscular HGB Conc 35.7 % (32.0-36.0); Mean Corpuscular Hemoglobin 34.3 pg (27.0-34.0); Mean Corpuscular Volume 96.1 fL (80.0-100.0); Mono # (Auto) 0.5 th/mm3 (0.0-0.9); Mono % (Auto) 5.3 % (0.0-8.0); Neut # (Auto) 7.5 th/mm3 (1.8-7.7); Neut % (Auto) 76.5 % (16.0-70.0); Platelet Count 174 th/mm3 (150-450); Red Blood Count 5.23 mil/mm3 (4.50-5.90); Red Cell Distribution Width 13.7 % (11.6-17.2); White Blood Count 9.7 th/mm3 (4.0-11.0)
[2018-04-15 12:51] LABS: Activated Partial Thrombo Time 30.4 sec (24.3-30.1); INR 1.1 Ratio; Prothrombin Time 10.8 sec (9.8-11.6)
--- NOTE | 2018-04-15 13:00 | XR ---
EXAM DATE: 04/15/2018 12:41 PM EDT AGE/SEX: 52 years / Male INDICATIONS: . Chest pain. CLINICAL DATA: This is the patient's initial encounter. Patient reports that signs and symptoms have been present for 1 day and indicates a pain score of 7/10. MEDICAL/SURGICAL HISTORY: None. CABG. COMPARISON: [facility], CHEST 2V PA&LAT, 04/10/2018. . FINDINGS: The patient is status post sternotomy. The heart size is normal. The lungs are grossly clear. CONCLUSION: No acute cardiopulmonary process. Electronically signed by: Ezequiel Ramos MD 04/15/2018 12:58 PM EDT
[2018-04-15 13:01] LABS: Albumin 3.9 g/dL (3.4-5.0); Anion Gap 9 meq/L (5-15); Aspartate Aminotransferase 29 U/L (15-37); Blood Urea Nitrogen 18 mg/dL (7-18); Calcium 9.2 mg/dL (8.5-10.1); Carbon Dioxide 24.6 meq/L (21.0-32.0); Chloride 104 meq/L (98-107); Glomerular Filtration Rate Greater Than 89 mL/min (>89); Glucose,Random 97 mg/dL (74-106); Potassium 4.3 meq/L (3.5-5.1); Sodium 138 meq/L (136-145)
[2018-04-15 13:02] LABS: Alanine Aminotransferase 52 U/L (12-78)
[2018-04-15 13:06] LABS: Alkaline Phosphatase 76 U/L (45-117); Total Protein 8.2 g/dL (6.4-8.2); Troponin I 0.25 ng/mL (0.02-0.05)
[2018-04-15 13:07] LABS: Creatine Kinase 66 U/L (39-308)
[2018-04-15] MEDS ORDERED: Bisacodyl 10 MG Supp RECTAL PRN (13:43)
[2018-04-15] MEDS ORDERED: Acetaminophen 325 MG Tablet PO PRN (13:43)
[2018-04-15] MEDS ORDERED: Heparin Drip 25,000 UNIT/250 ML BAG IV.CONT PRN (15:21)
--- NOTE | 2018-04-15 15:41 | P.HP ---
History of Present Illness Service: Hospitalist Primary Care Physician: No Primary Care Physician Chief Complaint: Chest pain, upper back pain History of Present Illness: Mr. Lewis is a pleasant 52-year-old male with a history of recent CABG 2 (January 2018) who presents to the emergency department due to right-sided anterior chest wall discomfort as well as upper back pain between his shoulder blades. He was evaluated in the emergency department on 04/10/2018 due to upper back pain. He underwent a CTA study which did not reveal any aortic dissection but revealed possible pneumonia. Patient was subsequently discharged home on . On 04/10/2018 his troponin was 0.02. Due to right- sided chest pain and upper back pain he decided to come back to the emergency department. On arrival his troponin is 0.25. EKG does not show any ST changes. Patient denies any cough, abdominal pain, fever or chills. No changes in bowel or bladder habits. - Diagnosis (1) Acute non-ST elevation myocardial infarction (NSTEMI) (2) Coronary artery disease Inpatient Certification: I certify that the inpatient services were ordered in accordance with Medicare regulations governing the order. This includes certification that hospital inpatient services are reasonable and necessary and in the case of services not specified as inpatient-only under 42 CFR 419.22(n), that they are appropriately provided as inpatient services in accordance to with the 2-midnight benchmark under 43 CFR 412.3(e) Estimated Total Length of Stay (Days): 2 Plans for Post Hospital Care: Home Review of Systems All other systems reviewed negative except as stated in HPI [facility] - History History Provided By: Patient - Medical History Medical History: Medical History (Last Reviewed 04/15/18 @ 12:06 by JOSEPHINE Hope) Hypercholesteremia Hypertension Myocardial infarction - Surgical History Surgical History: Surgical History (Last Reviewed 04/15/18 @ 12:06 by JOSEPHINE Hope) H/O heart artery stent S/P CABG x 2 - Tobacco History Second Hand Smoke Exposure: No Tobacco Use In Past 30 Days: No Smoking Status: Former smoker Tobacco Type: Cigarettes - Alcohol History How Often Do You Have a Drink Containing Alcohol: 2 to 4 times a month - Substance Use History Substance History: No History of Abuse - Travel History Recent Travel in the [place] Within the Last 8 Weeks: No Recent Travel Out of the Country Within the Last 8 Weeks: No - Immunization History Tetanus Immunization: Unsure Hx Influenza Vaccine This Season: Yes Medications and Allergies Active Medications: Active Medications Acetaminophen (Tylenol) 650 mg PO Q4H PRN PRN Reason: Headache, fever, pain 1-4 Al Hydroxide/Mg Hydroxide (Milk Of Magnesia Liq) 30 ml PO Q12H PRN PRN Reason: Mild Constipation Bisacodyl (Dulcolax Supp) 10 mg RECTAL DAILY PRN PRN Reason: SEVERE CONSITIPATION Heparin Sodium/Dextrose (Heparin/D5w 25,000 U/250 Ml) 25,000 unit in 250 mls @ 0 mls/hr IV.CONT TITRATE PRN; Protocol PRN Reason: Per Protocol Lactulose (Lactulose Liq) 30 ml PO DAILY PRN PRN Reason: SEVERE CONSITIPATION Sennosides (Senokot) 17.2 mg PO Q12H PRN PRN Reason: Moderate Constipation Sodium Chloride (Ns Flush) 2 ml IV.FLUSH PRN PRN PRN Reason: FLUSH AFTER USING IV ACCESS Allergies Allergy/AdvReac Type Severity Reaction Status Date / Time No Known Allergies Allergy Verified 04/10/18 20:08 Home Medications Medication Instructions Recorded Confirmed Type aspirin [Aspir-Low] 81 mg PO DAILY 04/10/18 04/10/18 History metoprolol tartrate 12.5 mg PO BID 04/10/18 04/10/18 History Exam Vital signs: Vital Signs 04/15/18 11:33 04/15/18 11:37 04/15/18 12:52 Temperature 98.5 F Pulse Rate 60 64 Respiratory Rate 20 18 Blood Pressure 145/81 H 165/82 H Pulse Oximetry 97 97 98 04/15/18 12:58 04/15/18 13:29 04/15/18 13:36 Temperature Pulse Rate 79 58 L 59 L Respiratory Rate 18 20 18 Blood Pressure 167/76 H 152/85 H Pulse Oximetry 98 95 Intake & Output 04/14/18 04/15/18 04/15/18 18:59 06:59 18:59 Weight 99.79 kg Narrative: GENERAL: This is a well-nourished, well-developed patient, in no apparent distress. SKIN: No rashes, ecchymoses or lesions. Warm and dry. HEAD: Atraumatic. Normocephalic. No temporal or scalp tenderness. EYES: Pupils equal round and reactive. No injection or drainage. ENT: Nose without bleeding, purulent drainage or septal hematoma. Airway patent. NECK: Trachea midline. No lymphadenopathy. Supple, nontender, no meningeal signs. CARDIOVASCULAR: Regular rate and rhythm without murmurs, gallops, or rubs. No JVD. RESPIRATORY: Clear to auscultation. Breath sounds equal bilaterally. No wheezes , rales, or rhonchi. GASTROINTESTINAL: Abdomen soft, non-tender, nondistended. No guarding. MUSCULOSKELETAL: Extremities without clubbing, cyanosis, or edema. NEUROLOGICAL: Awake and alert. Cranial nerves II through XII intact. No focal neurological deficits. Normal speech. Results - Labs CBC & Chem 7: 04/15/18 12:08 04/15/18 12:08 Labs: Laboratory Results - last 24 hr 04/15/18 04/15/18 04/15/18 12:08 12:08 12:08 WBC 9.7 RBC 5.23 Hgb 17.9 H Hct 50.2 MCV 96.1 MCH 34.3 H MCHC 35.7 RDW 13.7 Plt Count 174 MPV 9.0 Neut % (Auto) 76.5 H Lymph % (Auto) 16.3 [place] % (Auto) 5.3 Eos % (Auto) 1.4 Baso % (Auto) 0.5 Neut # (Auto) 7.5 Lymph # (Auto) 1.6 [place] # (Auto) 0.5 Eos # (Auto) 0.1 Baso # (Auto) 0.1 WBC Differential . Differential Comment Auto diff final PT 10.8 INR 1.1 APTT 30.4 H Sodium 138 Potassium 4.3 Chloride 104 Carbon Dioxide 24.6 Anion Gap 9 BUN 18 Creatinine 0.87 Estimated GFR Greater than 89 Random Glucose 97 Calcium 9.2 Magnesium 2.0 Total Bilirubin 0.3 AST 29 ALT 52 Alkaline Phosphatase 76 Total Creatine Kinase 66 Troponin I 0.25 H B-Natriuretic Peptide Total Protein 8.2 Albumin 3.9 04/15/18 12:08 WBC RBC Hgb Hct MCV MCH MCHC RDW Plt Count MPV Neut % (Auto) Lymph % (Auto) [place] % (Auto) Eos % (Auto) Baso % (Auto) Neut # (Auto) Lymph # (Auto) [place] # (Auto) Eos # (Auto) Baso # (Auto) WBC Differential Differential Comment PT INR APTT Sodium Potassium Chloride Carbon Dioxide Anion Gap BUN Creatinine Estimated GFR Random Glucose Calcium Magnesium Total Bilirubin AST ALT Alkaline Phosphatase Total Creatine Kinase Troponin I B-Natriuretic Peptide 53 Total Protein Albumin - Imaging Impressions Chest X-Ray 04/15/18 11:55 CONCLUSION: No acute cardiopulmonary process. Caprini VTE Risk Assessment Caprini VTE Risk Assessment: Moderate/High Risk (score >= 2) Caprini Risk Assessment Model: Point Value = 1 Point Value = 2 Point Value = 3 Point Value = 5 Age 41-60 Minor surgery BMI > 25 kg/m2 Swollen legs Varicose veins or History of unexplained or recurrent spontaneous Oral contraceptives or hormone replacement Sepsis (< 1 month) Serious lung disease, including pneumonia (< 1 month) Abnormal pulmonary function Acute myocardial infarction Congestive heart failure (< 1 month) History of inflammatory bowel disease Medical patient at bed rest Age 61-74 Arthroscopic surgery Major open surgery (> 45 min) Laparoscopic surgery (> 45 min) Malignancy Confined to bed (> 72 hours) Immobilizing plaster cast Central venous access Age >= 75 History of VTE Family history of VTE Factor V Leiden Prothrombin [id number] Lupus anticoagulant Anticardiolipin antibodies Elevated serum homocysteine Heparin-induced thrombocytopenia Other congenital or acquired thrombophilia Stroke (< 1 month) Elective arthroplasty Hip, pelvis, or leg fracture Acute spinal cord injury (< 1 month) Prophylaxis Regimen: Total Risk Factor Score Risk Level Prophylaxis Regimen 0-1 Low Early ambulation 2 Moderate Order ONE of the following: *Sequential Compression Device (SCD) *Heparin 5000 units SQ BID 3-4 Higher Order ONE of the following medications: *Heparin 5000 units SQ TID *Enoxaparin/Lovenox 40 mg SQ daily (WT < 150 kg, CrCl > 30 mL/min) *Enoxaparin/Lovenox 30 mg SQ daily (WT < 150 kg, CrCl > 10-29 mL/min) *Enoxaparin/Lovenox 30 mg SQ BID (WT < 150 kg, CrCl > 30 mL/min) AND/OR *Sequential Compression Device (SCD) 5 or more Highest Order ONE of the following medications: *Heparin 5000 units SQ TID (Preferred with Epidurals) *Enoxaparin/Lovenox 40 mg SQ daily (WT < 150 kg, CrCl > 30 mL/min) *Enoxaparin/Lovenox 30 mg SQ daily (WT < 150 kg, CrCl > 10-29 mL/min) *Enoxaparin/Lovenox 30 mg SQ BID (WT < 150 kg, CrCl > 30 mL/min) AND *Sequential Compression Device (SCD) Assessment and Plan - Assessment (1) Acute non-ST elevation myocardial infarction (NSTEMI) Code(s): I21.4 - Non-ST elevation (NSTEMI) myocardial infarction Status: Acute (2) Coronary artery disease Code(s): I25.10 - Atherosclerotic heart disease of [place] coronary artery without angina pectoris Status: Acute - Plan Mr. Lewis is a pleasant 52-year-old male with a history of recent CABG 2 who presents to the emergency department due to persistent upper back pain as well as new onset right-sided chest pain. His troponin on 04/10/2018 was 0.02. However upon arrival on 04/15/2018 his troponin is 0.25. Cardiology was consulted. Acute non-ST elevation myocardial infarction Coronary artery disease History of CABG 2 in January 2018 -We will consult cardiology. Discussed with Dr. Brown who essentially performed cardiac cath in January as well. -Start patient on heparin drip. Cardiac cath tomorrow. -Continue aspirin 81 mg daily, Beta keith. -Patient previously was not able to tolerate lovastatin. -I discussed with patient and his at length. Will start Lipitor 20 mg tonight. If he is not able to tolerate will discontinue statin. Hypertension -BP is somewhat elevated - last BP 152/85. -will change metoprolol to Carvedilol 6.25 BID for both heart rate and BP control. If needed, consider adding Amlodipine. Full code. Heparin Drip. (2) Coronary artery disease Qualifiers: Coronary Disease-Associated Artery/Lesion type: unspecified vessel or lesion type [place] vs. transplanted heart: [place] heart
--- NOTE | 2018-04-15 18:32 | MB ---
cc: Davi Brown MD DATE: 04/15/2018 HISTORY OF PRESENT ILLNESS: Marcus is a very pleasant 52-year-old gentleman status post CABG in 01/2018 who presents with chest pain beginning yesterday. Currently, chest pain free. Otherwise, denies any fevers, chills, cough, GI or bleeding, PND or orthopnea, syncope or dizziness. PAST MEDICAL HISTORY: Includes hyperlipidemia, hypertension, myocardial infarction, history of percutaneous coronary intervention. SOCIAL HISTORY: He is still smoking at times. He drinks alcohol occasionally. MEDICATIONS IN THE HOSPITAL: 1. Aspirin 81 mg a day. 2. Heparin bolus and drip. PHYSICAL EXAMINATION: VITAL SIGNS: Blood pressure 152/85, pulse 59, respiratory rate of 18. GENERAL: He is alert and oriented x 3, in no acute distress. NECK: Supple. No JVD. No bruit. CARDIOVASCULAR: S1, S2. No murmurs or gallops. LUNGS: Clear to auscultation bilaterally. ABDOMEN: Soft, nontender, and nondistended with positive bowel sounds. EXTREMITIES: No lower extremity edema. DIAGNOSTIC STUDIES: EKG shows normal sinus rhythm at 60 beats per minute, nonspecific ST-T wave changes. T-wave inversion, which is asymmetric in V1, V2. LABORATORY DATA: White count 9.7, hemoglobin 17.9, hematocrit 50.2, platelet count 174. INR 1.1. Sodium 138, potassium 4.3, chloride 104, bicarbonate 24.6, BUN 18, creatinine 0.87. Troponin is 0.25, followed by 1.65. BNP 53. DIAGNOSES: 1. Iyc-LG-kzrhewftq myocardial infarction. 2. Tobacco abuse. PLAN: The patient has been started on aspirin and heparin. Plan is for left heart catheterization on 04/16/2018. The patient is currently chest pain free. I strongly recommend smoking cessation. Davi Brown MD AWC/KD , 06:14 PM , 06:20 PM
[2018-04-15 19:13] LABS: Hemoglobin 18.4 gm/dL (13.0-17.0); Mean Corpuscular Hemoglobin 34.5 pg (27.0-34.0); Mean Corpuscular Volume 95.6 fL (80.0-100.0); Mean Platelet Volume 8.5 fL (7.0-11.0); Platelet Count 167 th/mm3 (150-450); Red Blood Count 5.34 mil/mm3 (4.50-5.90); Red Cell Distribution Width 13.8 % (11.6-17.2); White Blood Count 8.6 th/mm3 (4.0-11.0)
[2018-04-15 19:17] LABS: Mean Corpuscular HGB Conc 36.1 % (32.0-36.0)
[2018-04-15] MEDS ORDERED: Metoprolol Tartrate 25 MG Tablet PO SCH (21:00)
[2018-04-15] MEDS: Carvedilol 6.25 MG Tablet PO SCH (21:21)
[2018-04-16 00:30] LABS: Activated Partial Thrombo Time 37.1 sec (24.3-30.1); INR 1.1 Ratio
[2018-04-16 07:11] LABS: Hematocrit 48.8 % (39.0-51.0); Hemoglobin 16.8 gm/dL (13.0-17.0); Mean Corpuscular HGB Conc 34.4 % (32.0-36.0); Mean Corpuscular Hemoglobin 32.8 pg (27.0-34.0); Mean Corpuscular Volume 95.1 fL (80.0-100.0); Mean Platelet Volume 9.3 fL (7.0-11.0); Platelet Count 174 th/mm3 (150-450); Red Blood Count 5.13 mil/mm3 (4.50-5.90); Red Cell Distribution Width 13.7 % (11.6-17.2); White Blood Count 15.5 th/mm3 (4.0-11.0)
[2018-04-16 08:29] VITALS: RESP 18
--- NOTE | 2018-04-16 08:38 | ECG ---
Date Performed: 04/15/2018 Time Performed: 22:11:06 PTAGE: 52 years EKG: Sinus bradycardia Poor R wave progression - probable normal variant Septal and lateral ST-T changes may be due to myocardial ischemia Low QRS voltages in precordial leads Abnormal ECG PREVIOUS TRACING : 04/15/2018 17.58 No significant change from previous tracing noted. DOCTOR: Buster Jeong Interpretating Date/Time 04/16/2018 08:36:44
--- NOTE | 2018-04-16 08:43 | ECG ---
Date Performed: 04/15/2018 Time Performed: 17:58:08 PTAGE: 52 years EKG: SINUS BRADYCARDIA MINIMAL ST DEPRESSION BORDERLINE ECG PREVIOUS TRACING : 04/15/2018 16.16 No significant change from previous tracing noted. DOCTOR: Buster Jeong Interpretating Date/Time 04/16/2018 08:42:39
--- NOTE | 2018-04-16 08:49 | ECG ---
Date Performed: 04/15/2018 Time Performed: 16:16:42 PTAGE: 52 years EKG: SINUS BRADYCARDIA MINIMAL ST DEPRESSION NONSPECIFIC HIGH LATERAL T WAVE ABNORMALITY BORDERL INE ECG PREVIOUS TRACING : 04/15/2018 11.56 No significant change from previous tracing noted. DOCTOR: Buster Jeong Interpretating Date/Time 04/16/2018 08:48:30
--- NOTE | 2018-04-16 09:16 | ECG ---
Date Performed: 04/15/2018 Time Performed: 11:56:03 PTAGE: 52 years EKG: Sinus rhythm NORMAL ECG NO PREVIOUS TRACING DOCTOR: Buster Jeong Interpretating Date/Time 04/16/2018 09:15:49
[2018-04-16] MEDS: Carvedilol 6.25 MG Tablet PO SCH ×2 (09:27→21:06)
[2018-04-16] MEDS ORDERED: Heparin/NS PF Inj 500 ML ONE (10:15)
[2018-04-16] MEDS ORDERED: Tirofiban Inj 12,500 MCG/250 ML PLAST..BAG ONE (10:15)
[2018-04-16] MEDS ORDERED: Heparin 10,000 UNITS/10 ML Vial (for IV use) ONE (10:15)
[2018-04-16] MEDS ORDERED: fentaNYL Citrate Inj 100 MCG/2 ML Ampul ONE (10:15)
[2018-04-16] MEDS ORDERED: Heparin/NS PF Inj 1,000 ML ONE (11:11)
--- NOTE | 2018-04-16 11:35 | CATHPROC ---
[employer] HIS Report Study Information Study Number Admission Scheduled Start Study Start [id number] Apr 15 2018 1:52PM 04/16/2018 Apr 16 2018 10:04AM [place] [facility] Cardiac Catheterization Admit Source Facility Department Other [facility] - Java Android Developer Physician and Clinical Staff Initial Davi Domingo Sales Branch Manager Diamond Chappell,RN Recorder Bri Davis ,RT(R) Scrub Prateek Renteria,RT(R) Procedures Performed Procedure Location (Site) Vessel Name Coronary Angiograms LCA Left Coronary Coronary Angiograms RCA Right Coronary Coronary Angiograms MUIR-LAD Left Coronary Coronary Angiograms SVG-OM CIRC L Heart Cath LV Gram-hand inj. LV LV Ventricle Stent MUIR Dist MUIR Wire insertion Fem Art (right) Femoral Art Equipment Time Artist Blacksmith Description Size Mfg Part Number Used/Scraped [id number] 11:07 [email or web address] CRITICAL CARE WIRE, ASAHI PROWATER 180CM 180CM Used *[id number] TRANSDUCER, TRUWAVE [id number] 10:07 NINO SKAGGS * Used W/STOCKCOCK *[id number] 538-460 *[id number] [phone] *[id number] 538-420 *[id number] 538-422 *[id number] 538-421 *[id number] 10:07 Niblitz BLANKET,WARM AIR CCL * Used *[id number] 10:07 [employer]litz PACK, CCL CUSTOM * Used *[id number] 10:07 ParaEngine PACER PEN, SKIN DUAL W/ RULER * Used *[id number] 11:17 MEDTRONIC STENT, 3.0 12 INTEGRITY 3.0 12 Used *[id number] 11:08 [employer] MEDICAL 30 MONE INDEFLATOR Used *[id number] 11:08 [employer] SHEATH, FR6.5 PRELUDE 11CM FR 6.5 038ACT Used *[id number] 10:07 [employer] MEDICAL WIRE, 3MMJ .035 180CM 180CM Used *[id number] 10:53 [employer] WIRE, EXCHANGE 260CM 3MMJ 260CM Used *[id number] 10:07 NAMIC MANIFOLD, 4 PORT * Used *[id number] 10:07 NYCOMED OMNIPAQUE, 350 MG, 150ML 150ML [id number] Used [id number] 10:07 TERUMO MEDICAL SHEATH, FR4 TERUMO (10CM) FR 4 Used *[id number] Equipment Model, Serial, Lot Number and Expiration Data Description Model Number Serial Number Lot Number Expiration Date STENT, 3.0 12 INTEGRITY [id number] 01-21-2020 History: Current Medications Medication Dosage/Unit Route Frequency Last Date/Time Taken Beta Tracee ASA History: Allergies Allergy Reaction No Known Allergies History: Risk Factors Family History of Hypertension Dyslipidemia Previous NM Previous Heart Failure Premature CAD Yes Yes Yes Yes No Prior Valve Prior PCI Prior PCIDate Prior CABG Prior CABGDate Surgery No Yes 10/15/2013 Yes 02/02/2018 Cerebrovascular Peripheral Artery Chronic Lung On Dialysis Diabetes Disease Disease Disease No No No Yes No History: Symptoms/Diagnosis Selection Items Chest pain History: CV Disease Selection Items Known CAD History: Stress Tests Stress or Imaging Studies Performed No History: Other Current Smoker Method Packs a Day Years Used Pack Years Yes Cigarettes 2 32 64 Labs Hgb (g/dl) Hct (%) WBC (l/cumm) Platelets (thousands) 11.60-17.00 35.00-51.00 4.00-11.00 150.00-450.00 16.8 48 15.1 174 Glucose (mg/dl) BUN (mg/dl) Creatinine (mg/dl) BUN:Creatinine (1:x) 74.00-106.00 7.00-18.00 0.50-1.30 10.00-20.00 97 18 0.8 22.5 Na (meq/l) K (meq/l) 136.00-145.00 3.50-5.10 138 4.3 INR (PTT:PT) 0.90-1.10 1.1 Troponin I (ng/ml) CPK (u/l) CPK-MB (ng/ML) 0.02-0.05 26.00-308.00 0.50-3.60 2.5 66 Not Drawn Medication Medication Total Dose (Bolus/Oral) Medication Total Dosage/Unit 1% XYLOCAINE 20 mL AGGRASTAT BOLUS 49 mL EFFIENT 60 mg FENTANYL 25 mcg HEPARIN 6800 units VERSED 1 mg Medications (Bolus/Oral) Medication Time Given Dosage/Unit Administered By Reason VERSED 04/16/2018 10:41:10 AM 1 mg Mrache, Diamond 1 mg VERSED given in lab by Diamond Chappell RN in Left Wrist via Peripheral IV. Ordered by Davi Brown. FENTANYL 04/16/2018 10:42:00 AM 25 mcg Diamond Chappell 25 mcg FENTANYL given in lab by Diamond Chappell RN via Peripheral IV. Ordered by Davi Brown. 1% XYLOCAINE 04/16/2018 10:43:01 AM 20 mL Davi Brown 20 mL 1% XYLOCAINE given in lab by Davi Brown in Right Groin via Subcutaneous. Ordered by Davi Burnham. HEPARIN 04/16/2018 11:07:38 AM 6800 units Diamond Chappell 6800 units HEPARIN given in lab by Diamond Chappell RN via Peripheral IV. Ordered by Daljit Brown AGGRASTAT BOLUS 04/16/2018 11:23:23 AM 49 mL Diamond Chappell 49 mL AGGRASTAT BOLUS given in lab by Diamond Chappell RN via Peripheral IV. Ordered by Hua Brown. EFFIENT 04/16/2018 11:32:13 AM 60 mg Diamond Chappell 60 mg EFFIENT given in lab by Diamond Chappell RN via Oral. Ordered by Davi Brown. Medication (Drip) Medication Time Given Dosage/Unit Concentration/Unit Diluent (ml) Solution AGGRASTAT DRIP 04/16/2018 11:25:30 AM 0.15 mcg/kg/min 12.5 mg 250 NaCl .9 0.15 mcg/kg/min AGGRASTAT DRIP given in lab by Diamond Chappell RN via Peripheral IV. Pump/Drip Flow = 17.68 ml/hr using NaCl .9 with a concentration of 12.5 mg in 250 ml. Ordered by Davi Brown. IV Solutions 04/16/2018 10:20:00 AM 50 mL (IV) NaCl .9 Patient arrived on IV Solutions in Left Wrist via Peripheral IV. Pump/Drip Flow using NaCl .9. Initial Case Assessment Cardiovascular HR NIBP 57 152/89 Edema Present Skin color Skin Mild Normal Warm Dry Circulatory - Right Pulses Dorsalis Pedis Femoral 2 2 Scale (0,1,2,3,4,d) Circulatory - Left Pulses Dorsalis Pedis Femoral 2 2 Scale (0,1,2,3,4,d) Circulatory - Lower Extremities Color Lower Right Color Lower Left Normal Normal Neurological State Oriented to time-place- Alert Moves all extremities person Respiration - General Respiration Rate SpO2 (%) (B/min) 9 98 Final Case Assessment Cardiovascular HR NIBP 57 152/89 Edema Present Skin color Skin Mild Normal Warm Dry Circulatory - Right Pulses Dorsalis Pedis Femoral 2 2 Scale (0,1,2,3,4,d) Circulatory - Left Pulses Dorsalis Pedis Femoral 2 2 Scale (0,1,2,3,4,d) Circulatory - Lower Extremities Color Lower Right Color Lower Left Normal Normal Neurological State Oriented to time-place- Alert Moves all extremities person Respiration - General Respiration Rate SpO2 (%) (B/min) 9 98 Chronological Log Time Study Chronological Log 10:15:19 Patient arrived via Bed. 10:15:20 Patient Name, D.O.B, / Armband Verified By R.N. 10:19:40 Consent signed by the physician and the patient and verified by the Java Android Developer staff. 10:19:41 Pre-op and post- op instructions given; patient acknowledges understanding of instructions. 10:19:43 Verbal Stimulation=2 Physical Stimulation=2 Airway=2 Respiration=2 TOTAL=8. (0=absent, 1=li mited, 2=present) 10:19:47 Patient has been NPO for More than 6Hrs. 10:19:47 Skin Breakdown- none per patient 10:19:52 Patient Warmer Placed on the Table. 10:19:56 Harpal Prominences Protected 10:19:59 A # 20 IV was noted in the Antecubital (right). Grade = 0 10:19:59 A # 20 IV was noted in the Wrist (left). Grade = 0 10:20:00 Patient arrived on IV Solutions in Left Wrist via Peripheral IV. Pump/Drip Flow using NaCl .9. 10:20:01 History and physical on the chart or being dictated. Assessment: Initial Case, HR=57 BPM, GBBQ=819/89 mmhg, Edema=Mild, Color=Normal, Skin = Warm, D ry Right Pulses: Brenton Ped=2, Femoral=2 Left Pulses: Brenton Ped=2, Femoral=2 10:20:03 Lower Right Extremities: Color=Normal Lower Left Extremities: Color=Normal Neurological: State=Alert, Ox3, NGO Respiration: Resp=9 B/min, SpO2=98 % Vitals capture started with the following parameters, Patient=Adult, Interval=5 min, Initial Pr hphxjc=754 mmHg, 10:20:54 Deflation Rate=5 mmHg, Cuff placed on Left Arm 10:21:25 Vitals capture stopped. Vitals capture started with the following parameters, Patient=Adult, Interval=5 min, Initial Pr oxrvms=928 mmHg, 10:22:11 Deflation Rate=5 mmHg, Cuff placed on Left Arm 10:23:25 HR=62 bpm, QQTI=119/89 mmhg, Resp=15 B/min 10:24:58 Bilateral groins prepped with 2% chlorhexidine, and draped after a 3 minute waiting time. 10:27:49 HR=65 bpm, TFEF=835/90 mmhg, SpO2=95.0 %, Resp=15 B/min, Pain=0, Vish=10, Wiggins=2 10:32:55 HR=57 bpm, BSUR=383/73 mmhg, SpO2=96.0 %, Resp=12 B/min, Pain=0, Vish=10, Wiggins=2 10:33:01 Heparin Dripped stopped at 10:05 10:33:50 Pressure channel 1 zeroed. 10:34:09 paged 10:34:17 MD responded 10:37:25 Reference ECG taken 10:37:49 HR=59 bpm, HJJC=752/72 mmhg, SpO2=98.0 %, Resp=18 B/min, Pain=0, Vish=10, Wiggins=2 10:40:57 MD arrived. 10:41:10 1 mg VERSED given in lab by Diamond Chappell, RN in Left Wrist via Peripheral IV. Ordered b y Davi Brown. Time Out. Correct patient, correct procedure, correct physician, labs, allergies, and equipment verified with laborer starch factory 10:41:53 team present. Fire risk assesment completed (see hard stop sheet for coding). Time Out Conc urred by and individual staff in procedure. 10:42:00 25 mcg FENTANYL given in lab by Diamond Chappell, RN via Peripheral IV. Ordered by Davi Brown. 20 mL 1% XYLOCAINE given in lab by Davi Brown in Right Groin via Subcutaneous. Ordered by Kevin, 10:43:01 Davi. 10:43:23 Access site was Right Femoral Artery. 10:43:25 HR=66 bpm, YNVQ=823/86 mmhg, SpO2=97.0 %, Resp=11 B/min 10:43:45 A SHEATH, FR4 TERUMO (10CM) FR 4 was advanced into the Fem Art (right) using the Percutaneo us technique. A JR 4.0 INFINITI CATHETER FR 4 was advanced over a wire. OMNIPAQUE, 350 MG, 150ML 150ML was us ed for 10:45:09 injections. 10:45:30 Activated Clotting Time Drawn Recorded Pressure: LV, HR=75, Condition=Condition 1 10:45:39 (Left Ventricle) LV 135/7/13 10:45:48 The LV was manually injected with 10 cc's and visualized. OMNIPAQUE, 350 MG, 150ML 150ML us ed. Recorded Pressure: LV, Ao, HR=60, Condition=Condition 1 10:46:04 (Left Ventricle) LV 123/7/12, (Aorta) Ao 129/71/95 10:46:54 The RCA was injected and visualized at various angles. OMNIPAQUE, 350 MG, 150ML 150ML used . 10:46:57 ACT (Normal Range 90-180) = 141 Recorded Pressure: Ao, HR=62, Condition=Condition 1 10:47:25 (Aorta) Ao 115/64/86 10:47:52 HR=59 bpm, VMHK=090/69 mmhg, SpO2=97.0 %, Resp=12 B/min, Pain=0, Vish=10, Wiggins=2 10:48:38 The SVG-OM was injected and visualized at various angles. OMNIPAQUE, 350 MG, 150ML 150ML us ed. 10:52:32 The MUIR-LAD was injected and visualized at various angles. OMNIPAQUE, 350 MG, 150ML 150ML used. 10:52:49 HR=82 bpm, VAPC=424/82 mmhg, SpO2=97.0 %, Resp=11 B/min After removing the current catheter a IM INFINITI CATHETER FR 4 was advanced over a WIRE, EXCHA NGE 260CM 10:53:38 3MMJ 260CM. 10:57:52 HR=80 bpm, HAIA=242/80 mmhg, SpO2=97.0 %, Resp=17 B/min, Pain=0, Vish=10, Wiggins=2 10:58:10 Catheter was removed A JL 4.0 INFINITI CATHETER FR 4 was advanced over a wire. OMNIPAQUE, 350 MG, 150ML 150ML was us ed for 10:58:37 injections. After removing the current catheter a JL 5.0 INFINITI CATHETER FR 4 was advanced over a WIRE, E XCHANGE 260CM 10:58:56 3MMJ 260CM. 11:00:47 The LCA was injected and visualized at various angles. OMNIPAQUE, 350 MG, 150ML 150ML used . 11:02:49 HR=80 bpm, NSIP=068/76 mmhg, SpO2=97.0 %, Resp=13 B/min 11:05:35 Catheter was removed A SHEATH, FR6.5 PRELUDE 11CM FR 6.5 was exchanged in the Fem Art (right). This was necessary in order to 11:07:25 accomodate a larger catheter. 11:07:38 6800 units HEPARIN given in lab by Diamond Chappell, CARMEL via Peripheral IV. Ordered by Davi Burnham. 11:07:50 HR=83 bpm, ISFK=102/76 mmhg, SpO2=97.0 %, Resp=12 B/min 11:08:32 A SESAR GUIDE CATHETER FR 6 was advanced over a wire. OMNIPAQUE, 350 MG, 150ML 150ML was used for injections. 11:12:51 HR=80 bpm, UCGH=011/73 mmhg, SpO2=97.0 %, Resp=14 B/min 11:14:32 Activated Clotting Time Drawn 11:15:46 A WIRE, ASAHI PROWATER 180CM 180CM was inserted via Fem Art (right). 11:15:57 Interventional wire has crossed the lesion An STENT, 3.0 12 INTEGRITY 3.0 12 Bare Metal Stent was inserted through a SESAR GUIDE CATHETER FR 6 over a 11:17:03 WIRE, ASAHI PROWATER 180CM 180CM. A STENT, 3.0 12 INTEGRITY 3.0 12 was deployed using a 30 MONE INDEFLATOR at 9 atmospheres for 15 seconds in the 11:17:13 MUIR Dist. 11:17:27 ACT (Normal Range 90-180) = 253 11:17:48 HR=79 bpm, TIES=198/80 mmhg, SpO2=96.0 %, Resp=14 B/min, Pain=0, Vish=10, Wiggins=2 11:20:04 Delivery device removed 11:21:30 Wire removed 11:21:36 Catheter was removed 11:21:42 Case End (Physician broke scrub) Assessment: Final Case, HR=57 BPM, BFFB=591/89 mmhg, Edema=Mild, Color=Normal, Skin = Warm, Dry Right Pulses: Brenton Ped=2, Femoral=2 Left Pulses: Brenton Ped=2, Femoral=2 11:22:49 Lower Right Extremities: Color=Normal Lower Left Extremities: Color=Normal Neurological: State=Alert, Ox3, NGO Respiration: Resp=9 B/min, SpO2=98 % 11:22:51 HR=85 bpm, PKZJ=962/75 mmhg, SpO2=97.0 %, Resp=14 B/min 11:23:03 Catheter(s) removed without difficulty 11:23:23 49 mL AGGRASTAT BOLUS given in lab by Diamond Chappell RN via Peripheral IV. Ordered by Davi Gil. 11:24:33 In the Fem Art (right) the SHEATH, FR6.5 PRELUDE 11CM FR 6.[address] by Prateek Munroe RT(R). 11:24:50 Sterile dressing applied to site 11:24:52 No case complications noted. 11:24:54 Cine recording checked. 11:24:55 Bedside Report will be given. 11:25:08 Implantable Device card placed in patient's chart. 11:25:10 A Left Heart Cath was performed. 0.15 mcg/kg/min AGGRASTAT DRIP given in lab by Diamond Chappell RN via Peripheral IV. Pump/Dr ip Flow = 17.68 11:25:30 ml/hr using NaCl .9 with a concentration of 12.5 mg in 250 ml. Ordered by Davi Brown. 11:27:52 HR=80 bpm, EEHG=604/78 mmhg, SpO2=97.0 %, Resp=13 B/min 11:32:13 60 mg EFFIENT given in lab by Diamond Chappell RN via Oral. Ordered by Davi Brown. 11:32:53 HR=69 bpm, BJVK=470/78 mmhg, SpO2=96.0 %, Resp=10 B/min 11:34:56 Patient moved to stretcher End Study - Contrast Media Used In Study Contrast Total Opened (mL) Total Used (mL) Total Wasted (mL) Omnipaque 200 200 0 End Study - Maximum Contrast Load Max Contrast Load (mL) 613.6 End Study - Radiation Exposure Fluoro Time (minutes) 11.3 End Study - Patient Disposition Complications Transferred To Interventional Outcome No Critical Care Bed successful
[2018-04-16] MEDS ORDERED: Misc Info for Pharmacy OTHER STA (11:36)
[2018-04-16] MEDS ORDERED: Tirofiban Bolus 2,450 MCG in Syringe/Bag 1 EACH IV.PUSH ONE (11:36)
[2018-04-16] MEDS ORDERED: Tirofiban Inj 12,500 MCG/250 ML PLAST..BAG IV.CONT SCH (12:00)
[2018-04-16] MEDS ORDERED: Iohexol 350 MG/ML 100 ML Vial (for Cath Lab) IVCONTRAST ONE (12:45)
--- NOTE | 2018-04-16 13:13 | MR ---
cc: Davi Brown MD DATE: 04/16/2018 PROCEDURE PERFORMED: Left heart catheterization, left ventriculography, coronary angiography, saphenous vein angiography, MUIR angiography, bare metal stent of the MUIR anastomosis to LAD. INDICATIONS FOR PROCEDURE: Non-STEMI, [place] [employer] class IV angina, status post CABG, coronary artery disease. CATHETERIZATION: The patient was brought to the cardiac catheterization laboratory, prepped and draped in the usual sterile fashion. 10 mL of 1% lidocaine was used to locally anesthetize the right common femoral artery. A 4-[place]izen [place] sheath placed in the right common femoral artery. 4-[place]izen [place] JR4 and JL4 catheter and MUIR catheter were used to perform left and right coronary angiography, left ventriculography, saphenous vein angiography, and MUIR angiography. FINDINGS: The LV pressure is 130/10-11. EF is 50%. There is severe hypokinesis in the inferoapical wall. The right coronary artery is large and dominant, appears to have ectatic disease. Reference vessel diameter is as large as 67 mm. There is relative stenosis in the ostial proximal segment of 30-40% angiographically and also in the mid segment. The right PDA is a medium to large-size vessel, which bifurcates approximately. The more lateral branch has disease up to 30-40% angiographically in the proximal segment. The more medial branch has disease up to 20-30% in the proximal segment. The right posterolateral artery is a large vessel, reference vessel diameter 4 mm, appears ectatic. No significant disease angiographically. It gives off a medial and a lateral branch, which are both 3 mm reference diameter vessels with mild diffuse disease up to 10-20% angiographically. The vein graft to obtuse marginal vessel is a large graft. Just beyond the graft insertion site, there is probably a 50-60% stenosis. The vessel bifurcates within about 10 mm of the graft insertion site into a more medial branch. It is a 2.5 mm vessel with no significant disease and the more lateral branch, which is 1.5 mm vessel with no significant disease angiographically. There is retrograde filling of the OM back to the left circumflex vessel, which then fills to a point of occlusion at the bifurcation with the circumflex and then fills the AV groove left circumflex distally. A-V groove left circumflex is some relatively small to medium-size vessel 2.25 mm vessel diameter, terminates in a small posterolateral artery, which is a 0.5 mm vessel. It also gives off 2 small 0.5 mm vessels in the midsegment. The MUIR to the LAD has an 85% stenosis at the anastomosis with the LAD. LAD is transapical. It appears there is actually some [id number]-ajeq collaterals that go into the inferoapical wall. The left main coronary artery has a distal 70-75% stenosis. The left circumflex has an ostial 50% stenosis. There is competitive flow seen in the proximal left circumflex. Ramus intermedius vessel is a medium sized vessel, 2.75 mm in diameter. No significant disease angiographically. LAD was noted to have a 90% stenosis in the previous catheterization. I cannot find the stenosis on this catheterization. I do see possibly a fissuring in the proximal LAD. There is stenosis up to 75%. There is competitive flow in the distal LAD. The LAD is transapical. Patient 4-Citizen [place] sheath was exchanged for the 6-[place]izen [place] sheath, 70s mL/kg of heparin was given. ACT was 253. A 6-[place]izen [place] MUIR guide was placed into the ostium of the MUIR, 0.014 Prowater wire was placed into the distal LAD through the MUIR guide and through the MUIR. A 30 x 12 Integrity stent was deployed at the anastomosis stenotic segment. 1 inflation at 9 atmospheres for 20 seconds. Stenosis went from 85% to 0% with IVONE 3 flow. Note that deployment of the stent completely reproduced the patient's symptoms. At the end of the case, the patient's chest pain was completely relieved. CONCLUSION: 1. Azu-OC-awbrtduxp myocardial infarction, culprit 85% stenosis of the anastomosis of the MUIR to the left anterior descending. 2. Otherwise, moderate to severe 3-vessel coronary artery disease. 3. Two grafts patent. 4. Low-normal LV systolic function, EF 50% with severe hypokinesis of the inferoapical wall. 5. Successful direct PCI bare metal stent of the MUIR anastomosis to LAD from 85% to 0% with IVONE 3 flow. 6. Note: Final ACT was 253. 7. We will load with Effient 60 mg p.o. now and 10 mg daily, aspirin 162 mg daily, Aggrastat drip. MD CORTES Hwang/rush/mare , 11:34 AM , 11:47 AM
--- NOTE | 2018-04-16 15:07 | P.PNIM ---
Subjective Interval history: Chief Complaint: Chest pain, upper back pain History of Present Illness: Mr. Lewis is a pleasant 52-year-old male with a history of recent CABG 2 (January 2018) who presents to the emergency department due to right-sided anterior chest wall discomfort as well as upper back pain between his shoulder blades. He was evaluated in the emergency department on 04/10/2018 due to upper back pain. He underwent a CTA study which did not reveal any aortic dissection but revealed possible pneumonia. Patient was subsequently discharged home on Levaquin. On 04/10/2018 his troponin was 0.02. Due to right- sided chest pain and upper back pain he decided to come back to the emergency department. On arrival his troponin is 0.25. EKG does not show any ST changes. Patient denies any cough, abdominal pain, fever or chills. No changes in bowel or bladder habits. 8-3 had stent placed in graft today DW RN AND PT AM LABS PROBABLE DC TOMORROW Patient had stent placed in the MUIR to the LAD Physical Exam Vital signs: Vital Signs 04/15/18 16:29 04/15/18 17:52 04/15/18 19:52 Temperature Pulse Rate 69 65 92 H Respiratory Rate 18 18 18 Blood Pressure 114/64 132/73 135/85 Pulse Oximetry 97 04/15/18 21:00 04/15/18 22:00 04/15/18 22:31 Temperature 98.3 F Pulse Rate 58 L 58 L 76 Respiratory Rate 16 Blood Pressure 147/97 H Pulse Oximetry 96 04/15/18 23:00 04/16/18 00:00 04/16/18 01:00 Temperature 97.8 F Pulse Rate 53 L 50 L 58 L Respiratory Rate 18 Blood Pressure 125/78 Pulse Oximetry 96 04/16/18 02:00 04/16/18 03:00 04/16/18 04:00 Temperature 97.6 F Pulse Rate 50 L 63 54 L Respiratory Rate 16 Blood Pressure 139/82 Pulse Oximetry 96 04/16/18 05:00 04/16/18 06:00 04/16/18 07:00 Temperature Pulse Rate 64 69 51 L Respiratory Rate Blood Pressure Pulse Oximetry 04/16/18 08:00 04/16/18 09:00 04/16/18 10:00 Temperature 98.1 F Pulse Rate 50 L 52 L 54 L Respiratory Rate 18 Blood Pressure 114/60 Pulse Oximetry 100 04/16/18 10:37 04/16/18 11:00 04/16/18 12:00 Temperature 98.1 F Pulse Rate 54 L 51 L Respiratory Rate 18 Blood Pressure 143/82 H Pulse Oximetry 95 96 04/16/18 13:00 04/16/18 14:00 Temperature Pulse Rate 57 L 55 L Respiratory Rate Blood Pressure Pulse Oximetry Intake & Output 04/15/18 04/16/18 04/16/18 18:59 06:59 18:59 Intake Total 0 / 0 250 / 250 Balance 0 / 0 250 / 250 Weight 99.79 kg 98 kg Intake: IV 250 / 250 Heparin/D5W 25,000 U/250 mL 25, 250 / 250 000 unit In 250 ml @ Per Protocol IV.CONT TITRATE PRN Rx #:[id number] Oral 0 / 0 Other: # Voids 1 Narrative: GENERAL: Awake alert and oriented 3 talkative and cooperative SKIN: Warm and dry. HEAD: Atraumatic. Normocephalic. EYES: Pupils equal and round. No scleral icterus. No injection or drainage. ENT: No nasal bleeding or discharge. Mucous membranes pink and moist. NECK: Trachea midline. No JVD. CARDIOVASCULAR: Regular rate and rhythm. S1-S2 no S3 or S4 RESPIRATORY: No accessory muscle use. Clear to auscultation. Breath sounds equal bilaterally. GASTROINTESTINAL: Abdomen soft, non-tender, nondistended. Hepatic and splenic margins not palpable. MUSCULOSKELETAL: Extremities without clubbing, cyanosis, or edema. No obvious deformities. NEUROLOGICAL: Awake and alert. No obvious cranial nerve deficits. Motor grossly within normal limits. Five out of 5 muscle strength in the arms and legs. Normal speech. PSYCHIATRIC: Appropriate mood and affect; insight and judgment normal. Results - Labs CBC & Chem 7: 04/16/18 06:04 04/15/18 12:08 Laboratory Results - last 24 hr 04/15/18 04/15/18 04/15/18 16:10 18:54 18:54 WBC 8.6 RBC 5.34 Hgb 18.4 H Hct 51.0 MCV 95.6 MCH 34.5 H MCHC 36.1 H RDW 13.8 Plt Count 167 MPV 8.5 PT INR APTT Troponin I 1.65 H* 2.50 H* 08/11/0104/15/18 04/16/18 23:40 23:50 06:04 WBC 15.5 H D RBC 5.13 Hgb 16.8 Hct 48.8 MCV 95.1 MCH 32.8 MCHC 34.4 RDW 13.7 Plt Count 174 MPV 9.3 PT 11.0 INR 1.1 APTT 37.1 H D Troponin I 3.92 H* 04/16/18 06:04 WBC RBC Hgb Hct MCV MCH MCHC RDW Plt Count MPV PT INR APTT 41.1 H Troponin I - Imaging Chest X-Ray 04/15/18 11:55 CONCLUSION: No acute cardiopulmonary process. - Procedures 04/16/2018 PROCEDURE PERFORMED: Left heart catheterization, left ventriculography, coronary angiography, saphenous vein angiography, MUIR angiography, bare metal stent of the MUIR anastomosis to LAD. INDICATIONS FOR PROCEDURE: Non-STEMI, [place] Cardiovascular Society class IV angina, status post CABG, coronary artery disease. CATHETERIZATION: The patient was brought to the cardiac catheterization laboratory, prepped and draped in the usual sterile fashion. 10 mL of 1% lidocaine was used to locally anesthetize the right common femoral artery. A 4-Telugu sheath placed in the right common femoral artery. 4-Telugu JR4 and JL4 catheter and MUIR catheter were used to perform left and right coronary angiography, left ventriculography, saphenous vein angiography, and MUIR angiography. FINDINGS: The LV pressure is 130/10-11. EF is 50%. There is severe hypokinesis in the inferoapical wall. The right coronary artery is large and dominant, appears to have ectatic disease. Reference vessel diameter is as large as 67 mm. There is relative stenosis in the ostial proximal segment of 30-40% angiographically and also in the mid segment. The right PDA is a medium to large-size vessel, which bifurcates approximately. The more lateral branch has disease up to 30-40% angiographically in the proximal segment. The more medial branch has disease up to 20-30% in the proximal segment. The right posterolateral artery is a large vessel, reference vessel diameter 4 mm, appears ectatic. No significant disease angiographically. It gives off a medial and a lateral branch, which are both 3 mm reference diameter vessels with mild diffuse disease up to 10-20% angiographically. The vein graft to obtuse marginal vessel is a large graft. Just beyond the graft insertion site, there is probably a 50-60% stenosis. The vessel bifurcates within about 10 mm of the graft insertion site into a more medial branch. It is a 2.5 mm vessel with no significant disease and the more lateral branch, which is 1.5 mm vessel with no significant disease angiographically. There is retrograde filling of the OM back to the left circumflex vessel, which then fills to a point of occlusion at the bifurcation with the circumflex and then fills the AV groove left circumflex distally. A-V groove left circumflex is some relatively small to medium-size vessel 2.25 mm vessel diameter, terminates in a small posterolateral artery, which is a 0.5 mm vessel. It also gives off 2 small 0.5 mm vessels in the midsegment. The MUIR to the LAD has an 85% stenosis at the anastomosis with the LAD. LAD is transapical. It appears there is actually some hyqb-jc-[id number] collaterals that go into the inferoapical wall. The left main coronary artery has a distal 70-75% stenosis. The left circumflex has an ostial 50% stenosis. There is competitive flow seen in the proximal left circumflex. Ramus intermedius vessel is a medium sized vessel, 2.75 mm in diameter. No significant disease angiographically. LAD was noted to have a 90% stenosis in the previous catheterization. I cannot find the stenosis on this catheterization. I do see possibly a fissuring in the proximal LAD. There is stenosis up to 75%. There is competitive flow in the distal LAD. The LAD is transapical. Patient 4-Telugu sheath was exchanged for the 6-Telugu sheath, 70s mL/kg of heparin was given. ACT was 253. A 6-Telugu MUIR guide was placed into the ostium of the MUIR, 0.014 Prowater wire was placed into the distal LAD through the MUIR guide and through the MUIR. A 30 x 12 Integrity stent was deployed at the anastomosis stenotic segment. 1 inflation at 9 atmospheres for 20 seconds. Stenosis went from 85% to 0% with IVONE 3 flow. Note that deployment of the stent completely reproduced the patient's symptoms. At the end of the case, the patient's chest pain was completely relieved. CONCLUSION: 1. [id number] myocardial infarction, culprit 85% stenosis of the anastomosis of the MUIR to the left anterior descending. 2. Otherwise, moderate to severe 3-vessel coronary artery disease. 3. Two grafts patent. 4. Low-normal LV systolic function, EF 50% with severe hypokinesis of the inferoapical wall. 5. Successful direct PCI bare metal stent of the MUIR anastomosis to LAD from 85% to 0% with IVONE 3 flow. 6. Note: Final ACT was 253. 7. We will load with Effient 60 mg p.o. now and 10 mg daily, aspirin 162 mg daily, Aggrastat drip. Assessment and Plan - Assessment (1) Acute non-ST elevation myocardial infarction (NSTEMI) Code(s): I21.4 - Non-ST elevation (NSTEMI) myocardial infarction Status: Acute (2) Coronary artery disease Code(s): I25.10 - Atherosclerotic heart disease of [place] coronary artery without angina pectoris Status: Acute - Plan Mr. Lewis is a pleasant 52-year-old male with a history of recent CABG 2 who presents to the emergency department due to persistent upper back pain as well as new onset right-sided chest pain. His troponin on 04/10/2018 was 0.02. However upon arrival on 04/15/2018 his troponin is 0.25. Cardiology was consulted. Acute non-ST elevation myocardial infarction Coronary artery disease History of CABG 2 in January 2018 -We will consult cardiology. Discussed with Dr. Brown who essentially performed cardiac cath in January as well. -Start patient on heparin drip. Cardiac cath tomorrow. -Continue aspirin 81 mg daily, Beta keith. -Patient previously was not able to tolerate lovastatin. -I discussed with patient and his at length. Will start Lipitor 20 mg tonight. If he is not able to tolerate will discontinue statin. -Stent to the MUIR to the LAD graft Hypertension -BP is somewhat elevated - last BP 152/85. -will change metoprolol to Carvedilol 6.25 BID for both heart rate and BP control. If needed, consider adding Amlodipine. Long-standing history of extensive tobacco abuse probably affected all his vessels Full code. A.m. labs Code Status: Full code Discussed Condition With: RN and patient and case management Discharge Planning: Hopeful discharge tomorrow if labs are stable (2) Coronary artery disease Qualifiers: Coronary Disease-Associated Artery/Lesion type: unspecified vessel or lesion type [place] vs. transplanted heart: [place] heart
[2018-04-17 04:22] LABS: Baso % (Auto) 0.4 % (0.0-2.0); Eos # (Auto) 0.1 th/mm3 (0.0-0.4); Eos % (Auto) 0.5 % (0.0-4.0); Hematocrit 45.8 % (39.0-51.0); Hemoglobin 16.2 gm/dL (13.0-17.0); Lymph # (Auto) 2.3 th/mm3 (1.0-4.8); Lymph % (Auto) 23.2 % (9.0-44.0); Mean Corpuscular HGB Conc 35.3 % (32.0-36.0); Mean Corpuscular Hemoglobin 33.7 pg (27.0-34.0); Mean Corpuscular Volume 95.3 fL (80.0-100.0); Mean Platelet Volume 8.8 fL (7.0-11.0); Mono # (Auto) 0.6 th/mm3 (0.0-0.9); Mono % (Auto) 6.5 % (0.0-8.0); Neut # (Auto) 6.7 th/mm3 (1.8-7.7); Neut % (Auto) 69.4 % (16.0-70.0); Platelet Count 146 th/mm3 (150-450); White Blood Count 9.7 th/mm3 (4.0-11.0)
[2018-04-17 04:43] LABS: Albumin 3.6 g/dL (3.4-5.0); Anion Gap 10 meq/L (5-15); Aspartate Aminotransferase 36 U/L (15-37); Blood Urea Nitrogen 23 mg/dL (7-18); Calcium 8.5 mg/dL (8.5-10.1); Carbon Dioxide 24.3 meq/L (21.0-32.0); Chloride 106 meq/L (98-107); Glomerular Filtration Rate Greater Than 89 mL/min (>89); Glucose,Random 97 mg/dL (74-106); Magnesium 2.1 mg/dL (1.5-2.5); Potassium 3.9 meq/L (3.5-5.1); Sodium 140 meq/L (136-145)
[2018-04-17 04:44] LABS: Alanine Aminotransferase 59 U/L (12-78); Cholesterol 191 mg/dL (120-200); Triglycerides 165 mg/dL (42-150)
[2018-04-17 04:52] LABS: Alkaline Phosphatase 65 U/L (45-117); Chol/HDL Ratio 5.02 Ratio; Free T4 (Free Thyroxine) 1.08 ng/dL (0.76-1.46); LDL Cholesterol,Calculated 120 mg/dL (0-99); Total Protein 7.1 g/dL (6.4-8.2)
[2018-04-17 04:53] LABS: Creatine Kinase 42 U/L (39-308)
[2018-04-17] MEDS: Carvedilol 6.25 MG Tablet PO SCH (08:02)
--- NOTE | 2018-04-17 10:21 | P.PNIM ---
Subjective Interval history: Mr. Lewis is a pleasant 52-year-old male with a history of recent CABG 2 (January 2018) who presents to the emergency department due to right-sided anterior chest wall discomfort as well as upper back pain between his shoulder blades. He was evaluated in the emergency department on 04/10/2018 due to upper back pain. He underwent a CTA study which did not reveal any aortic dissection but revealed possible pneumonia. Patient was subsequently discharged home on Levaquin. On 04/10/2018 his troponin was 0.02. Due to right- sided chest pain and upper back pain he decided to come back to the emergency department. On arrival his troponin is 0.25. EKG does not show any ST changes. Patient denies any cough, abdominal pain, fever or chills. No changes in bowel or bladder habits. 8-3 had stent placed in graft today DW RN AND PT AM LABS PROBABLE DC TOMORROW Patient had stent placed in the MUIR to the LAD 8-4 LABS ARE STABLE WANTS TO GO HOME DW RN AND PT AND CM WILL NEED FOLLOW UP Physical Exam Vital signs: Vital Signs 04/16/18 10:37 04/16/18 11:00 04/16/18 12:00 Temperature 98.1 F Pulse Rate 54 L 51 L Respiratory Rate 18 Blood Pressure 143/82 H Pulse Oximetry 95 96 04/16/18 13:00 04/16/18 14:00 04/16/18 15:00 Temperature Pulse Rate 57 L 55 L 59 L Respiratory Rate Blood Pressure Pulse Oximetry 04/16/18 16:00 04/16/18 17:00 04/16/18 18:00 Temperature 97.7 F Pulse Rate 61 50 L 63 Respiratory Rate 16 Blood Pressure 120/68 Pulse Oximetry 97 04/16/18 19:00 04/16/18 20:00 04/16/18 21:00 Temperature 98.7 F Pulse Rate 59 L 50 L 58 L Respiratory Rate 18 Blood Pressure 157/83 H Pulse Oximetry 96 04/16/18 22:00 04/16/18 23:00 04/17/18 00:00 Temperature 97.9 F Pulse Rate 52 L 49 L 50 L Respiratory Rate 18 Blood Pressure 129/68 Pulse Oximetry 97 04/17/18 01:00 04/17/18 02:00 04/17/18 03:00 Temperature Pulse Rate 54 L 48 L 53 L Respiratory Rate Blood Pressure Pulse Oximetry 04/17/18 04:00 04/17/18 05:00 04/17/18 06:00 Temperature 97.7 F Pulse Rate 54 L 50 L 57 L Respiratory Rate 16 Blood Pressure 115/67 Pulse Oximetry 97 04/17/18 07:00 04/17/18 08:00 04/17/18 09:00 Temperature 98.3 F Pulse Rate 74 59 L 47 L Respiratory Rate 20 Blood Pressure 147/88 H Pulse Oximetry 98 04/17/18 10:00 Temperature Pulse Rate 51 L Respiratory Rate Blood Pressure Pulse Oximetry Intake & Output 04/16/18 04/17/18 04/17/18 18:59 06:59 18:59 Intake Total 490 / 490 608.2 / 608.2 Output Total 500 / 500 1050 / 1050 Balance -10 / -10 -441.8 / -441.8 Weight 98 kg Intake: IV 250 / 250 338.2 / 338.2 Heparin/D5W 25,000 U/250 mL 25, 250 / 250 000 unit In 250 ml @ Per Protocol IV.CONT TITRATE PRN Rx #:[id number] Aggrastat Inj 12,500 mcg In 250 88.2 / 88.2 ml @ Per Protocol IV.CONT .Q0M JAREK Rx#:[id number] Oral 240 / 240 270 / 270 Output: Urine 500 / 500 1050 / 1050 Other: # Voids 1 Date of Last Bowel Movement 04/16/18 Narrative: GENERAL: Awake alert and oriented 3 talkative and cooperative SKIN: Warm and dry. HEAD: Atraumatic. Normocephalic. EYES: Pupils equal and round. No scleral icterus. No injection or drainage. ENT: No nasal bleeding or discharge. Mucous membranes pink and moist. NECK: Trachea midline. No JVD. CARDIOVASCULAR: Regular rate and rhythm. S1-S2 no S3 or S4 RESPIRATORY: No accessory muscle use. Clear to auscultation. Breath sounds equal bilaterally. GASTROINTESTINAL: Abdomen soft, non-tender, nondistended. Hepatic and splenic margins not palpable. MUSCULOSKELETAL: Extremities without clubbing, cyanosis, or edema. No obvious deformities. NEUROLOGICAL: Awake and alert. No obvious cranial nerve deficits. Motor grossly within normal limits. Five out of 5 muscle strength in the arms and legs. Normal speech. PSYCHIATRIC: Appropriate mood and affect; insight and judgment normal. Results - Labs CBC & Chem 7: 04/17/18 03:54 04/17/18 03:54 Laboratory Results - last 24 hr 04/16/18 04/17/18 04/17/18 14:16 03:54 03:54 WBC 9.7 RBC 4.80 Hgb 16.2 Hct 45.8 MCV 95.3 MCH 33.7 MCHC 35.3 RDW 14.0 Plt Count 146 L MPV 8.8 Neut % (Auto) 69.4 Lymph % (Auto) 23.2 [place] % (Auto) 6.5 Eos % (Auto) 0.5 Baso % (Auto) 0.4 Neut # (Auto) 6.7 Lymph # (Auto) 2.3 [place] # (Auto) 0.6 Eos # (Auto) 0.1 Baso # (Auto) 0.0 WBC Differential . Differential Comment Auto diff final APTT 36.4 H Sodium 140 Potassium 3.9 Chloride 106 Carbon Dioxide 24.3 Anion Gap 10 BUN 23 H Creatinine 0.74 Estimated GFR Greater than 89 Random Glucose 97 Calcium 8.5 Phosphorus 3.0 Magnesium 2.1 Total Bilirubin 0.5 AST 36 ALT 59 Alkaline Phosphatase 65 Total Creatine Kinase 42 Total Protein 7.1 D Albumin 3.6 Triglycerides 165 H Cholesterol 191 LDL Cholesterol, Calc 120 H HDL Cholesterol 38.0 L Cholesterol/HDL Ratio 5.02 TSH 1.980 Free T4 1.08 - Imaging Chest X-Ray 04/15/18 11:55 CONCLUSION: No acute cardiopulmonary process. - Procedures 04/16/2018 PROCEDURE PERFORMED: Left heart catheterization, left ventriculography, coronary angiography, saphenous vein angiography, MUIR angiography, bare metal stent of the MUIR anastomosis to LAD. INDICATIONS FOR PROCEDURE: Non-STEMI, [place] Cardiovascular Society class IV angina, status post CABG, coronary artery disease. CATHETERIZATION: The patient was brought to the cardiac catheterization laboratory, prepped and draped in the usual sterile fashion. 10 mL of 1% lidocaine was used to locally anesthetize the right common femoral artery. A 4-Prydeinig sheath placed in the right common femoral artery. 4-Prydeinig JR4 and JL4 catheter and MUIR catheter were used to perform left and right coronary angiography, left ventriculography, saphenous vein angiography, and MUIR angiography. FINDINGS: The LV pressure is 130/10-11. EF is 50%. There is severe hypokinesis in the inferoapical wall. The right coronary artery is large and dominant, appears to have ectatic disease. Reference vessel diameter is as large as 67 mm. There is relative stenosis in the ostial proximal segment of 30-40% angiographically and also in the mid segment. The right PDA is a medium to large-size vessel, which bifurcates approximately. The more lateral branch has disease up to 30-40% angiographically in the proximal segment. The more medial branch has disease up to 20-30% in the proximal segment. The right posterolateral artery is a large vessel, reference vessel diameter 4 mm, appears ectatic. No significant disease angiographically. It gives off a medial and a lateral branch, which are both 3 mm reference diameter vessels with mild diffuse disease up to 10-20% angiographically. The vein graft to obtuse marginal vessel is a large graft. Just beyond the graft insertion site, there is probably a 50-60% stenosis. The vessel bifurcates within about 10 mm of the graft insertion site into a more medial branch. It is a 2.5 mm vessel with no significant disease and the more lateral branch, which is 1.5 mm vessel with no significant disease angiographically. There is retrograde filling of the OM back to the left circumflex vessel, which then fills to a point of occlusion at the bifurcation with the circumflex and then fills the AV groove left circumflex distally. A-V groove left circumflex is some relatively small to medium-size vessel 2.25 mm vessel diameter, terminates in a small posterolateral artery, which is a 0.5 mm vessel. It also gives off 2 small 0.5 mm vessels in the midsegment. The MUIR to the LAD has an 85% stenosis at the anastomosis with the LAD. LAD is transapical. It appears there is actually some [id number] collaterals that go into the inferoapical wall. The left main coronary artery has a distal 70-75% stenosis. The left circumflex has an ostial 50% stenosis. There is competitive flow seen in the proximal left circumflex. Ramus intermedius vessel is a medium sized vessel, 2.75 mm in diameter. No significant disease angiographically. LAD was noted to have a 90% stenosis in the previous catheterization. I cannot find the stenosis on this catheterization. I do see possibly a fissuring in the proximal LAD. There is stenosis up to 75%. There is competitive flow in the distal LAD. The LAD is transapical. Patient 4-Prydeinig sheath was exchanged for the 6-Prydeinig sheath, 70s mL/kg of heparin was given. ACT was 253. A 6-Prydeinig MUIR guide was placed into the ostium of the MUIR, 0.014 Prowater wire was placed into the distal LAD through the MUIR guide and through the MUIR. A 30 x 12 Integrity stent was deployed at the anastomosis stenotic segment. 1 inflation at 9 atmospheres for 20 seconds. Stenosis went from 85% to 0% with IVONE 3 flow. Note that deployment of the stent completely reproduced the patient's symptoms. At the end of the case, the patient's chest pain was completely relieved. CONCLUSION: 1. [id number] myocardial infarction, culprit 85% stenosis of the anastomosis of the MUIR to the left anterior descending. 2. Otherwise, moderate to severe 3-vessel coronary artery disease. 3. Two grafts patent. 4. Low-normal LV systolic function, EF 50% with severe hypokinesis of the inferoapical wall. 5. Successful direct PCI bare metal stent of the MUIR anastomosis to LAD from 85% to 0% with IVONE 3 flow. 6. Note: Final ACT was 253. 7. We will load with Effient 60 mg p.o. now and 10 mg daily, aspirin 162 mg daily, Aggrastat drip. Assessment and Plan - Assessment (1) Acute non-ST elevation myocardial infarction (NSTEMI) Code(s): I21.4 - Non-ST elevation (NSTEMI) myocardial infarction Status: Acute (2) Coronary artery disease Code(s): I25.10 - Atherosclerotic heart disease of [place] coronary artery without angina pectoris Status: Acute - Plan Mr. Lewis is a pleasant 52-year-old male with a history of recent CABG 2 who presents to the emergency department due to persistent upper back pain as well as new onset right-sided chest pain. His troponin on 04/10/2018 was 0.02. However upon arrival on 04/15/2018 his troponin is 0.25. Cardiology was consulted. Acute non-ST elevation myocardial infarction Coronary artery disease History of CABG 2 in January 2018 -We will consult cardiology. Discussed with Dr. Brown who essentially performed cardiac cath in January as well. -Start patient on heparin drip. Cardiac cath tomorrow. -Continue aspirin 81 mg daily, Beta keith. -Patient previously was not able to tolerate lovastatin. -I discussed with patient and his at length. Will start Lipitor 20 mg tonight. If he is not able to tolerate will discontinue statin. -Stent to the MUIR to the LAD graft Hypertension -BP is somewhat elevated - last BP 152/85. -will change metoprolol to Carvedilol 6.25 BID for both heart rate and BP control. If needed, consider adding Amlodipine. Long-standing history of extensive tobacco abuse probably affected all his vessels Full code. DC TO HOME TODAY Code Status: FULL CODE Discussed Condition With: RN AND PT AND CM Discharge Planning: DC TO HOME TODAY (2) Coronary artery disease Qualifiers: Coronary Disease-Associated Artery/Lesion type: unspecified vessel or lesion type [place] vs. transplanted heart: [place] heart
--- NOTE | 2018-04-17 10:29 | P.DS ---
Date of admission: 04/15/18 13:52 Primary care physician: No Primary Care Physician Attending physician on discharge: Simeon Schreiber Anticipated date of discharge: 04/17/18 Brief History from admission: Mr. Lewis is a pleasant 52-year-old male with a history of recent CABG 2 (January 2018) who presents to the emergency department due to right-sided anterior chest wall discomfort as well as upper back pain between his shoulder blades. He was evaluated in the emergency department on 04/10/2018 due to upper back pain. He underwent a CTA study which did not reveal any aortic dissection but revealed possible pneumonia. Patient was subsequently discharged home on Levaquin. On 04/10/2018 his troponin was 0.02. Due to right- sided chest pain and upper back pain he decided to come back to the emergency department. On arrival his troponin is 0.25. EKG does not show any ST changes. Patient denies any cough, abdominal pain, fever or chills. No changes in bowel or bladder habits. DS: Diagnosis - Discharge Diagnosis (1) Acute non-ST elevation myocardial infarction (NSTEMI) Status: Acute (2) Coronary artery disease Status: Chronic DS: Medications - Discharge Medications Prescriptions: aspirin [Aspir-Low] 81 mg PO DAILY #30 tab atorvastatin 40 mg PO HS #30 tab carvedilol [Coreg] 6.25 mg PO BID #60 tab lisinopril 2.5 mg PO DAILY #30 tab DS: Summary Hospital Course: Mr. Lewis is a pleasant 52-year-old male with a history of recent CABG 2 (January 2018) who presents to the emergency department due to right-sided anterior chest wall discomfort as well as upper back pain between his shoulder blades. He was evaluated in the emergency department on 04/10/2018 due to upper back pain. He underwent a CTA study which did not reveal any aortic dissection but revealed possible pneumonia. Patient was subsequently discharged home on Levaquin. On 04/10/2018 his troponin was 0.02. Due to right- sided chest pain and upper back pain he decided to come back to the emergency department. On arrival his troponin is 0.25. EKG does not show any ST changes. Patient denies any cough, abdominal pain, fever or chills. No changes in bowel or bladder habits. 8-3 had stent placed in graft today DW RN AND PT AM LABS PROBABLE DC TOMORROW Patient had stent placed in the MUIR to the LAD 8-4 LABS ARE STABLE WANTS TO GO HOME DW RN AND PT AND CM WILL NEED FOLLOW UP - Time Spent with Patient Total time spent providing and/or coordinating discharge services: Greater than 30 minutes Exam Vital signs: Vital Signs 04/16/18 10:37 04/16/18 11:00 04/16/18 12:00 Temperature 98.1 F Pulse Rate 54 L 51 L Respiratory Rate 18 Blood Pressure 143/82 H Pulse Oximetry 95 96 04/16/18 13:00 04/16/18 14:00 04/16/18 15:00 Temperature Pulse Rate 57 L 55 L 59 L Respiratory Rate Blood Pressure Pulse Oximetry 04/16/18 16:00 04/16/18 17:00 04/16/18 18:00 Temperature 97.7 F Pulse Rate 61 50 L 63 Respiratory Rate 16 Blood Pressure 120/68 Pulse Oximetry 97 04/16/18 19:00 04/16/18 20:00 04/16/18 21:00 Temperature 98.7 F Pulse Rate 59 L 50 L 58 L Respiratory Rate 18 Blood Pressure 157/83 H Pulse Oximetry 96 04/16/18 22:00 04/16/18 23:00 04/17/18 00:00 Temperature 97.9 F Pulse Rate 52 L 49 L 50 L Respiratory Rate 18 Blood Pressure 129/68 Pulse Oximetry 97 04/17/18 01:00 04/17/18 02:00 04/17/18 03:00 Temperature Pulse Rate 54 L 48 L 53 L Respiratory Rate Blood Pressure Pulse Oximetry 04/17/18 04:00 04/17/18 05:00 04/17/18 06:00 Temperature 97.7 F Pulse Rate 54 L 50 L 57 L Respiratory Rate 16 Blood Pressure 115/67 Pulse Oximetry 97 04/17/18 07:00 04/17/18 08:00 04/17/18 09:00 Temperature 98.3 F Pulse Rate 74 59 L 47 L Respiratory Rate 20 Blood Pressure 147/88 H Pulse Oximetry 98 04/17/18 10:00 Temperature Pulse Rate 51 L Respiratory Rate Blood Pressure Pulse Oximetry Intake & Output 04/16/18 04/17/18 04/17/18 18:59 06:59 18:59 Intake Total 490 / 490 608.2 / 608.2 Output Total 500 / 500 1050 / 1050 Balance -10 / -10 -441.8 / -441.8 Weight 98 kg Intake: IV 250 / 250 338.2 / 338.2 Heparin/D5W 25,000 U/250 mL 25, 250 / 250 000 unit In 250 ml @ Per Protocol IV.CONT TITRATE PRN Rx #:[id number] Aggrastat Inj 12,500 mcg In 250 88.2 / 88.2 ml @ Per Protocol IV.CONT .Q0M JAREK Rx#:[id number] Oral 240 / 240 270 / 270 Output: Urine 500 / 500 1050 / 1050 Other: # Voids 1 Date of Last Bowel Movement 04/16/18 Narrative: GENERAL: Awake alert and oriented 3 talkative and cooperative SKIN: Warm and dry. HEAD: Atraumatic. Normocephalic. EYES: Pupils equal and round. No scleral icterus. No injection or drainage. ENT: No nasal bleeding or discharge. Mucous membranes pink and moist. NECK: Trachea midline. No JVD. CARDIOVASCULAR: Regular rate and rhythm. S1-S2 no S3 or S4 RESPIRATORY: No accessory muscle use. Clear to auscultation. Breath sounds equal bilaterally. GASTROINTESTINAL: Abdomen soft, non-tender, nondistended. Hepatic and splenic margins not palpable. MUSCULOSKELETAL: Extremities without clubbing, cyanosis, or edema. No obvious deformities. NEUROLOGICAL: Awake and alert. No obvious cranial nerve deficits. Motor grossly within normal limits. Five out of 5 muscle strength in the arms and legs. Normal speech. PSYCHIATRIC: Appropriate mood and affect; insight and judgment normal. Results Procedures completed during hospitalization: 04/16/2018 PROCEDURE PERFORMED: Left heart catheterization, left ventriculography, coronary angiography, saphenous vein angiography, MUIR angiography, bare metal stent of the MUIR anastomosis to LAD. INDICATIONS FOR PROCEDURE: Non-STEMI, [place] [employer] class IV angina, status post CABG, coronary artery disease. CATHETERIZATION: The patient was brought to the cardiac catheterization laboratory, prepped and draped in the usual sterile fashion. 10 mL of 1% lidocaine was used to locally anesthetize the right common femoral artery. A 4-Lithuanian sheath placed in the right common femoral artery. 4-Lithuanian JR4 and JL4 catheter and MUIR catheter were used to perform left and right coronary angiography, left ventriculography, saphenous vein angiography, and MUIR angiography. FINDINGS: The LV pressure is 130/10-11. EF is 50%. There is severe hypokinesis in the inferoapical wall. The right coronary artery is large and dominant, appears to have ectatic disease. Reference vessel diameter is as large as 67 mm. There is relative stenosis in the ostial proximal segment of 30-40% angiographically and also in the mid segment. The right PDA is a medium to large-size vessel, which bifurcates approximately. The more lateral branch has disease up to 30-40% angiographically in the proximal segment. The more medial branch has disease up to 20-30% in the proximal segment. The right posterolateral artery is a large vessel, reference vessel diameter 4 mm, appears ectatic. No significant disease angiographically. It gives off a medial and a lateral branch, which are both 3 mm reference diameter vessels with mild diffuse disease up to 10-20% angiographically. The vein graft to obtuse marginal vessel is a large graft. Just beyond the graft insertion site, there is probably a 50-60% stenosis. The vessel bifurcates within about 10 mm of the graft insertion site into a more medial branch. It is a 2.5 mm vessel with no significant disease and the more lateral branch, which is 1.5 mm vessel with no significant disease angiographically. There is retrograde filling of the OM back to the left circumflex vessel, which then fills to a point of occlusion at the bifurcation with the circumflex and then fills the AV groove left circumflex distally. A-V groove left circumflex is some relatively small to medium-size vessel 2.25 mm vessel diameter, terminates in a small posterolateral artery, which is a 0.5 mm vessel. It also gives off 2 small 0.5 mm vessels in the midsegment. The MUIR to the LAD has an 85% stenosis at the anastomosis with the LAD. LAD is transapical. It appears there is actually some [id number] collaterals that go into the inferoapical wall. The left main coronary artery has a distal 70-75% stenosis. The left circumflex has an ostial 50% stenosis. There is competitive flow seen in the proximal left circumflex. Ramus intermedius vessel is a medium sized vessel, 2.75 mm in diameter. No significant disease angiographically. LAD was noted to have a 90% stenosis in the previous catheterization. I cannot find the stenosis on this catheterization. I do see possibly a fissuring in the proximal LAD. There is stenosis up to 75%. There is competitive flow in the distal LAD. The LAD is transapical. Patient 4-Lithuanian sheath was exchanged for the 6-Lithuanian sheath, 70s mL/kg of heparin was given. ACT was 253. A 6-Lithuanian MUIR guide was placed into the ostium of the MUIR, 0.014 Prowater wire was placed into the distal LAD through the MUIR guide and through the MUIR. A 30 x 12 Integrity stent was deployed at the anastomosis stenotic segment. 1 inflation at 9 atmospheres for 20 seconds. Stenosis went from 85% to 0% with IVONE 3 flow. Note that deployment of the stent completely reproduced the patient's symptoms. At the end of the case, the patient's chest pain was completely relieved. CONCLUSION: 1. [id number] myocardial infarction, culprit 85% stenosis of the anastomosis of the MUIR to the left anterior descending. 2. Otherwise, moderate to severe 3-vessel coronary artery disease. 3. Two grafts patent. 4. Low-normal LV systolic function, EF 50% with severe hypokinesis of the inferoapical wall. 5. Successful direct PCI bare metal stent of the MUIR anastomosis to LAD from 85% to 0% with IVONE 3 flow. 6. Note: Final ACT was 253. 7. We will load with Effient 60 mg p.o. now and 10 mg daily, aspirin 162 mg daily, Aggrastat drip. Completed studies during hospitalization: Laboratory Results WBC 9.7 th/mm3 (4.0-11.0) 04/17/18 03:54 RBC 4.80 mil/mm3 (4.50-5.90) 04/17/18 03:54 Hgb 16.2 gm/dL (13.0-17.0) 04/17/18 03:54 Hct 45.8 % (39.0-51.0) 04/17/18 03:54 MCV 95.3 fL (80.0-100.0) 04/17/18 03:54 MCH 33.7 pg (27.0-34.0) 04/17/18 03:54 MCHC 35.3 % (32.0-36.0) 04/17/18 03:54 RDW 14.0 % (11.6-17.2) 04/17/18 03:54 Plt Count 146 th/mm3 (150-450) L 04/17/18 03:54 MPV 8.8 fL (7.0-11.0) 04/17/18 03:54 Neut % (Auto) 69.4 % (16.0-70.0) 04/17/18 03:54 Lymph % (Auto) 23.2 % (9.0-44.0) 04/17/18 03:54 Starr % (Auto) 6.5 % (0.0-8.0) 04/17/18 03:54 Eos % (Auto) 0.5 % (0.0-4.0) 04/17/18 03:54 Baso % (Auto) 0.4 % (0.0-2.0) 04/17/18 03:54 Neut # (Auto) 6.7 th/mm3 (1.8-7.7) 04/17/18 03:54 Lymph # (Auto) 2.3 th/mm3 (1.0-4.8) 04/17/18 03:54 Starr # (Auto) 0.6 th/mm3 (0.0-0.9) 04/17/18 03:54 Eos # (Auto) 0.1 th/mm3 (0.0-0.4) 04/17/18 03:54 Baso # (Auto) 0.0 th/mm3 (0.0-0.2) 04/17/18 03:54 WBC Differential . 04/17/18 03:54 Differential Comment Auto diff final 04/17/18 03:54 PT 11.0 sec (9.8-11.6) 04/15/18 23:40 INR 1.1 Ratio 04/15/18 23:40 APTT 36.4 sec (24.3-30.1) H 04/16/18 14:16 Sodium 140 meq/L (136-145) 04/17/18 03:54 Potassium 3.9 meq/L (3.5-5.1) 04/17/18 03:54 Chloride 106 meq/L (98-107) 04/17/18 03:54 Carbon Dioxide 24.3 meq/L (21.0-32.0) 04/17/18 03:54 Anion Gap 10 meq/L (5-15) 04/17/18 03:54 BUN 23 mg/dL (7-18) H 04/17/18 03:54 Creatinine 0.74 mg/dL (0.60-1.30) 04/17/18 03:54 Estimated GFR Greater than 89 mL/min (>89) 04/17/18 03:54 Random Glucose 97 mg/dL (74-106) 04/17/18 03:54 Calcium 8.5 mg/dL (8.5-10.1) 04/17/18 03:54 Phosphorus 3.0 mg/dL (2.5-4.9) 04/17/18 03:54 Magnesium 2.1 mg/dL (1.5-2.5) 04/17/18 03:54 Total Bilirubin 0.5 mg/dL (0.2-1.0) 04/17/18 03:54 AST 36 U/L (15-37) 04/17/18 03:54 ALT 59 U/L (12-78) 04/17/18 03:54 Alkaline Phosphatase 65 U/L (45-117) 04/17/18 03:54 Total Creatine Kinase 42 U/L (39-308) 04/17/18 03:54 Troponin I 3.92 ng/mL (0.02-0.05) H* 04/15/18 23:50 B-Natriuretic Peptide 53 pg/mL (0-100) 04/15/18 12:08 Total Protein 7.1 g/dL (6.4-8.2) D 04/17/18 03:54 Albumin 3.6 g/dL (3.4-5.0) 04/17/18 03:54 Triglycerides 165 mg/dL (42-150) H 04/17/18 03:54 Cholesterol 191 mg/dL (120-200) 04/17/18 03:54 LDL Cholesterol, Calc 120 mg/dL (0-99) H 04/17/18 03:54 HDL Cholesterol 38.0 mg/dL (40.0-60.0) L 04/17/18 03:54 Cholesterol/HDL Ratio 5.02 Ratio 04/17/18 03:54 TSH 1.980 uIU/mL (0.358-3.740) 04/17/18 03:54 Free T4 1.08 ng/dL (0.76-1.46) 04/17/18 03:54 Impressions Chest X-Ray 04/15/18 11:55 CONCLUSION: No acute cardiopulmonary process. Labs on day of discharge: Labs from last 24 hours 04/17/18 04/17/18 04/17/18 03:54 03:54 03:54 WBC 9.7 RBC 4.80 Hgb 16.2 Hct 45.8 MCV 95.3 MCH 33.7 MCHC 35.3 RDW 14.0 Plt Count 146 L MPV 8.8 Neut % (Auto) 69.4 Lymph % (Auto) 23.2 Starr % (Auto) 6.5 Eos % (Auto) 0.5 Baso % (Auto) 0.4 Neut # (Auto) 6.7 Lymph # (Auto) 2.3 Starr # (Auto) 0.6 Eos # (Auto) 0.1 Baso # (Auto) 0.0 WBC Differential . Differential Comment Auto diff final APTT Sodium 140 Potassium 3.9 Chloride 106 Carbon Dioxide 24.3 Anion Gap 10 BUN 23 H Creatinine 0.74 Estimated GFR Greater than 89 Random Glucose 97 Hemoglobin A1c Pending Calcium 8.5 Phosphorus 3.0 Magnesium 2.1 Total Bilirubin 0.5 AST 36 ALT 59 Alkaline Phosphatase 65 Total Creatine Kinase 42 Total Protein 7.1 D Albumin 3.6 Triglycerides 165 H Cholesterol 191 LDL Cholesterol, Calc 120 H HDL Cholesterol 38.0 L Cholesterol/HDL Ratio 5.02 TSH 1.980 Free T4 1.08 04/16/18 14:16 WBC RBC Hgb Hct MCV MCH MCHC RDW Plt Count MPV Neut % (Auto) Lymph % (Auto) Starr % (Auto) Eos % (Auto) Baso % (Auto) Neut # (Auto) Lymph # (Auto) Starr # (Auto) Eos # (Auto) Baso # (Auto) WBC Differential Differential Comment APTT 36.4 H Sodium Potassium Chloride Carbon Dioxide Anion Gap BUN Creatinine Estimated GFR Random Glucose Hemoglobin A1c Calcium Phosphorus Magnesium Total Bilirubin AST ALT Alkaline Phosphatase Total Creatine Kinase Total Protein Albumin Triglycerides Cholesterol LDL Cholesterol, Calc HDL Cholesterol Cholesterol/HDL Ratio TSH Free T4 - Impressions ITS Impressions Chest X-Ray 04/15/18 11:55 CONCLUSION: No acute cardiopulmonary process. Discharge Plan - Discharge Disposition Patient Disposition: 01 Discharge Home - Discharge Condition Condition: Stable - Discharge Order Discharge Orders: Discharge Order (Routine); Ordered 04/17/18 Ordered By: Simeon Schreiber - Discharge Details Anticipated Discharge Date: 04/17/18 Discharge Comment: DC TO HOME - Physicians Team Primary Care Provider: Primary Care Sho,Brittany Attending Provider: Simeon Schreiber Other Providers: Davi Brown MD
[2018-04-17 13:28] LABS: Hemoglobin A1c 5.1 % (4.3-6.0)
--- NOTE | 2018-04-17 13:49 | ECG ---
Date Performed: 04/17/2018 Time Performed: 04:52:44 PTAGE: 52 years EKG: Sinus bradycardia. Anteroseptal infarct - age undetermined Lateral T wave changes Low QRS v oltages in precordial leads Since the previous tracing, no significant change noted Abnormal ECG PREVIOUS TRACING : 04/15/2018 22.11 DOCTOR: Mariia Swenson Interpretating Date/Time 04/17/2018 13:47:25
[2018-04-18] MEDS ORDERED: Lisinopril 5 MG Tablet PO SCH (09:00)
[2018-04-20 17:52] VITALS: PULSE 56
[2018-04-20 17:54] VITALS: O2SAT 97
[2018-04-20 18:06] VITALS: BP 133/76
[2018-04-20 18:20] VITALS: TEMP 97.7
== END 2018-04-17 11:43 | disposition home or self-care (01) ==
LOC: NEPC 11:15 → NEDA 13:52 → HCIS 21:14
PROVIDERS: ADMIT Hospitalist; ATTEND Hospitalist